=== PATIENT | male | born 1930 | race Hispanic/Latino ===

== ENCOUNTER 2018-01-28 13:35 | Inpatient (IN) | payer MEDICARE, BC ==
--- NOTE | 2018-01-28 14:06 | ED PDOC ---
Arrival/HPI - General Chief Complaint: Syncope Time Seen by Provider: 01/28/18 14:00 Historian: Patient - History of Present Illness Narrative History of Present Illness (Text): 01/28/18 14:00 87 year old male, whose past medical history includes afibrillation and cardiac catheter surgery 3 weeks ago, who presents to the Emergency Department s/p syncope. Patient states after his cardiac surgery, he experienced a GI bleed, for which he was treated for. Patient was at home when he passed out. Upon EMS arrival, patient was awake and alert, hypotensive, and bradycardiac. Patient was given 500cc normal saline and atropine 1mg. Patient has no complaints at this time. Time/Duration: Prior to Arrival Symptom Onset: Sudden Symptom Course: Unchanged Activities at Onset: Light Context: Home Past Medical History - Provider Review Nursing Documentation Reviewed: Yes - Cardiac Hx Congestive Heart Failure: Yes Hx Hypertension: Yes - Neurological Hx Paralysis: No - Hematological/Oncological Hx Blood Transfusions: No Hx Blood Transfusion Reaction: No - Musculoskeletal/Rheumatological Hx Musculoskeletal Disorders: No - Psychiatric Hx Emotional Abuse: No Hx Physical Abuse: No Hx Substance Use: No - Anesthesia Hx Anesthesia Reactions: No Hx Malignant Hyperthermia: No - Suicidal Assessment Feels Threatened In Home Enviroment: No Family/Social History - Physician Review Nursing Documentation Reviewed: Yes Family/Social History: Unknown Family HX Smoking Status: Former Smoker Hx Alcohol Use: No (QUIT 25 YRS AGO) Hx Substance Use: No Allergies/Home Meds Allergies/Adverse Reactions: Allergies Penicillins Allergy (Verified 01/28/18 13:39) RASH Home Medications: Home Meds Medication Instructions Recorded Confirmed Apixaban [Eliquis] 2.5 mg PO BID 01/28/18 01/28/18 Atorvastatin [Lipitor] 40 mg PO QPM 01/28/18 01/28/18 Clopidogrel [Plavix] 75 mg PO DAILY 01/28/18 01/28/18 Ferrous Sulfate [Feosol] 325 mg PO BID 01/28/18 01/28/18 Folic Acid 1 mg PO QPM 01/28/18 01/28/18 Furosemide [Lasix] 40 mg PO DAILY 01/28/18 01/28/18 Multivitamin [Honey Bears] 1 tab PO DAILY 01/28/18 01/28/18 Pantoprazole Sodium [Protonix] 20 mg PO DAILY 01/28/18 01/28/18 Review of Systems - Physician Review All systems were reviewed & negative as marked: Yes - Review of Systems Constitutional: Normal Eyes: Normal ENT: Normal Respiratory: Normal. absent: SOB, Cough Cardiovascular: Normal. absent: Chest Pain Gastrointestinal: Normal. absent: Abdominal Pain Genitourinary Male: Normal. absent: Dysuria, Frequency Musculoskeletal: Normal. absent: Back Pain, Neck Pain Skin: Normal. absent: Rash Neurological: Normal. absent: Headache, Dizziness Endocrine: Normal Hemo/Lymphatic: Normal Psychiatric: Normal Physical Exam Vital Signs Reviewed: Yes Vital Signs Temp Pulse Resp BP Pulse Ox 01/28/18 16:40 97.8 F 71 22 87/63 L 96 01/28/18 15:55 67 15 91/62 L 100 01/28/18 14:55 62 18 96/55 L 62 L 01/28/18 13:36 97.3 F L 72 23 92/63 L 96 Temperature: Afebrile Blood Pressure: Hypotensive Pulse: Regular Respiratory Rate: Normal Appearance: Positive for: Well-Appearing, Non-Toxic, Comfortable Pain Distress: None Mental Status: Positive for: Alert and Oriented X 3 Finger Stick Blood Glucose: 196 - Systems Exam Head: Present: Atraumatic, Normocephalic Pupils: Present: PERRL Extroacular Muscles: Present: EOMI Conjunctiva: Present: Normal Mouth: Present: Moist Mucous Membranes Neck: Present: Normal Range of Motion Respiratory/Chest: Present: Clear to Auscultation, Good Air Exchange. No: Resp iratory Distress, Accessory Muscle Use Cardiovascular: Present: Regular Rate and Rhythm, Normal S1, S2. No: Murmurs Abdomen: No: Tenderness, Distention, Peritoneal Signs Rectal: Present: Melena Back: Present: Normal Inspection Upper Extremity: Present: Normal Inspection. No: Cyanosis, Edema Lower Extremity: Present: Normal Inspection. No: Edema Neurological: Present: GCS=15, CN II-XII Intact, Speech Normal Skin: Present: Warm, Dry, Normal Color. 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 Differential Diagnosis included but are not limited to: GI bleed Plan: -- EKG -- Labs -- Chest X-ray -- Protonix -- Cardiac ISO -- CT Head -- Reassess and disposition Progress Notes: EKG reviewed, shows Sinus Rhythm with PAC'S at 74 bpm. Case discussed with Dr. Antonio, who is aware and agrees with plan. Requests Dr. Parrish for GI and Dr. Giordano for cardiology. 01/28/18 15:[address] Bey, who is aware and agrees with plan. Accepts pt to his service. 01/28/18 16:[address] Charlton, who recommends transfusing 1 unit of blood. 01/28/18 17:05 Chest X-ray reviewed, shows: IMPRESSION: Small bilateral pleural effusion. Questionable opacity at medial right lung base. Followup advised to exclude pneumonia. 01/28/18 17:33 CT Head reviewed, shows: IMPRESSION: No evidence of acute infarct. No intracranial hemorrhage. No intracranial mass. Ossification of anterior falx is mildly bulky and could inferior represent an anterior falx meningioma. Age-appropriate atrophy and chronic white matter ischemic change. 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 - Lab Interpretations Lab Results: 01/28/18 14:00 01/28/18 14:52 Lab Results 01/28/18 15:00: Blood Type Confirm O NEGATIVE 01/28/18 14:52: Phosphorus 5.1 H, Magnesium 2.2, NT-Pro-B Natriuret Pep 21834 H 01/28/18 14:52: Stool Occult Blood Negative 01/28/18 14:52: Sodium 140, Potassium 4.3, Chloride 105, Carbon Dioxide 24, Anion Gap 15, BUN 48 H, Creatinine 2.4 H, Est GFR ( Amer) 31, Est GFR (Non-Af Amer) 26, Random Glucose 152 H, Calcium 8.3 L, Total Bilirubin 0.7, AST 33, ALT 23, Alkaline Phosphatase 74, Lactate Dehydrogenase 637, Total Creatine Kinase 35, Troponin I 0.17 H*, Total Protein 6.5, Albumin 3.1, Globulin 3.4, Albumin/Globulin Ratio 0.9 L, Amylase 102, Lipase 261 01/28/18 14:00: Blood Type O NEGATIVE, Antibody Screen Negative, Crossmatch See Detail, BBK History Checked No verified bt 01/28/18 14:00: PT 17.9 H, INR 1.56, APTT 26.3 01/28/18 14:00: WBC 4.0 L, RBC 3.40 L, Hgb 8.9 L, Hct 30.5 L, MCV 89.7, MCH 26.2, MCHC 29.2 L, RDW 21.7 H, Plt Count 161, MPV 10.4, Gran % 73.6 H, Lymph % (Auto) 18.7 L, [place] % (Auto) 6.6 H, Eos % (Auto) 0.8 L, Baso % (Auto) 0.3, Gran # 2.92, Lymph # (Auto) 0.7 L, [place] # (Auto) 0.3, Eos # (Auto) 0.0, Baso # (Auto) 0.01 - RAD Interpretation Radiology Orders: 01/28/18 14:01 CHEST PORTABLE [RAD] Stat 01/28/18 16:01 HEAD W/O CONTRAST [CT] Stat - Medication Orders Current Medication Orders: Albuterol/Ipratropium (Duoneb 3 Mg/0.5 Mg (3 Ml) Ud) 3 ml IH [id number] PRN PRN Reason: Shortness of Breath Last Admin: 01/30/18 20:11 Dose: 3 ml Atorvastatin Calcium (Lipitor) 40 mg PO DIN NICO Calcium Carbonate (Caltrate) 600 mg PO DAILY [facility] Last Admin: 02/01/18 11:24 Dose: 600 mg Furosemide (Lasix) 40 mg PO DAILY [facility] Last Admin: 02/01/18 11:24 Dose: 40 mg MAR Blood Pressure Document 02/01/18 11:24 EAN (Rec: 02/01/18 11:25 EAN [id number]) Blood Pressure Blood Pressure (100/60-150/90 mm Hg) 108/71 Metolazone (Zaroxolyn) 5 mg PO DAILY [facility] Last Admin: 02/01/18 11:24 Dose: 5 mg Pantoprazole Sodium (Protonix Ec Tab) 40 mg PO 0600 NICO Potassium Chloride (Potassium Chloride Oral Soln) 20 meq PO DAILY [facility] Last Admin: 02/01/18 11:25 Dose: 20 meq Discontinued Medications Sodium Chloride (Sodium Chloride 0.9%) 500 mls @ 999 mls/hr IV .Q31M STA Stop: 01/28/18 15:13 Last Admin: 01/28/18 14:56 Dose: 999 mls/hr eMAR Start Stop Document 01/28/18 14:56 SRE (Rec: 01/28/18 14:56 SRE [id number]) Intravenous Solution Start Date 01/28/18 Start Time 14:56 End Date 01/28/18 End time 15:30 Total Infusion Time 34 Lorazepam (Ativan) 0.5 mg PO HS ONE; Protocol Stop: 01/29/18 22:01 Lorazepam (Ativan) 0.5 mg PO HS ONE; Protocol Stop: 01/29/18 22:01 Last Admin: 01/29/18 22:19 Dose: 0.5 mg Behavioural Document 01/29/18 22:19 FDE (Rec: 01/29/18 22:20 FDE [facility] [id number]) Maintenance Maintenance Dose Yes Nonmedicinal Nonmedicinal Interventions Redirect Behavior Behavior for Medication: Anxiety Insomnia Re-Assess: Reassess Psych Meds Document 01/29/18 23:19 FDE (Rec: 01/29/18 23:35 FDE [id number]) Reassess Psych Med Ineffective-LIP notifed Metolazone (Zaroxolyn) 5 mg PO ONCE ONE Stop: 01/28/18 20:20 Last Admin: 01/28/18 20:59 Dose: 5 mg Pantoprazole Sodium (Protonix Inj) 80 mg IVP STAT STA Stop: 01/28/18 14:02 Last Admin: 01/28/18 14:14 Dose: 80 mg IVP Administration Document 01/28/18 14:14 SOIL CONSERVATION TECHNICIAN (Rec: 01/28/18 14:14 SOIL CONSERVATION TECHNICIAN [facility] [id number] Charges for Administration # of IVP Administrations 1 Pantoprazole Sodium (Protonix Inj) 40 mg IVP Q12 NICO Last Admin: 01/31/18 22:14 Dose: 40 mg IVP Administration Document 01/31/18 22:14 OWUSR (Rec: 01/31/18 22:14 OWUSR [facility] [id number]) Charges for Administration # of IVP Administrations 1 Potassium Chloride (K-Dur 20 Meq Er Tab) 20 meq PO ONCE ONE Stop: 01/31/18 19:07 Last Admin: 01/31/18 20:22 Dose: 20 meq - Scribe Statement The provider has reviewed the documentation as recorded by the Scribe Manuela Sanchez All medical record entries made by the Scribe were at my direction and personally dictated by me. I have reviewed the chart and agree that the record accurately reflects my personal performance of the history, physical exam, medical decision making, and the department course for this patient. I have also personally directed, reviewed, and agree with the discharge instructions and disposition. Disposition/Present on Arrival - Present on Arrival Any Indicators Present on Arrival: No History of DVT/PE: No History of Uncontrolled Diabetes: No Urinary Catheter: No History of Decub. Ulcer: No History Surgical Site Infection Following: None - Disposition Have Diagnosis and Disposition been Completed?: Yes Diagnosis: Syncope, NSTEMI (non-ST elevated myocardial infarction) Disposition: HOSPITALIZED Disposition Time: 16:16 Patient Plan: Admission Condition: FAIR
[2018-01-28 14:29] LABS: BASO # 0.01 K/mm3 (0.0-2.0); BASO % 0.3 % (0.0-3.0); EOS % 0.8 % (1.5-5.0); GRAN # 2.92 (1.4-6.5); GRAN % 73.6 % (50.0-68.0); HEMOGLOBIN 8.9 g/dL (14.0-18.0); LYMPH # 0.7 (1.2-3.4); LYMPH % 18.7 % (22.0-35.0); MEAN CELL VOLUME 89.7 fl (80.0-105.0); MEAN CORPUSCULAR HEMOGLOBIN 26.2 pg (25.0-35.0); MEAN CORPUSCULAR HGB CONC 29.2 g/dl (31.0-37.0); MEAN PLATELET VOLUME 10.4 fl (7.0-11.0); MONO # 0.3 (0.1-0.6); MONO % 6.6 % (1.0-6.0); RBC 3.4 10^6/uL (3.5-6.1); RED CELL DISTRIBUTION WIDTH 21.7 % (11.5-14.5)
[2018-01-28 14:38] LABS: INR 1.56; PARTIAL THROMBOPLASTIN TIME 26.3 Seconds (25.1-36.5); PROTHROMBIN TIME 17.9 SECONDS (9.4-12.5)
[2018-01-28] MEDS ORDERED: Sodium Chloride 0.9% 500 ML IV STA (14:43)
[2018-01-28 15:06] LABS: ALB/GLOB RATIO 0.9 (1.1-1.8); ALBUMIN 3.1 g/dL (3.0-4.8); CALCIUM 8.3 mg/dL (8.4-10.5)
[2018-01-28 15:19] LABS: TROPONIN I 0.17 ng/mL
--- NOTE | 2018-01-28 16:29 | CP.PCM.PCO ---
Addendum Addendum: 01/28/18 16:21 GI Fellow PGY4 STAT consult for Dr. Parrish. Patient discussed with ED physician. We were consulted for anemia and reported melena. Patient was admitted for syncope and found to by hypotensive and BRADYCARDIC. There is no baseline for Hb and patient is on iron supplements ( black stool, FOBT negative). Per ED physician there are no other signs of active GI bleeding. Importantly, recent cardiac procedure, and troponin elevated now. Patient going to ICU for management for ?NSTEMI. We gave our recommendations to ED physcian: -1 unit pRBCs STAT and follow up Hb. If Hb responds appropriately, we can say with confidence low likelihood of GI bleed. Also, cardiac patient may benefit from Hb ~10. -Continue IV PPI -Defer eliquis, antiplatelet therapy to ICU/cardio -Would not recommend endoscopy until adequate resuscitation and cardiac etiology ruled out. Thank you.
--- NOTE | 2018-01-28 16:46 | RAD ---
Date of service: 01/28/2018 HISTORY: syncope COMPARISON: 11/13/2013 FINDINGS: LUNGS: Questionable opacity at medial right lung base. Followup advised. PLEURA: Small bilateral pleural effusion. CARDIOVASCULAR: Mild cardiomegaly. No congestive change. OSSEOUS STRUCTURES: No significant abnormalities. VISUALIZED UPPER ABDOMEN: Normal. OTHER FINDINGS: None. IMPRESSION: Small bilateral pleural effusion. Questionable opacity at medial right lung base. Followup advised to exclude pneumonia.
--- NOTE | 2018-01-28 16:47 | CP.PCM.CON ---
History of Present Illness - History of Present Illness History of Present Illness: MICU CONSULT NOTE HPI Patient is 87yo male with PMhx of CHF, uknown EF, CAD, Afib on Eliquis, recent cardiac cath presented to the ER with a episode of syncope and bradycardia. As per the ER staff patient was noted to be bradycardic by EMS and given Atropine 1mg x 1. Pt also notes he has had dark stools ( on iron Supplements, FOBT negative). Pt denies fever, chills, cough, chest pain, SOB, BRBPR. In the ER SBP ranging 90-110, HR 60-70s Patient is poor historian. PMhx CHF, uknown EF, CAD, Afib on Eliquis PSHx NONE FHx NC Meds as per EMR Social denies smoking, etoh, drug use Review of Systems - Review of Systems Review of Systems: as per HPI Past Patient History - Past Social History Smoking Status: Former Smoker - CARDIAC Hx Congestive Heart Failure: Yes Hx Hypertension: Yes - NEUROLOGICAL Hx Paralysis: No - HEMATOLOGICAL/ONCOLOGICAL Hx Blood Transfusions: No Hx Blood Transfusion Reaction: No - MUSCULOSKELETAL/RHEUMATOLOGICAL Hx Musculoskeletal Disorders: No - PSYCHIATRIC Hx Emotional Abuse: No Hx Physical Abuse: No Hx Substance Use: No - SURGICAL HISTORY Hx Surgeries: Yes - ANESTHESIA Hx Anesthesia Reactions: No Hx Malignant Hyperthermia: No Meds Allergies/Adverse Reactions: Allergies Allergy/AdvReac Type Severity Reaction Status Date / Time Penicillins Allergy RASH Verified 01/28/18 13:39 Physical Exam - Constitutional Appears: Non-toxic, No Acute Distress - Head Exam Head Exam: NORMAL INSPECTION - Eye Exam Eye Exam: Normal appearance - ENT Exam ENT Exam: Mucous Membranes Moist - Neck Exam Neck exam: Positive for: Full Rom - Respiratory Exam Respiratory Exam: Clear to Auscultation Bilateral, NORMAL BREATHING PATTERN - Cardiovascular Exam Cardiovascular Exam: Irregular Rhythm, +S1, +S2 - GI/Abdominal Exam GI & Abdominal Exam: Normal Bowel Sounds, Soft - Extremities Exam Additional comments: 2+ edema - Neurological Exam Neurological exam: Alert - Psychiatric Exam Psychiatric exam: Normal Affect - Skin Skin Exam: Normal Color, Warm Results - Vital Signs Recent Vital Signs: Last Vital Signs Temp 97.3 F L 01/28/18 13:36 Pulse 67 01/28/18 15:55 Resp 15 01/28/18 15:55 BP 91/62 L 01/28/18 15:55 Pulse Ox 100 01/28/18 15:55 - Labs Result Diagrams: 01/28/18 14:00 01/28/18 14:52 Labs: Laboratory Results - last 24 hr 01/28/18 01/28/18 01/28/18 14:00 14:00 14:00 WBC 4.0 L RBC 3.40 L Hgb 8.9 L Hct 30.5 L MCV 89.7 MCH 26.2 MCHC 29.2 L RDW 21.7 H Plt Count 161 MPV 10.4 Gran % 73.6 H Lymph % (Auto) 18.7 L [place] % (Auto) 6.6 H Eos % (Auto) 0.8 L Baso % (Auto) 0.3 Gran # 2.92 Lymph # (Auto) 0.7 L [place] # (Auto) 0.3 Eos # (Auto) 0.0 Baso # (Auto) 0.01 PT 17.9 H INR 1.56 APTT 26.3 Sodium Potassium Chloride Carbon Dioxide Anion Gap BUN Creatinine Est GFR ( Amer) Est GFR (Non-Af Amer) Random Glucose Calcium Total Bilirubin AST ALT Alkaline Phosphatase Lactate Dehydrogenase Total Creatine Kinase Troponin I Total Protein Albumin Globulin Albumin/Globulin Ratio Amylase Lipase Stool Occult Blood Blood Type O NEGATIVE Antibody Screen Negative BBK History Checked No verified bt 01/28/18 01/28/18 14:52 14:52 WBC RBC Hgb Hct MCV MCH MCHC RDW Plt Count MPV Gran % Lymph % (Auto) [place] % (Auto) Eos % (Auto) Baso % (Auto) Gran # Lymph # (Auto) [place] # (Auto) Eos # (Auto) Baso # (Auto) PT INR APTT Sodium 140 Potassium 4.3 Chloride 105 Carbon Dioxide 24 Anion Gap 15 BUN 48 H Creatinine 2.4 H Est GFR ( Amer) 31 Est GFR (Non-Af Amer) 26 Random Glucose 152 H Calcium 8.3 L Total Bilirubin 0.7 AST 33 ALT 23 Alkaline Phosphatase 74 Lactate Dehydrogenase 637 Total Creatine Kinase 35 Troponin I 0.17 H* Total Protein 6.5 Albumin 3.1 Globulin 3.4 Albumin/Globulin Ratio 0.9 L Amylase 102 Lipase 261 Stool Occult Blood Negative Blood Type Antibody Screen BBK History Checked Assessment & Plan - Assessment and Plan (Free Text) Assessment: 87yo male presents with anemia, and syncope Bradycardia Syncope Hypotension Anemia CAD CHF - currently afebrile, BP ranging 90-100, HR 70s, EKG NSR with APCs - benign abd exam - FOBT negative - labs imaging, chart reviewed - Troponin 0.17, HH 8.9, unknown baseline HH - CXR no consolidation, normal wbc Recommend: - supp o2 as needed, duonebs PRN, IS - panculture, UCx, BCx, check Procal, lactate - IVF hydration - serial CBCs, transfuse 1u prbc - maintain 2 large bore PIVs - PPI - NPO - GI eval - ECHO - cardiology eval - repeat cardiac enzymes - hold BP meds - GI ppx - DVT ppx - Admit to MICU
--- NOTE | 2018-01-28 17:28 | CT ---
Date of service: 01/28/2018 PROCEDURE: CT HEAD WITHOUT CONTRAST. HISTORY: syncope COMPARISON: None available. TECHNIQUE: Axial computed tomography images were obtained through the head/brain without intravenous contrast. Radiation dose: Total exam DLP = 2059.23 mGy-cm. This CT exam was performed using one or more of the following dose reduction techniques: Automated exposure control, adjustment of the mA and/or kV according to patient size, and/or use of iterative reconstruction technique. FINDINGS: HEMORRHAGE: No intracranial hemorrhage. BRAIN: No mass effect or edema. Mild diffuse age-appropriate atrophy. Old left cerebellar hemispheric infarct. Minimal chronic white matter ischemic change. Probable dilated perivascular space inferior to left lentiform nucleus. No evidence of acute infarct. Multifocal ossification of the falx cerebrum. Cannot rule out anterior falx meningioma. VENTRICLES: Unremarkable. No hydrocephalus. CALVARIUM: Unremarkable. PARANASAL SINUSES: Complete opacification of right maxillary sinus. 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 MASTOID AIR CELLS: Unremarkable as visualized. No inflammatory changes. OTHER FINDINGS: None. IMPRESSION: No evidence of acute infarct. No intracranial hemorrhage. No intracranial mass. Ossification of anterior falx is mildly bulky and could inferior represent an anterior falx meningioma. Age-appropriate atrophy and chronic white matter ischemic change. 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
[2018-01-28 18:25] VITALS: BMI 21.2
[2018-01-28 20:10] LABS: BASO # 0.01 K/mm3 (0.0-2.0); BASO % 0.3 % (0.0-3.0); GRAN # 2.64 (1.4-6.5); HEMOGLOBIN 8.7 g/dL (14.0-18.0); LYMPH # 0.7 (1.2-3.4); LYMPH % 20.2 % (22.0-35.0); MEAN CELL VOLUME 89.9 fl (80.0-105.0); MEAN CORPUSCULAR HEMOGLOBIN 26.7 pg (25.0-35.0); MEAN CORPUSCULAR HGB CONC 29.7 g/dl (31.0-37.0); MEAN PLATELET VOLUME 10.1 fl (7.0-11.0); MONO # 0.2 (0.1-0.6); MONO % 4.5 % (1.0-6.0); RBC 3.26 10^6/uL (3.5-6.1); RED CELL DISTRIBUTION WIDTH 21.6 % (11.5-14.5); WHITE BLOOD COUNT 3.5 10^3/ul (4.5-11.0)
[2018-01-28] MEDS ORDERED: metOLazone 5 MG TAB PO ONE (20:19)
[2018-01-28 20:23] LABS: ARTERIAL BLOOD GAS HCO3 23.6 mmol/L (21-28); ARTERIAL BLOOD GAS HEMOGLOBIN 8.3 g/dL (11.7-17.4); ARTERIAL BLOOD GAS O2 CAPACITY 11.6 mL/dl (16-24); ARTERIAL BLOOD GAS O2 CONTENT 11.5 ML/dl (15-23); ARTERIAL BLOOD GAS O2 SAT 99.2 % (95-98); ARTERIAL BLOOD GAS PCO2 39 mm/Hg (35-45); ARTERIAL BLOOD GAS PH 7.39 (7.35-7.45); ARTERIAL BLOOD GAS TCO2 24.8 mmol.L (22-28)
[2018-01-29 02:43] LABS: GRAN # 2.85 (1.4-6.5); GRAN % 69.2 % (50.0-68.0); HEMOGLOBIN 9.9 g/dL (14.0-18.0); LYMPH # 0.9 (1.2-3.4); LYMPH % 22.3 % (22.0-35.0); MEAN CELL VOLUME 90.3 fl (80.0-105.0); MEAN CORPUSCULAR HEMOGLOBIN 26.7 pg (25.0-35.0); MEAN CORPUSCULAR HGB CONC 29.6 g/dl (31.0-37.0); MEAN PLATELET VOLUME 10.6 fl (7.0-11.0); MONO # 0.4 (0.1-0.6); MONO % 8.5 % (1.0-6.0); RBC 3.71 10^6/uL (3.5-6.1); RED CELL DISTRIBUTION WIDTH 20.9 % (11.5-14.5); WHITE BLOOD COUNT 4.1 10^3/ul (4.5-11.0)
[2018-01-29 06:43] LABS: BASO # 0.01 K/mm3 (0.0-2.0); BASO % 0.2 % (0.0-3.0); GRAN # 2.95 (1.4-6.5); GRAN % 70.3 % (50.0-68.0); HEMOGLOBIN 9.7 g/dL (14.0-18.0); LYMPH % 23.8 % (22.0-35.0); MEAN CELL VOLUME 89.5 fl (80.0-105.0); MEAN CORPUSCULAR HEMOGLOBIN 26.7 pg (25.0-35.0); MEAN CORPUSCULAR HGB CONC 29.8 g/dl (31.0-37.0); MEAN PLATELET VOLUME 10.1 fl (7.0-11.0); MONO # 0.2 (0.1-0.6); MONO % 5.7 % (1.0-6.0); RBC 3.63 10^6/uL (3.5-6.1); RED CELL DISTRIBUTION WIDTH 20.9 % (11.5-14.5); WHITE BLOOD COUNT 4.2 10^3/ul (4.5-11.0)
[2018-01-29 06:51] LABS: INR 1.43; PARTIAL THROMBOPLASTIN TIME 26.6 Seconds (25.1-36.5); PROTHROMBIN TIME 16.6 SECONDS (9.4-12.5)
[2018-01-29 07:00] LABS: ALBUMIN 3.4 g/dL (3.0-4.8); CALCIUM 8.4 mg/dL (8.4-10.5)
--- NOTE | 2018-01-29 08:04 | CP.CCUPN ---
<Dominic Mendiola - Last Filed: 01/29/18 12:26> CCU Subjective - Physician Review Events Since Last Encounter (Free Text): 0 01/29/18 08:00 Subjective (Free Text): Dominic Mendiola, PGY-1, CCU Progress note for Dr. Plasencia Patient seen and examined at bedside. Patient received 1 U of PRBCs last night due to low hemoglobin and possibility of GI bleed. Patient today has been confused as per nurses but is AAOx3 on presentation. Patient reports shortness of breath on position change, constipation, and bilateral lower extremity edema. Patient denies fever, headache, dizzness, chest pain, heart palpitations , wheezing, cough, nausea, vomiting, diarrhea, dysuria, hematuria, weakness. Critical Care Time Spent (in minutes): 60 CCU Objective - Vital Signs / Intake & Output Vital Signs (Last 4 hours): Vital Signs Pulse 01/29/18 06:00 64 Intake and Output (Last 8hrs): Intake & Output 01/28/18 01/29/18 01/29/18 22:59 06:59 14:59 Intake Total 750 795 Output Total 0 230 Balance 750 565 Weight 140 lb 141 lb Intake: IV 750 Right Forearm 750 Oral 0 420 Blood Product 0 325 Red Blood Cells Cpd As1 0 325 Lr Unit [id number] Other 50 Red Blood Cells Cpd As1 50 Lr Unit [id number] Output: Urine 0 230 Urine, Voided 0 230 Other: # Bowel Movements 0 - Physical Exam Head: Positive for: Atraumatic, Normocephalic Pupils: Positive for: PERRL Extroacular Muscles: Positive for: EOMI Conjunctiva: Positive for: Normal Mouth: Positive for: Dry Neck: Positive for: Normal Range of Motion Respiratory/Chest: Positive for: Wheezes (bilateral upper lobes), Rales (mild at bilateral lower lobes). Negative for: Respiratory Distress, Accessory Muscle Use Cardiovascular: Positive for: Normal S1, S2, Irregular Rhythm (normal rate). Negative for: Murmurs Abdomen: Positive for: Normal Bowel Sounds. Negative for: Tenderness, Distention, Peritoneal Signs Back: Positive for: Normal Inspection. Negative for: CVA Tenderness Upper Extremity: Positive for: Normal Inspection. Negative for: Cyanosis, Edema Lower Extremity: Positive for: Normal Inspection, Edema (+3 bilateral lower extremity pitting edema), Normal ROM, Capillary Refill < 2 s. Negative for: CALF TENDERNESS, Cyanosis, Liana's Sign Neurological: Positive for: GCS=15, CN II-XII Intact, Speech Normal, Normal Sensory Function Skin: Positive for: Dry, Normal Color, Cold, Other (bilateral lower extremity brown and red discoloration ). Negative for: Rashes Psychiatric: Positive for: Alert, Oriented x 3, Normal Insight, Normal Mood - Medications Active Medications: Active Medications Generic Name Dose Route Start Last Admin Trade Name Freq PRN Reason Stop Dose Admin Calcium Carbonate 600 mg 01/29/18 10:00 Caltrate PO DAILY NICO Furosemide 40 mg 01/28/18 21:00 01/29/18 00:49 Lasix PO 40 mg DAILY NICO Administration Pantoprazole Sodium 40 mg 01/29/18 10:00 Protonix Inj IVP Q12 NICO - Patient Studies Lab Studies: Lab Studies 01/29/18 01/29/18 01/29/18 Range/Units 05:30 05:30 05:30 WBC 4.2 L (4.5-11.0) 10^3/ul RBC 3.63 (3.5-6.1) 10^6/uL Hgb 9.7 L (14.0-18.0) g/dL Hct 32.5 L (42.0-52.0) % MCV 89.5 (80.0-105.0) fl MCH 26.7 (25.0-35.0) pg MCHC 29.8 L (31.0-37.0) g/dl RDW 20.9 H (11.5-14.5) % Plt Count 140 (120.0-450.0) 10^3/uL MPV 10.1 (7.0-11.0) fl Gran % 70.3 H (50.0-68.0) % Lymph % (Auto) 23.8 (22.0-35.0) % Harper % (Auto) 5.7 (1.0-6.0) % Eos % (Auto) 0.0 L (1.5-5.0) % Baso % (Auto) 0.2 (0.0-3.0) % Gran # 2.95 (1.4-6.5) Lymph # (Auto) 1.0 L (1.2-3.4) Harper # (Auto) 0.2 (0.1-0.6) Eos # (Auto) 0.0 (0.0-0.7) Baso # (Auto) 0.01 (0.0-2.0) K/mm3 PT 16.6 H (9.4-12.5) SECONDS INR 1.43 APTT 26.6 (25.1-36.5) Seconds pCO2 (35-45) mm/Hg pO2 (80-100) mm/Hg HCO3 (21-28) mmol/L ABG pH (7.35-7.45) ABG Total CO2 (22-28) mmol.L ABG O2 Saturation (95-98) % ABG O2 Content (15-23) ML/dl ABG Base Excess (-2.0-3.0) mmol/L ABG Hemoglobin (11.7-17.4) g/dL ABG Carboxyhemoglobin (0.5-1.5) % POC ABG HHb (Measured) (0-5) % ABG Methemoglobin (0.0-3.0) % ABG O2 Capacity (16-24) mL/dl Hgb O2 Saturation (95.0-98.0) % FiO2 % Sodium 140 (132-148) mmol/L Potassium 4.2 (3.6-5.0) mmol/L Chloride 104 (98-107) mmol/L Carbon Dioxide 24 (21-33) mmol/L Anion Gap 16 (10-20) BUN 51 H (7-21) mg/dL Creatinine 2.8 H (0.8-1.5) mg/dl Est GFR ( Amer) 26 Est GFR (Non-Af Amer) 22 Random Glucose 118 H (70-110) mg/dL Lactic Acid (0.7-2.1) mmol/L Calcium 8.4 (8.4-10.5) mg/dL Phosphorus 6.5 H (2.5-4.5) mg/dL Magnesium 2.1 (1.7-2.2) mg/dL Total Bilirubin 1.4 H (0.2-1.3) mg/dL AST 31 (17-59) U/L ALT 23 (7-56) U/L Alkaline Phosphatase 87 (38-126) U/L Troponin I ng/mL Total Protein 6.9 (5.8-8.3) g/dL Albumin 3.4 (3.0-4.8) g/dL Globulin 3.5 gm/dL Albumin/Globulin Ratio 1.0 L (1.1-1.8) 01/29/18 01/29/18 01/28/18 Range/Units 02:20 02:20 20:15 WBC 4.1 L (4.5-11.0) 10^3/ul RBC 3.71 (3.5-6.1) 10^6/uL Hgb 9.9 L (14.0-18.0) g/dL Hct 33.5 L (42.0-52.0) % MCV 90.3 (80.0-105.0) fl MCH 26.7 (25.0-35.0) pg MCHC 29.6 L (31.0-37.0) g/dl RDW 20.9 H (11.5-14.5) % Plt Count 138 (120.0-450.0) 10^3/uL MPV 10.6 (7.0-11.0) fl Gran % 69.2 H (50.0-68.0) % Lymph % (Auto) 22.3 (22.0-35.0) % Harper % (Auto) 8.5 H (1.0-6.0) % Eos % (Auto) 0.0 L (1.5-5.0) % Baso % (Auto) 0.0 (0.0-3.0) % Gran # 2.85 (1.4-6.5) Lymph # (Auto) 0.9 L (1.2-3.4) Harper # (Auto) 0.4 (0.1-0.6) Eos # (Auto) 0.0 (0.0-0.7) Baso # (Auto) 0.00 (0.0-2.0) K/mm3 PT (9.4-12.5) SECONDS INR APTT (25.1-36.5) Seconds pCO2 39 (35-45) mm/Hg pO2 121.0 H (80-100) mm/Hg HCO3 23.6 (21-28) mmol/L ABG pH 7.39 (7.35-7.45) ABG Total CO2 24.8 (22-28) mmol.L ABG O2 Saturation 99.2 H (95-98) % ABG O2 Content 11.5 L (15-23) ML/dl ABG Base Excess -1.2 (-2.0-3.0) mmol/L ABG Hemoglobin 8.3 L (11.7-17.4) g/dL ABG Carboxyhemoglobin 1.9 H (0.5-1.5) % POC ABG HHb (Measured) 0.8 (0-5) % ABG Methemoglobin 0.7 (0.0-3.0) % ABG O2 Capacity 11.6 L (16-24) mL/dl Hgb O2 Saturation 96.6 (95.0-98.0) % FiO2 32.0 % Sodium (132-148) mmol/L Potassium (3.6-5.0) mmol/L Chloride (98-107) mmol/L Carbon Dioxide (21-33) mmol/L Anion Gap (10-20) BUN (7-21) mg/dL Creatinine (0.8-1.5) mg/dl Est GFR ( Amer) Est GFR (Non-Af Amer) Random Glucose (70-110) mg/dL Lactic Acid (0.7-2.1) mmol/L Calcium (8.4-10.5) mg/dL Phosphorus (2.5-4.5) mg/dL Magnesium (1.7-2.2) mg/dL Total Bilirubin (0.2-1.3) mg/dL AST (17-59) U/L ALT (7-56) U/L Alkaline Phosphatase (38-126) U/L Troponin I 0.15 H* ng/mL Total Protein (5.8-8.3) g/dL Albumin (3.0-4.8) g/dL Globulin gm/dL Albumin/Globulin Ratio (1.1-1.8) 01/28/18 01/28/18 01/28/18 Range/Units 20:00 20:00 20:00 WBC 3.5 L (4.5-11.0) 10^3/ul RBC 3.26 L (3.5-6.1) 10^6/uL Hgb 8.7 L (14.0-18.0) g/dL Hct 29.3 L (42.0-52.0) % MCV 89.9 (80.0-105.0) fl MCH 26.7 (25.0-35.0) pg MCHC 29.7 L (31.0-37.0) g/dl RDW 21.6 H (11.5-14.5) % Plt Count 144 (120.0-450.0) 10^3/uL MPV 10.1 (7.0-11.0) fl Gran % 75.0 H (50.0-68.0) % Lymph % (Auto) 20.2 L (22.0-35.0) % Harper % (Auto) 4.5 (1.0-6.0) % Eos % (Auto) 0.0 L (1.5-5.0) % Baso % (Auto) 0.3 (0.0-3.0) % Gran # 2.64 (1.4-6.5) Lymph # (Auto) 0.7 L (1.2-3.4) Harper # (Auto) 0.2 (0.1-0.6) Eos # (Auto) 0.0 (0.0-0.7) Baso # (Auto) 0.01 (0.0-2.0) K/mm3 PT (9.4-12.5) SECONDS INR APTT (25.1-36.5) Seconds pCO2 (35-45) mm/Hg pO2 (80-100) mm/Hg HCO3 (21-28) mmol/L ABG pH (7.35-7.45) ABG Total CO2 (22-28) mmol.L ABG O2 Saturation (95-98) % ABG O2 Content (15-23) ML/dl ABG Base Excess (-2.0-3.0) mmol/L ABG Hemoglobin (11.7-17.4) g/dL ABG Carboxyhemoglobin (0.5-1.5) % POC ABG HHb (Measured) (0-5) % ABG Methemoglobin (0.0-3.0) % ABG O2 Capacity (16-24) mL/dl Hgb O2 Saturation (95.0-98.0) % FiO2 % Sodium (132-148) mmol/L Potassium (3.6-5.0) mmol/L Chloride (98-107) mmol/L Carbon Dioxide (21-33) mmol/L Anion Gap (10-20) BUN (7-21) mg/dL Creatinine (0.8-1.5) mg/dl Est GFR ( Amer) Est GFR (Non-Af Amer) Random Glucose (70-110) mg/dL Lactic Acid 2.0 (0.7-2.1) mmol/L Calcium (8.4-10.5) mg/dL Phosphorus (2.5-4.5) mg/dL Magnesium (1.7-2.2) mg/dL Total Bilirubin (0.2-1.3) mg/dL AST (17-59) U/L ALT (7-56) U/L Alkaline Phosphatase (38-126) U/L Troponin I 0.17 H* ng/mL Total Protein (5.8-8.3) g/dL Albumin (3.0-4.8) g/dL Globulin gm/dL Albumin/Globulin Ratio (1.1-1.8) Laboratory Results - last 24 hr 01/28/18 01/28/18 01/28/18 20:00 20:00 20:00 WBC 3.5 L RBC 3.26 L Hgb 8.7 L Hct 29.3 L MCV 89.9 MCH 26.7 MCHC 29.7 L RDW 21.6 H Plt Count 144 MPV 10.1 Gran % 75.0 H Lymph % (Auto) 20.2 L Harper % (Auto) 4.5 Eos % (Auto) 0.0 L Baso % (Auto) 0.3 Gran # 2.64 Lymph # (Auto) 0.7 L Harper # (Auto) 0.2 Eos # (Auto) 0.0 Baso # (Auto) 0.01 PT INR APTT pCO2 pO2 HCO3 ABG pH ABG Total CO2 ABG O2 Saturation ABG O2 Content ABG Base Excess ABG Hemoglobin ABG Carboxyhemoglobin POC ABG HHb (Measured) ABG Methemoglobin ABG O2 Capacity Hgb O2 Saturation FiO2 Sodium Potassium Chloride Carbon Dioxide Anion Gap BUN Creatinine Est GFR ( Amer) Est GFR (Non-Af Amer) Random Glucose Lactic Acid 2.0 Calcium Phosphorus Magnesium Total Bilirubin AST ALT Alkaline Phosphatase Troponin I 0.17 H* Total Protein Albumin Globulin Albumin/Globulin Ratio 01/28/18 01/29/18 01/29/18 20:15 02:20 02:20 WBC 4.1 L RBC 3.71 Hgb 9.9 L Hct 33.5 L MCV 90.3 MCH 26.7 MCHC 29.6 L RDW 20.9 H Plt Count 138 MPV 10.6 Gran % 69.2 H Lymph % (Auto) 22.3 Harper % (Auto) 8.5 H Eos % (Auto) 0.0 L Baso % (Auto) 0.0 Gran # 2.85 Lymph # (Auto) 0.9 L Harper # (Auto) 0.4 Eos # (Auto) 0.0 Baso # (Auto) 0.00 PT INR APTT pCO2 39 pO2 121.0 H HCO3 23.6 ABG pH 7.39 ABG Total CO2 24.8 ABG O2 Saturation 99.2 H ABG O2 Content 11.5 L ABG Base Excess -1.2 ABG Hemoglobin 8.3 L ABG Carboxyhemoglobin 1.9 H POC ABG HHb (Measured) 0.8 ABG Methemoglobin 0.7 ABG O2 Capacity 11.6 L Hgb O2 Saturation 96.6 FiO2 32.0 Sodium Potassium Chloride Carbon Dioxide Anion Gap BUN Creatinine Est GFR ( Amer) Est GFR (Non-Af Amer) Random Glucose Lactic Acid Calcium Phosphorus Magnesium Total Bilirubin AST ALT Alkaline Phosphatase Troponin I 0.15 H* Total Protein Albumin Globulin Albumin/Globulin Ratio 01/29/18 01/29/18 01/29/18 05:30 05:30 05:30 WBC 4.2 L RBC 3.63 Hgb 9.7 L Hct 32.5 L MCV 89.5 MCH 26.7 MCHC 29.8 L RDW 20.9 H Plt Count 140 MPV 10.1 Gran % 70.3 H Lymph % (Auto) 23.8 Harper % (Auto) 5.7 Eos % (Auto) 0.0 L Baso % (Auto) 0.2 Gran # 2.95 Lymph # (Auto) 1.0 L Harper # (Auto) 0.2 Eos # (Auto) 0.0 Baso # (Auto) 0.01 PT 16.6 H INR 1.43 APTT 26.6 pCO2 pO2 HCO3 ABG pH ABG Total CO2 ABG O2 Saturation ABG O2 Content ABG Base Excess ABG Hemoglobin ABG Carboxyhemoglobin POC ABG HHb (Measured) ABG Methemoglobin ABG O2 Capacity Hgb O2 Saturation FiO2 Sodium 140 Potassium 4.2 Chloride 104 Carbon Dioxide 24 Anion Gap 16 BUN 51 H Creatinine 2.8 H Est GFR ( Amer) 26 Est GFR (Non-Af Amer) 22 Random Glucose 118 H Lactic Acid Calcium 8.4 Phosphorus 6.5 H Magnesium 2.1 Total Bilirubin 1.4 H AST 31 ALT 23 Alkaline Phosphatase 87 Troponin I Total Protein 6.9 Albumin 3.4 Globulin 3.5 Albumin/Globulin Ratio 1.0 L Fingerstick Blood Sugar Results: 196 Review of Systems - Constitutional Constitutional: absent: Fever, Chills - EENT Eyes: absent: Blurred Vision Ears: absent: Decreased Hearing Nose/Mouth/Throat: Sore Throat (mild) - Cardiovascular Cardiovascular: Orthopnea, Paroxysmal Nocturnal Dyspnea. absent: Chest Pain, Palpitations - Respiratory Respiratory: Cough (clear sputum), Wheezing - Gastrointestinal Gastrointestinal: Change in Stool Character (dark stool for past 3 months), Constipation (last bowel movement was 3 days ago). absent: Abdominal Pain, Diarrhea, Dysphagia, Nausea, Vomiting - Genitourinary Genitourinary: absent: Change in Urinary Stream, Dysuria, Hematuria - Musculoskeletal Musculoskeletal: absent: Arthralgias, Back Pain - Integumentary Integumentary: absent: Rash - Neurological Neurological: Syncope. absent: Tremor, Weakness - Psychiatric Psychiatric: absent: Anxiety, Depression Critical Care Progress Note - Ventilator Checklist Head of Bed 30 Degrees: Yes - Extremities/Vascular Does the Patient have a Central Venous Catheter?: No - Prophylaxis GI Prophylaxis GI: PPI - Prophylaxis DVT Prophylaxis DVT: SCDs - Nutrition Nutrition: Nutrition Category Date Time Status Liquid Diet [DIET] Diets 01/28/18 Dinner Ordered Assessment/Plan - Assessment and Plan (Free Text) Assessment: 87 year old with past medical history of atrial fibrillation, CAD, CHF with unknown EF, and GI bleed presents with a syncopal episode 1 day ago. Plan: Neuro: -AAOx3 this AM -Patient is reported more confused as per nursing staff. -Patient received lasix 40 mg PO daily. -Reorient as necessary. -Monitor mental status of patient. Cardiac: -Patient with CHF with unknown EF, Atrial fibrillation, CAD with recent stent placement at unknown date. -Troponin: 0.17, 0.17, 0.15. Elevated likely due to prior cardiac event and renal status. -BNP: 03746 -Patient aspirin and plavix held by GI. -Patient has fluctuated between bradycardia and tachycardia. Not considering coreg at this time. Consider pacemaker and start coreg after pacemaker insertion. -Patient has renal injury as per BUN/Cr. Baseline is unknown. Not considering HALIE inhibitor or ARB at this time. -Consider starting eliquis for therapeutic anticoagulation. Patient's INR was subtherapeutic at 1.43 today. -Continue lasix PO. -Echocardiogram ordered today to determine etiology of CHF. -Dr. Cooney, Cardiology, consulted -Patient will be transferred to the telemetry floor. Respiratory: -Patient is 100% on 2L NC. -Patient is a long time smoker. -CXR on 01/28 shows small bilateral pleural effusion. Questionable opacity seen at medial right lung base. -Patient currently on lasix for CHF exacerbation. -Duonebs PRN -Continue to monitor. GI: -Patient evaluated for GI bleed. -Patient reports black stools for 3 months. -Patient has been taking iron supplementation at home. -Hgb: 9.7 from 8.9 on admission after 1 U PRBCs. -Continue protonix 40 mg BID. -Dr. Parrish, GI, consulted. ID: -Patient is afebrile. Patient does not fulfill SIRS criteria. -Panculture, blood culture, urine culture, procalcitonin ordered to rule out infection as etiology for syncope. -Continue to monitor vital signs. Renal: -Patient's BUN/Creatinine: 51/2.8. -Baseline unknown. -Maintain euvolemia. -PO4: 6.5. Phosphate binder, calcium carbonate started. Recheck PO4 next day AM. -Avoid HALIE inhibitors/ARB, contrast, nephrotoxins. : -UO: 230ml for last 24 hours. Patient reported had 2 incontinent episodes. -Consider urinalysis, urine culture. Endocrinology: -Patient has no diabetes history. -Patient's last glucose level was 118. -Maintain euglycemia. -Continue to monitor. Hematology/Oncology -Hgb 9.7 from 8.9 on admission after 1 U PRBC given last night. -Rule out GI bleed as etiology for anemia. -Iron, TIBC, ferritin ordered. -Continue to monitor. DVT ppx: SCD GI ppx: protonix 40 mg BID Dominic Mendiola, PGY-1, CCU progress note for Dr. Plasencia. - Date & Time Date: 01/29/18 Time: 08:13 <Carlitos Plasenciaal - Last Filed: 01/29/18 14:13> CCU Objective - Vital Signs / Intake & Output Vital Signs (Last 4 hours): Vital Signs Pulse Resp 01/29/18 10:50 74 16 01/29/18 10:40 81 18 01/29/18 10:30 83 16 01/29/18 10:20 85 14 01/29/18 10:15 95 H 17 Intake and Output (Last 8hrs): Intake & Output 01/28/18 01/29/18 01/29/18 22:59 06:59 14:59 Intake Total 750 795 Output Total 0 230 Balance 750 565 Weight 140 lb 141 lb Intake: IV 750 Right Forearm 750 Oral 0 420 Blood Product 0 325 Red Blood Cells Cpd As1 0 325 Lr Unit [id number] Other 50 Red Blood Cells Cpd As1 50 Lr Unit [id number] Output: Urine 0 230 Urine, Voided 0 230 Other: # Bowel Movements 0 - Medications Active Medications: Active Medications Generic Name Dose Route Start Last Admin Trade Name Freq PRN Reason Stop Dose Admin Albuterol/Ipratropium 3 ml 01/29/18 10:56 Duoneb 3 Mg/0.5 Mg (3 Ml) Ud IH [id number] PRN Shortness of Breath Calcium Carbonate 600 mg 01/29/18 10:00 01/29/18 10:12 Caltrate PO 600 mg DAILY NICO Administration Furosemide 40 mg 01/28/18 21:00 01/29/18 10:11 Lasix PO 40 mg DAILY NICO Administration Pantoprazole Sodium 40 mg 01/29/18 10:00 01/29/18 10:11 Protonix Inj IVP 40 mg Q12 NICO Administration - Patient Studies Lab Studies: Lab Studies 01/29/18 01/29/18 01/29/18 Range/Units 08:50 05:30 05:30 WBC 4.2 L (4.5-11.0) 10^3/ul RBC 3.69 (3.5-6.1) 10^6/uL Hgb 9.8 L (14.0-18.0) g/dL Hct 33.0 L (42.0-52.0) % MCV 89.4 (80.0-105.0) fl MCH 26.6 (25.0-35.0) pg MCHC 29.7 L (31.0-37.0) g/dl RDW 21.0 H (11.5-14.5) % Plt Count 132 (120.0-450.0) 10^3/uL MPV 10.1 (7.0-11.0) fl Gran % 68.8 H (50.0-68.0) % Lymph % (Auto) 24.6 (22.0-35.0) % Harper % (Auto) 6.4 H (1.0-6.0) % Eos % (Auto) 0.0 L (1.5-5.0) % Baso % (Auto) 0.2 (0.0-3.0) % Gran # 2.88 (1.4-6.5) Lymph # (Auto) 1.0 L (1.2-3.4) Harper # (Auto) 0.3 (0.1-0.6) Eos # (Auto) 0.0 (0.0-0.7) Baso # (Auto) 0.01 (0.0-2.0) K/mm3 Retic Count 2.26 H (0.5-1.5) % PT (9.4-12.5) SECONDS INR APTT (25.1-36.5) Seconds pCO2 (35-45) mm/Hg pO2 (80-100) mm/Hg HCO3 (21-28) mmol/L ABG pH (7.35-7.45) ABG Total CO2 (22-28) mmol.L ABG O2 Saturation (95-98) % ABG O2 Content (15-23) ML/dl ABG Base Excess (-2.0-3.0) mmol/L ABG Hemoglobin (11.7-17.4) g/dL ABG Carboxyhemoglobin (0.5-1.5) % POC ABG HHb (Measured) (0-5) % ABG Methemoglobin (0.0-3.0) % ABG O2 Capacity (16-24) mL/dl Hgb O2 Saturation (95.0-98.0) % FiO2 % Sodium 140 (132-148) mmol/L Potassium 4.2 (3.6-5.0) mmol/L Chloride 104 (98-107) mmol/L Carbon Dioxide 24 (21-33) mmol/L Anion Gap 16 (10-20) BUN 51 H (7-21) mg/dL Creatinine 2.8 H (0.8-1.5) mg/dl Est GFR ( Amer) 26 Est GFR (Non-Af Amer) 22 Random Glucose 118 H (70-110) mg/dL Lactic Acid (0.7-2.1) mmol/L Calcium 8.4 (8.4-10.5) mg/dL Phosphorus 6.5 H (2.5-4.5) mg/dL Magnesium 2.1 (1.7-2.2) mg/dL Total Bilirubin 1.4 H (0.2-1.3) mg/dL AST 31 (17-59) U/L ALT 23 (7-56) U/L Alkaline Phosphatase 87 (38-126) U/L Troponin I ng/mL Total Protein 6.9 (5.8-8.3) g/dL Albumin 3.4 (3.0-4.8) g/dL Globulin 3.5 gm/dL Albumin/Globulin Ratio 1.0 L (1.1-1.8) Procalcitonin (0.19-0.49) NG/ML 01/29/18 01/29/18 01/29/18 Range/Units 05:30 05:30 02:20 WBC 4.2 L (4.5-11.0) 10^3/ul RBC 3.63 (3.5-6.1) 10^6/uL Hgb 9.7 L (14.0-18.0) g/dL Hct 32.5 L (42.0-52.0) % MCV 89.5 (80.0-105.0) fl MCH 26.7 (25.0-35.0) pg MCHC 29.8 L (31.0-37.0) g/dl RDW 20.9 H (11.5-14.5) % Plt Count 140 (120.0-450.0) 10^3/uL MPV 10.1 (7.0-11.0) fl Gran % 70.3 H (50.0-68.0) % Lymph % (Auto) 23.8 (22.0-35.0) % Harper % (Auto) 5.7 (1.0-6.0) % Eos % (Auto) 0.0 L (1.5-5.0) % Baso % (Auto) 0.2 (0.0-3.0) % Gran # 2.95 (1.4-6.5) Lymph # (Auto) 1.0 L (1.2-3.4) Harper # (Auto) 0.2 (0.1-0.6) Eos # (Auto) 0.0 (0.0-0.7) Baso # (Auto) 0.01 (0.0-2.0) K/mm3 Retic Count (0.5-1.5) % PT 16.6 H (9.4-12.5) SECONDS INR 1.43 APTT 26.6 (25.1-36.5) Seconds pCO2 (35-45) mm/Hg pO2 (80-100) mm/Hg HCO3 (21-28) mmol/L ABG pH (7.35-7.45) ABG Total CO2 (22-28) mmol.L ABG O2 Saturation (95-98) % ABG O2 Content (15-23) ML/dl ABG Base Excess (-2.0-3.0) mmol/L ABG Hemoglobin (11.7-17.4) g/dL ABG Carboxyhemoglobin (0.5-1.5) % POC ABG HHb (Measured) (0-5) % ABG Methemoglobin (0.0-3.0) % ABG O2 Capacity (16-24) mL/dl Hgb O2 Saturation (95.0-98.0) % FiO2 % Sodium (132-148) mmol/L Potassium (3.6-5.0) mmol/L Chloride (98-107) mmol/L Carbon Dioxide (21-33) mmol/L Anion Gap (10-20) BUN (7-21) mg/dL Creatinine (0.8-1.5) mg/dl Est GFR ( Amer) Est GFR (Non-Af Amer) Random Glucose (70-110) mg/dL Lactic Acid (0.7-2.1) mmol/L Calcium (8.4-10.5) mg/dL Phosphorus (2.5-4.5) mg/dL Magnesium (1.7-2.2) mg/dL Total Bilirubin (0.2-1.3) mg/dL AST (17-59) U/L ALT (7-56) U/L Alkaline Phosphatase (38-126) U/L Troponin I 0.15 H* ng/mL Total Protein (5.8-8.3) g/dL Albumin (3.0-4.8) g/dL Globulin gm/dL Albumin/Globulin Ratio (1.1-1.8) Procalcitonin (0.19-0.49) NG/ML 01/29/18 01/28/18 01/28/18 Range/Units 02:20 20:15 20:05 WBC 4.1 L (4.5-11.0) 10^3/ul RBC 3.71 (3.5-6.1) 10^6/uL Hgb 9.9 L (14.0-18.0) g/dL Hct 33.5 L (42.0-52.0) % MCV 90.3 (80.0-105.0) fl MCH 26.7 (25.0-35.0) pg MCHC 29.6 L (31.0-37.0) g/dl RDW 20.9 H (11.5-14.5) % Plt Count 138 (120.0-450.0) 10^3/uL MPV 10.6 (7.0-11.0) fl Gran % 69.2 H (50.0-68.0) % Lymph % (Auto) 22.3 (22.0-35.0) % Harper % (Auto) 8.5 H (1.0-6.0) % Eos % (Auto) 0.0 L (1.5-5.0) % Baso % (Auto) 0.0 (0.0-3.0) % Gran # 2.85 (1.4-6.5) Lymph # (Auto) 0.9 L (1.2-3.4) Harper # (Auto) 0.4 (0.1-0.6) Eos # (Auto) 0.0 (0.0-0.7) Baso # (Auto) 0.00 (0.0-2.0) K/mm3 Retic Count (0.5-1.5) % PT (9.4-12.5) SECONDS INR APTT (25.1-36.5) Seconds pCO2 39 (35-45) mm/Hg pO2 121.0 H (80-100) mm/Hg HCO3 23.6 (21-28) mmol/L ABG pH 7.39 (7.35-7.45) ABG Total CO2 24.8 (22-28) mmol.L ABG O2 Saturation 99.2 H (95-98) % ABG O2 Content 11.5 L (15-23) ML/dl ABG Base Excess -1.2 (-2.0-3.0) mmol/L ABG Hemoglobin 8.3 L (11.7-17.4) g/dL ABG Carboxyhemoglobin 1.9 H (0.5-1.5) % POC ABG HHb (Measured) 0.8 (0-5) % ABG Methemoglobin 0.7 (0.0-3.0) % ABG O2 Capacity 11.6 L (16-24) mL/dl Hgb O2 Saturation 96.6 (95.0-98.0) % FiO2 32.0 % Sodium (132-148) mmol/L Potassium (3.6-5.0) mmol/L Chloride (98-107) mmol/L Carbon Dioxide (21-33) mmol/L Anion Gap (10-20) BUN (7-21) mg/dL Creatinine (0.8-1.5) mg/dl Est GFR ( Amer) Est GFR (Non-Af Amer) Random Glucose (70-110) mg/dL Lactic Acid (0.7-2.1) mmol/L Calcium (8.4-10.5) mg/dL Phosphorus (2.5-4.5) mg/dL Magnesium (1.7-2.2) mg/dL Total Bilirubin (0.2-1.3) mg/dL AST (17-59) U/L ALT (7-56) U/L Alkaline Phosphatase (38-126) U/L Troponin I ng/mL Total Protein (5.8-8.3) g/dL Albumin (3.0-4.8) g/dL Globulin gm/dL Albumin/Globulin Ratio (1.1-1.8) Procalcitonin 0.05 L (0.19-0.49) NG/ML 01/28/18 01/28/18 01/28/18 Range/Units 20:00 20:00 20:00 WBC 3.5 L (4.5-11.0) 10^3/ul RBC 3.26 L (3.5-6.1) 10^6/uL Hgb 8.7 L (14.0-18.0) g/dL Hct 29.3 L (42.0-52.0) % MCV 89.9 (80.0-105.0) fl MCH 26.7 (25.0-35.0) pg MCHC 29.7 L (31.0-37.0) g/dl RDW 21.6 H (11.5-14.5) % Plt Count 144 (120.0-450.0) 10^3/uL MPV 10.1 (7.0-11.0) fl Gran % 75.0 H (50.0-68.0) % Lymph % (Auto) 20.2 L (22.0-35.0) % Harper % (Auto) 4.5 (1.0-6.0) % Eos % (Auto) 0.0 L (1.5-5.0) % Baso % (Auto) 0.3 (0.0-3.0) % Gran # 2.64 (1.4-6.5) Lymph # (Auto) 0.7 L (1.2-3.4) Harper # (Auto) 0.2 (0.1-0.6) Eos # (Auto) 0.0 (0.0-0.7) Baso # (Auto) 0.01 (0.0-2.0) K/mm3 Retic Count (0.5-1.5) % PT (9.4-12.5) SECONDS INR APTT (25.1-36.5) Seconds pCO2 (35-45) mm/Hg pO2 (80-100) mm/Hg HCO3 (21-28) mmol/L ABG pH (7.35-7.45) ABG Total CO2 (22-28) mmol.L ABG O2 Saturation (95-98) % ABG O2 Content (15-23) ML/dl ABG Base Excess (-2.0-3.0) mmol/L ABG Hemoglobin (11.7-17.4) g/dL ABG Carboxyhemoglobin (0.5-1.5) % POC ABG HHb (Measured) (0-5) % ABG Methemoglobin (0.0-3.0) % ABG O2 Capacity (16-24) mL/dl Hgb O2 Saturation (95.0-98.0) % FiO2 % Sodium (132-148) mmol/L Potassium (3.6-5.0) mmol/L Chloride (98-107) mmol/L Carbon Dioxide (21-33) mmol/L Anion Gap (10-20) BUN (7-21) mg/dL Creatinine (0.8-1.5) mg/dl Est GFR ( Amer) Est GFR (Non-Af Amer) Random Glucose (70-110) mg/dL Lactic Acid 2.0 (0.7-2.1) mmol/L Calcium (8.4-10.5) mg/dL Phosphorus (2.5-4.5) mg/dL Magnesium (1.7-2.2) mg/dL Total Bilirubin (0.2-1.3) mg/dL AST (17-59) U/L ALT (7-56) U/L Alkaline Phosphatase (38-126) U/L Troponin I 0.17 H* ng/mL Total Protein (5.8-8.3) g/dL Albumin (3.0-4.8) g/dL Globulin gm/dL Albumin/Globulin Ratio (1.1-1.8) Procalcitonin (0.19-0.49) NG/ML Laboratory Results - last 24 hr 01/28/18 01/28/18 01/28/18 20:00 20:00 20:00 WBC 3.5 L RBC 3.26 L Hgb 8.7 L Hct 29.3 L MCV 89.9 MCH 26.7 MCHC 29.7 L RDW 21.6 H Plt Count 144 MPV 10.1 Gran % 75.0 H Lymph % (Auto) 20.2 L Harper % (Auto) 4.5 Eos % (Auto) 0.0 L Baso % (Auto) 0.3 Gran # 2.64 Lymph # (Auto) 0.7 L Harper # (Auto) 0.2 Eos # (Auto) 0.0 Baso # (Auto) 0.01 Retic Count PT INR APTT pCO2 pO2 HCO3 ABG pH ABG Total CO2 ABG O2 Saturation ABG O2 Content ABG Base Excess ABG Hemoglobin ABG Carboxyhemoglobin POC ABG HHb (Measured) ABG Methemoglobin ABG O2 Capacity Hgb O2 Saturation FiO2 Sodium Potassium Chloride Carbon Dioxide Anion Gap BUN Creatinine Est GFR ( Amer) Est GFR (Non-Af Amer) Random Glucose Lactic Acid 2.0 Calcium Phosphorus Magnesium Total Bilirubin AST ALT Alkaline Phosphatase Troponin I 0.17 H* Total Protein Albumin Globulin Albumin/Globulin Ratio Procalcitonin 01/28/18 01/28/18 01/29/18 20:05 20:15 02:20 WBC 4.1 L RBC 3.71 Hgb 9.9 L Hct 33.5 L MCV 90.3 MCH 26.7 MCHC 29.6 L RDW 20.9 H Plt Count 138 MPV 10.6 Gran % 69.2 H Lymph % (Auto) 22.3 Harper % (Auto) 8.5 H Eos % (Auto) 0.0 L Baso % (Auto) 0.0 Gran # 2.85 Lymph # (Auto) 0.9 L Harper # (Auto) 0.4 Eos # (Auto) 0.0 Baso # (Auto) 0.00 Retic Count PT INR APTT pCO2 39 pO2 121.0 H HCO3 23.6 ABG pH 7.39 ABG Total CO2 24.8 ABG O2 Saturation 99.2 H ABG O2 Content 11.5 L ABG Base Excess -1.2 ABG Hemoglobin 8.3 L ABG Carboxyhemoglobin 1.9 H POC ABG HHb (Measured) 0.8 ABG Methemoglobin 0.7 ABG O2 Capacity 11.6 L Hgb O2 Saturation 96.6 FiO2 32.0 Sodium Potassium Chloride Carbon Dioxide Anion Gap BUN Creatinine Est GFR ( Amer) Est GFR (Non-Af Amer) Random Glucose Lactic Acid Calcium Phosphorus Magnesium Total Bilirubin AST ALT Alkaline Phosphatase Troponin I Total Protein Albumin Globulin Albumin/Globulin Ratio Procalcitonin 0.05 L 01/29/18 01/29/18 01/29/18 02:20 05:30 05:30 WBC 4.2 L RBC 3.63 Hgb 9.7 L Hct 32.5 L MCV 89.5 MCH 26.7 MCHC 29.8 L RDW 20.9 H Plt Count 140 MPV 10.1 Gran % 70.3 H Lymph % (Auto) 23.8 Harper % (Auto) 5.7 Eos % (Auto) 0.0 L Baso % (Auto) 0.2 Gran # 2.95 Lymph # (Auto) 1.0 L [place] # (Auto) 0.2 Eos # (Auto) 0.0 Baso # (Auto) 0.01 Retic Count PT 16.6 H INR 1.43 APTT 26.6 pCO2 pO2 HCO3 ABG pH ABG Total CO2 ABG O2 Saturation ABG O2 Content ABG Base Excess ABG Hemoglobin ABG Carboxyhemoglobin POC ABG HHb (Measured) ABG Methemoglobin ABG O2 Capacity Hgb O2 Saturation FiO2 Sodium Potassium Chloride Carbon Dioxide Anion Gap BUN Creatinine Est GFR ( Amer) Est GFR (Non-Af Amer) Random Glucose Lactic Acid Calcium Phosphorus Magnesium Total Bilirubin AST ALT Alkaline Phosphatase Troponin I 0.15 H* Total Protein Albumin Globulin Albumin/Globulin Ratio Procalcitonin 01/29/18 01/29/18 01/29/18 05:30 05:30 08:50 WBC 4.2 L RBC 3.69 Hgb 9.8 L Hct 33.0 L MCV 89.4 MCH 26.6 MCHC 29.7 L RDW 21.0 H Plt Count 132 MPV 10.1 Gran % 68.8 H Lymph % (Auto) 24.6 [place] % (Auto) 6.4 H Eos % (Auto) 0.0 L Baso % (Auto) 0.2 Gran # 2.88 Lymph # (Auto) 1.0 L [place] # (Auto) 0.3 Eos # (Auto) 0.0 Baso # (Auto) 0.01 Retic Count 2.26 H PT INR APTT pCO2 pO2 HCO3 ABG pH ABG Total CO2 ABG O2 Saturation ABG O2 Content ABG Base Excess ABG Hemoglobin ABG Carboxyhemoglobin POC ABG HHb (Measured) ABG Methemoglobin ABG O2 Capacity Hgb O2 Saturation FiO2 Sodium 140 Potassium 4.2 Chloride 104 Carbon Dioxide 24 Anion Gap 16 BUN 51 H Creatinine 2.8 H Est GFR ( Amer) 26 Est GFR (Non-Af Amer) 22 Random Glucose 118 H Lactic Acid Calcium 8.4 Phosphorus 6.5 H Magnesium 2.1 Total Bilirubin 1.4 H AST 31 ALT 23 Alkaline Phosphatase 87 Troponin I Total Protein 6.9 Albumin 3.4 Globulin 3.5 Albumin/Globulin Ratio 1.0 L Procalcitonin Critical Care Progress Note - Nutrition Nutrition: Nutrition Category Date Time Status Liquid Diet [DIET] Diets 01/28/18 Dinner Ordered Addendum Addendum: 01/29/18 14:12 ICU Attending Addendum: Patient seen and examined. Case reviewed on round with housestaff. Agree with resident note above with the following additions/exceptions: 87 M atrial fibrillation on eliquis, CAD s/p GERALD august 2017, CHF reduced EF, and duodenal AVM admitted with sycnope On telemetry his HR is variable from low 60s up to 110 over the course of 5 minutes without activity. He was reported found bradycardic by EMS and on BB at home. 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 Cardio consulted, he should be evaulated for PPM placement which would then allow us to beta block him safely. He may also need an AICD based on last echo. -Hold BB for now -Cardio eval for PPM and/or AICD -hold HALIE-i given renal function -resume antiplat and eliquis once ok with GI -cont lasix po daily I doubt bleeding is the cause of his syncope. His stool was neg for bleed. HB has been stable. No indication to transfuse or stop AC. Would resume anticoag once ok with GI. Cont Iron. Extensive smoking hx, likely has underlying COPD. Should have f/u outpatient with pulm. For now, cont nebs and keep sat 92%. Can titrate oxygen down. Unclear baseline kidney function. obtain prior records. Monitor urine output and check chem daily. Stable for transfer out of ICU Must be on tele for tach-romulo Bilal Luis Angel HASSAN Keyboard Operator
--- NOTE | 2018-01-29 09:01 | CP.PCM.PN ---
Subjective - Date & Time of Evaluation Date of Evaluation: 01/29/18 Time of Evaluation: 08:57 - Subjective Subjective: Dharmesh Mclaughlin Internal Medicine Resident - Progress Note for GI service Patient seen and evaluated this AM. Overnight patient transfused 1 unit pRBC. Reports some shortness of breath, elevated heart rate and having to urinate multiple times overnight. Patient denies chest pain, abdominal pain, passage of stool. Objective - Vital Signs/Intake and Output Vital Signs (last 24 hours): Temp Pulse Resp BP Pulse Ox 97.8 F 64 17 114/58 L 100 01/29/18 04:00 01/29/18 06:00 01/28/18 23:58 01/29/18 00:49 01/28/18 23:30 Intake and Output: 01/29/18 01/29/18 06:59 18:59 Intake Total 795 Output Total 230 Balance 565 - Medications Medications: Current Medications Calcium Carbonate (Caltrate) 600 mg PO DAILY NICO Furosemide (Lasix) 40 mg PO DAILY NICO Last Admin: 01/29/18 00:49 Dose: 40 mg Pantoprazole Sodium (Protonix Inj) 40 mg IVP Q12 NICO - Labs Labs: 01/29/18 05:30 01/29/18 05:30 PT 16.6 SECONDS (9.4-12.5) H 01/29/18 05:30 INR 1.43 01/29/18 05:30 APTT 26.6 Seconds (25.1-36.5) 01/29/18 05:30 - Constitutional Appears: Non-toxic - Head Exam Head Exam: ATRAUMATIC, NORMAL INSPECTION, NORMOCEPHALIC - Eye Exam Eye Exam: EOMI, PERRL - ENT Exam ENT Exam: Mucous Membranes Moist Additional comments: Patient with small abrasion measuring 0.3x0.3cm over bridge of nose - Neck Exam Neck Exam: Full ROM - Respiratory Exam Respiratory Exam: NORMAL BREATHING PATTERN. absent: Wheezes, Respiratory Distress - Cardiovascular Exam Cardiovascular Exam: Irregular Rhythm, JVD. absent: Murmur - GI/Abdominal Exam GI & Abdominal Exam: Soft, Normal Bowel Sounds. absent: Firm, Guarding, Rigid, Tenderness - Extremities Exam Extremities Exam: Pedal Edema (3+ b/l ) Additional comments: Lower extremities exhibiting chronic venous stasis changes b/l, no wheeping lesions appreciated Lower extremities cool to touch b/l - Neurological Exam Neurological Exam: Alert, Awake, Oriented x3 Neuro motor strength exam: Left Upper Extremity: 5, Right Upper Extremity: 5, Left Lower Extremity: 5, Right Lower Extremity: 5 - Psychiatric Exam Psychiatric exam: Normal Affect, Normal Mood - Skin Skin Exam: Dry, Intact Assessment and Plan - Assessment and Plan (Free Text) Assessment: 87 year old male with past medical history of CHF with unknown EF, CAD, atrial fibrillation on Eliquis who [place] [facility] with episode of syncope and bradycardia. Patient is admitted to ICU for CHF exacerbation and GI bleed. Patient is s/p transfusion of 1 unit pRBC Plan: GI bleed - suspected lower GI bleed - s/p transfusion of 1 unit pRBC, Hemoglobin increased from 8.7 to 9.9 - serial CBC - Hemoglobin goal >8 - continue protonix - Echo pending - Maintain MAP >65 mmHG Further recommendations per Dr. Parrish
[2018-01-29 09:04] LABS: BASO # 0.01 K/mm3 (0.0-2.0); BASO % 0.2 % (0.0-3.0); GRAN # 2.88 (1.4-6.5); GRAN % 68.8 % (50.0-68.0); HEMOGLOBIN 9.8 g/dL (14.0-18.0); LYMPH % 24.6 % (22.0-35.0); MEAN CELL VOLUME 89.4 fl (80.0-105.0); MEAN CORPUSCULAR HEMOGLOBIN 26.6 pg (25.0-35.0); MEAN CORPUSCULAR HGB CONC 29.7 g/dl (31.0-37.0); MEAN PLATELET VOLUME 10.1 fl (7.0-11.0); MONO # 0.3 (0.1-0.6); MONO % 6.4 % (1.0-6.0); RBC 3.69 10^6/uL (3.5-6.1); WHITE BLOOD COUNT 4.2 10^3/ul (4.5-11.0)
--- NOTE | 2018-01-29 09:32 | CP.PCM.CON ---
<Sj Mclaughlin - Last Filed: 01/29/18 12:25> History of Present Illness - History of Present Illness History of Present Illness: Dharmesh Mclaughlin Internal Medicine Resident - Consultation Note for GI service CC: GI bleed HPI: 87 year old male with past medical history of systolic CHF with last known EF of 30%, atrial fibrillation on eliquis, CAD with recent cardiac cath s/p GERALD in 08/2017, diverticulosis and duodenal AVM who presented to [facility] [place] [place] [facility] with complaints of syncopal episode and bradycardia. Patient reported he had passed out in his home and when he came to he decided to come to the ED. He indicates that for the past 2-3 weeks he has had black/blue stools. He states this is not normal for him. He reports starting an iron tablet for low iron the day prior to his admission. Patient reports that he has had previous GI workup involving both EGD and duodenoscopy(x2), and Capsule endoscopy within the past few months. He is unsure of the specifics regarding the results of these tests. His records have been requested from [facility] [place] and GI office. Patient complains of shortness of breath, chronic leg edema bilaterally and dizziness. He denies abdominal discomfort, nausea, vomiting, poor oral intake, diarrhea, constipation, bright red blood per rectum. PMH: Systolic CHF last known EF of ~30%, Atrial fibrillation on Eliquis, CAD s/ p GERALD, Diverticulosis, duodenal AVM PSH: None FMH: NC SOCHx: Denies Tobacco, ETOH, Illicit drugs ALL: PCN MEDS: Ferrous Sulfate 325mg PO BID, Plavix 75mg PO Daily, Protonix 20mg PO daily , Folic ACID 1mg PO Daily, Lipitor 40mg PO Daily, MV PO Daily, Furosemide 40mg PO Daily, Eliquis 2.5mg PO BID Auto Parts Manager: Dr. Durán Review of Systems - Review of Systems All systems: reviewed and no additional remarkable complaints except (as mentioned in HPI) Past Patient History - Past Social History Smoking Status: Former Smoker Alcohol: None Drugs: Denies - CARDIAC Hx Congestive Heart Failure: Yes Hx Hypertension: Yes - NEUROLOGICAL Hx Paralysis: No - HEMATOLOGICAL/ONCOLOGICAL Hx Blood Transfusions: No Hx Blood Transfusion Reaction: No - MUSCULOSKELETAL/RHEUMATOLOGICAL Hx Falls: Yes - PSYCHIATRIC Hx Emotional Abuse: No Hx Physical Abuse: No - SURGICAL HISTORY Hx Surgeries: Yes - ANESTHESIA Hx Anesthesia Reactions: No Hx Malignant Hyperthermia: No Meds Allergies/Adverse Reactions: Allergies Allergy/AdvReac Type Severity Reaction Status Date / Time Penicillins Allergy RASH Verified 01/28/18 13:39 - Medications Medications: Current Medications Calcium Carbonate (Caltrate) 600 mg PO DAILY NICO Furosemide (Lasix) 40 mg PO DAILY NICO Last Admin: 01/29/18 00:49 Dose: 40 mg Pantoprazole Sodium (Protonix Inj) 40 mg IVP Q12 NICO Physical Exam - Head Exam Head Exam: ATRAUMATIC, NORMAL INSPECTION, NORMOCEPHALIC - Eye Exam Eye Exam: EOMI, PERRL - ENT Exam ENT Exam: Mucous Membranes Moist Additional comments: small abrasion noted over bridge of nose 0.5x0.5cm - Respiratory Exam Respiratory Exam: NORMAL BREATHING PATTERN. absent: Rhonchi, Wheezes - Cardiovascular Exam Cardiovascular Exam: Irregular Rhythm, JVD, +S1, +S2 - GI/Abdominal Exam GI & Abdominal Exam: Normal Bowel Sounds, Soft. absent: Firm, Guarding, Tenderness - Extremities Exam Extremities exam: Positive for: pedal edema (3+ pitting edema bilaterally ). Negative for: calf tenderness, tenderness Additional comments: chronic venous stasis skin changes appreciated, no active drainage or weeping - Back Exam Back exam: absent: CVA tenderness (L), CVA tenderness (R) - Neurological Exam Neurological exam: Alert, CN II-XII Intact, Normal Gait, Oriented x3 - Psychiatric Exam Psychiatric exam: Normal Affect, Normal Mood - Skin Skin Exam: Dry, Intact Results - Vital Signs Recent Vital Signs: Last Vital Signs Temp 97.8 F 01/29/18 04:00 Pulse 64 01/29/18 06:00 Resp 17 01/28/18 23:58 BP 114/58 L 01/29/18 00:49 Pulse Ox 100 01/28/18 23:30 - Labs Result Diagrams: 01/29/18 08:50 01/29/18 05:30 Labs: Laboratory Results - last 24 hr 01/28/18 01/28/18 01/28/18 20:00 20:00 20:00 WBC 3.5 L RBC 3.26 L Hgb 8.7 L Hct 29.3 L MCV 89.9 MCH 26.7 MCHC 29.7 L RDW 21.6 H Plt Count 144 MPV 10.1 Gran % 75.0 H Lymph % (Auto) 20.2 L [place] % (Auto) 4.5 Eos % (Auto) 0.0 L Baso % (Auto) 0.3 Gran # 2.64 Lymph # (Auto) 0.7 L [place] # (Auto) 0.2 Eos # (Auto) 0.0 Baso # (Auto) 0.01 PT INR APTT pCO2 pO2 HCO3 ABG pH ABG Total CO2 ABG O2 Saturation ABG O2 Content ABG Base Excess ABG Hemoglobin ABG Carboxyhemoglobin POC ABG HHb (Measured) ABG Methemoglobin ABG O2 Capacity Hgb O2 Saturation FiO2 Sodium Potassium Chloride Carbon Dioxide Anion Gap BUN Creatinine Est GFR ( Amer) Est GFR (Non-Af Amer) Random Glucose Lactic Acid 2.0 Calcium Phosphorus Magnesium Total Bilirubin AST ALT Alkaline Phosphatase Troponin I 0.17 H* Total Protein Albumin Globulin Albumin/Globulin Ratio 01/28/18 01/29/18 01/29/18 20:15 02:20 02:20 WBC 4.1 L RBC 3.71 Hgb 9.9 L Hct 33.5 L MCV 90.3 MCH 26.7 MCHC 29.6 L RDW 20.9 H Plt Count 138 MPV 10.6 Gran % 69.2 H Lymph % (Auto) 22.3 [place] % (Auto) 8.5 H Eos % (Auto) 0.0 L Baso % (Auto) 0.0 Gran # 2.85 Lymph # (Auto) 0.9 L [place] # (Auto) 0.4 Eos # (Auto) 0.0 Baso # (Auto) 0.00 PT INR APTT pCO2 39 pO2 121.0 H HCO3 23.6 ABG pH 7.39 ABG Total CO2 24.8 ABG O2 Saturation 99.2 H ABG O2 Content 11.5 L ABG Base Excess -1.2 ABG Hemoglobin 8.3 L ABG Carboxyhemoglobin 1.9 H POC ABG HHb (Measured) 0.8 ABG Methemoglobin 0.7 ABG O2 Capacity 11.6 L Hgb O2 Saturation 96.6 FiO2 32.0 Sodium Potassium Chloride Carbon Dioxide Anion Gap BUN Creatinine Est GFR ( Amer) Est GFR (Non-Af Amer) Random Glucose Lactic Acid Calcium Phosphorus Magnesium Total Bilirubin AST ALT Alkaline Phosphatase Troponin I 0.15 H* Total Protein Albumin Globulin Albumin/Globulin Ratio 01/29/18 01/29/18 01/29/18 05:30 05:30 05:30 WBC 4.2 L RBC 3.63 Hgb 9.7 L Hct 32.5 L MCV 89.5 MCH 26.7 MCHC 29.8 L RDW 20.9 H Plt Count 140 MPV 10.1 Gran % 70.3 H Lymph % (Auto) 23.8 [place] % (Auto) 5.7 Eos % (Auto) 0.0 L Baso % (Auto) 0.2 Gran # 2.95 Lymph # (Auto) 1.0 L [place] # (Auto) 0.2 Eos # (Auto) 0.0 Baso # (Auto) 0.01 PT 16.6 H INR 1.43 APTT 26.6 pCO2 pO2 HCO3 ABG pH ABG Total CO2 ABG O2 Saturation ABG O2 Content ABG Base Excess ABG Hemoglobin ABG Carboxyhemoglobin POC ABG HHb (Measured) ABG Methemoglobin ABG O2 Capacity Hgb O2 Saturation FiO2 Sodium 140 Potassium 4.2 Chloride 104 Carbon Dioxide 24 Anion Gap 16 BUN 51 H Creatinine 2.8 H Est GFR ( Amer) 26 Est GFR (Non-Af Amer) 22 Random Glucose 118 H Lactic Acid Calcium 8.4 Phosphorus 6.5 H Magnesium 2.1 Total Bilirubin 1.4 H AST 31 ALT 23 Alkaline Phosphatase 87 Troponin I Total Protein 6.9 Albumin 3.4 Globulin 3.5 Albumin/Globulin Ratio 1.0 L 01/29/18 08:50 WBC 4.2 L RBC 3.69 Hgb 9.8 L Hct 33.0 L MCV 89.4 MCH 26.6 MCHC 29.7 L RDW 21.0 H Plt Count 132 MPV 10.1 Gran % 68.8 H Lymph % (Auto) 24.6 [place] % (Auto) 6.4 H Eos % (Auto) 0.0 L Baso % (Auto) 0.2 Gran # 2.88 Lymph # (Auto) 1.0 L [place] # (Auto) 0.3 Eos # (Auto) 0.0 Baso # (Auto) 0.01 PT INR APTT pCO2 pO2 HCO3 ABG pH ABG Total CO2 ABG O2 Saturation ABG O2 Content ABG Base Excess ABG Hemoglobin ABG Carboxyhemoglobin POC ABG HHb (Measured) ABG Methemoglobin ABG O2 Capacity Hgb O2 Saturation FiO2 Sodium Potassium Chloride Carbon Dioxide Anion Gap BUN Creatinine Est GFR ( Amer) Est GFR (Non-Af Amer) Random Glucose Lactic Acid Calcium Phosphorus Magnesium Total Bilirubin AST ALT Alkaline Phosphatase Troponin I Total Protein Albumin Globulin Albumin/Globulin Ratio Assessment & Plan - Assessment and Plan (Free Text) Assessment: 87 year old male with past medical history of systolic CHF with last known EF of 30%, atrial fibrillation on eliquis, CAD with recent cardiac cath s/p GERALD in 08/2017, diverticulosis and duodenal AVM who presented to [facility] [place] [facility] with complaints of syncopal episode and bradycardia. GI team is consulted for suspected GI bleed. Patient is s/p 1 unit pRBC with correlated elevation of hgb. Patient is currently being monitored in ICU. Plan: Suspected GI bleed Anemia Syncope Bradycardia Hx of duodenal AVM Hx of Diverticulosis Systolic CHF Afib on AC -Serial CBC for monitoring of H/H -H/H stable at this time -Request previous records and imaging from [facility] [place] -Reach out to Auto [employer] Manager Dr. Durán for further information -No plan for endoscopy procedure at this time -Maintain MAP >65mmHg -Goal Hgb >8 considering cardiac patient -TOMI Coreas as per ICU team - Date & Time Date: 01/29/18 Time: 08:30 <Sharon Parrish V - Last Filed: 01/29/18 20:21> Meds - Medications Medications: Current Medications Albuterol/Ipratropium (Duoneb 3 Mg/0.5 Mg (3 Ml) Ud) 3 ml IH A3CGVCV PRN PRN Reason: Shortness of Breath Calcium Carbonate (Caltrate) 600 mg PO DAILY [facility] Last Admin: 01/29/18 10:12 Dose: 600 mg Furosemide (Lasix) 40 mg PO DAILY [facility] Last Admin: 01/29/18 10:11 Dose: 40 mg Lorazepam (Ativan) 0.5 mg PO HS ONE PRN Reason: Protocol Stop: 01/29/18 22:01 Pantoprazole Sodium (Protonix Inj) 40 mg IVP Q12 [facility] Last Admin: 01/29/18 10:11 Dose: 40 mg Results - Vital Signs Recent Vital Signs: Last Vital Signs Temp 97.5 F L 01/29/18 20:00 Pulse 87 01/29/18 20:00 Resp 23 01/29/18 20:00 BP 105/54 L 01/29/18 16:02 Pulse Ox 74 L 01/29/18 13:10 - Labs Result Diagrams: 01/29/18 14:38 01/29/18 05:30 Labs: Laboratory Results - last 24 hr 01/28/18 01/28/18 01/28/18 20:00 20:00 20:05 WBC RBC Hgb Hct MCV MCH MCHC RDW Plt Count MPV Gran % Lymph % (Auto) [place] % (Auto) Eos % (Auto) Baso % (Auto) Gran # Lymph # (Auto) [place] # (Auto) Eos # (Auto) Baso # (Auto) Retic Count PT INR APTT pCO2 pO2 HCO3 ABG pH ABG Total CO2 ABG O2 Saturation ABG O2 Content ABG Base Excess ABG Hemoglobin ABG Carboxyhemoglobin POC ABG HHb (Measured) ABG Methemoglobin ABG O2 Capacity Hgb O2 Saturation FiO2 Sodium Potassium Chloride Carbon Dioxide Anion Gap BUN Creatinine Est GFR ( Amer) Est GFR (Non-Af Amer) Random Glucose Lactic Acid 2.0 Calcium Phosphorus Magnesium Iron TIBC % Saturation Ferritin Total Bilirubin AST ALT Alkaline Phosphatase Troponin I 0.17 H* Total Protein Albumin Globulin Albumin/Globulin Ratio Procalcitonin 0.05 L 01/28/18 01/29/18 01/29/18 20:15 02:20 02:20 WBC 4.1 L RBC 3.71 Hgb 9.9 L Hct 33.5 L MCV 90.3 MCH 26.7 MCHC 29.6 L RDW 20.9 H Plt Count 138 MPV 10.6 Gran % 69.2 H Lymph % (Auto) 22.3 [place] % (Auto) 8.5 H Eos % (Auto) 0.0 L Baso % (Auto) 0.0 Gran # 2.85 Lymph # (Auto) 0.9 L [place] # (Auto) 0.4 Eos # (Auto) 0.0 Baso # (Auto) 0.00 Retic Count PT INR APTT pCO2 39 pO2 121.0 H HCO3 23.6 ABG pH 7.39 ABG Total CO2 24.8 ABG O2 Saturation 99.2 H ABG O2 Content 11.5 L ABG Base Excess -1.2 ABG Hemoglobin 8.3 L ABG Carboxyhemoglobin 1.9 H POC ABG HHb (Measured) 0.8 ABG Methemoglobin 0.7 ABG O2 Capacity 11.6 L Hgb O2 Saturation 96.6 FiO2 32.0 Sodium Potassium Chloride Carbon Dioxide Anion Gap BUN Creatinine Est GFR ( Amer) Est GFR (Non-Af Amer) Random Glucose Lactic Acid Calcium Phosphorus Magnesium Iron TIBC % Saturation Ferritin Total Bilirubin AST ALT Alkaline Phosphatase Troponin I 0.15 H* Total Protein Albumin Globulin Albumin/Globulin Ratio Procalcitonin 01/29/18 01/29/18 01/29/18 05:30 05:30 05:30 WBC 4.2 L RBC 3.63 Hgb 9.7 L Hct 32.5 L MCV 89.5 MCH 26.7 MCHC 29.8 L RDW 20.9 H Plt Count 140 MPV 10.1 Gran % 70.3 H Lymph % (Auto) 23.8 [place] % (Auto) 5.7 Eos % (Auto) 0.0 L Baso % (Auto) 0.2 Gran # 2.95 Lymph # (Auto) 1.0 L [place] # (Auto) 0.2 Eos # (Auto) 0.0 Baso # (Auto) 0.01 Retic Count PT 16.6 H INR 1.43 APTT 26.6 pCO2 pO2 HCO3 ABG pH ABG Total CO2 ABG O2 Saturation ABG O2 Content ABG Base Excess ABG Hemoglobin ABG Carboxyhemoglobin POC ABG HHb (Measured) ABG Methemoglobin ABG O2 Capacity Hgb O2 Saturation FiO2 Sodium 140 Potassium 4.2 Chloride 104 Carbon Dioxide 24 Anion Gap 16 BUN 51 H Creatinine 2.8 H Est GFR ( Amer) 26 Est GFR (Non-Af Amer) 22 Random Glucose 118 H Lactic Acid Calcium 8.4 Phosphorus 6.5 H Magnesium 2.1 Iron TIBC % Saturation Ferritin Total Bilirubin 1.4 H AST 31 ALT 23 Alkaline Phosphatase 87 Troponin I Total Protein 6.9 Albumin 3.4 Globulin 3.5 Albumin/Globulin Ratio 1.0 L Procalcitonin 01/29/18 01/29/18 01/29/18 05:30 05:30 08:50 WBC 4.2 L RBC 3.69 Hgb 9.8 L Hct 33.0 L MCV 89.4 MCH 26.6 MCHC 29.7 L RDW 21.0 H Plt Count 132 MPV 10.1 Gran % 68.8 H Lymph % (Auto) 24.6 [place] % (Auto) 6.4 H Eos % (Auto) 0.0 L Baso % (Auto) 0.2 Gran # 2.88 Lymph # (Auto) 1.0 L [place] # (Auto) 0.3 Eos # (Auto) 0.0 Baso # (Auto) 0.01 Retic Count 2.26 H PT INR APTT pCO2 pO2 HCO3 ABG pH ABG Total CO2 ABG O2 Saturation ABG O2 Content ABG Base Excess ABG Hemoglobin ABG Carboxyhemoglobin POC ABG HHb (Measured) ABG Methemoglobin ABG O2 Capacity Hgb O2 Saturation FiO2 Sodium Potassium Chloride Carbon Dioxide Anion Gap BUN Creatinine Est GFR ( Amer) Est GFR (Non-Af Amer) Random Glucose Lactic Acid Calcium Phosphorus Magnesium Iron TIBC % Saturation Ferritin 36.6 Total Bilirubin AST ALT Alkaline Phosphatase Troponin I Total Protein Albumin Globulin Albumin/Globulin Ratio Procalcitonin 01/29/18 01/29/18 14:38 14:38 WBC 4.7 RBC 3.65 Hgb 9.8 L Hct 32.6 L MCV 89.3 MCH 26.8 MCHC 30.1 L RDW 21.1 H Plt Count 151 MPV 10.6 Gran % 58.6 Lymph % (Auto) 31.6 [place] % (Auto) 9.2 H Eos % (Auto) 0.4 L Baso % (Auto) 0.2 Gran # 2.74 Lymph # (Auto) 1.5 [place] # (Auto) 0.4 Eos # (Auto) 0.0 Baso # (Auto) 0.01 Retic Count PT INR APTT pCO2 pO2 HCO3 ABG pH ABG Total CO2 ABG O2 Saturation ABG O2 Content ABG Base Excess ABG Hemoglobin ABG Carboxyhemoglobin POC ABG HHb (Measured) ABG Methemoglobin ABG O2 Capacity Hgb O2 Saturation FiO2 Sodium Potassium Chloride Carbon Dioxide Anion Gap BUN Creatinine Est GFR ( Amer) Est GFR (Non-Af Amer) Random Glucose Lactic Acid Calcium Phosphorus Magnesium Iron 42 L TIBC 318 % Saturation 13 L Ferritin Total Bilirubin AST ALT Alkaline Phosphatase Troponin I Total Protein Albumin Globulin Albumin/Globulin Ratio Procalcitonin Attending/Attestation - Attestation I have personally seen and examined this patient.: Yes I have fully participated in the care of the patient.: Yes I have reviewed all pertinent clinical information: Yes Notes (Text): This is an addendum to GI consult report dictated by the Executive Officer.The patient was seen and evaluated earlier. Medical records, lab studies, imagings were reviewed. Last 24 hours events reviewed. Agreed with the above treatment plan as outlined in Executive Officer 's notes with the addition of the following This patient was recently in [facility] Had EGD done by DR. Durán on 01/09/18. It revealed three small AVMs in descending duodenum which were treated by Bicap. Colonoscopy was attempted on 01/10 Prep was poor. Subsequently patient had capsule endoscopy. Results pending History of A.fib ablation done 2016 Patient found to have A.flutter during his last hospitalization in [facility]. He was started on Eliqis CAD status post PCI in august 2017, GERALD on aspirin and plavix History of CHF EF 30% Patient this time admitted following syncopal episode was found to have bradycardia Patient gave history of dark stool Stool for guiac negative On examination abdomen soft no tenderness On clear liquid diet Status post 1 unit P RBC Followup hb if HCT stable consider restarting Eliqis Followup hemoglobin closely If HCT drops consider push enteroscopy and colonoscopy before continuing Eliqis 01/29/18 20:13
--- NOTE | 2018-01-29 10:18 | CON ---
DATE: 01/29/2018 REASON FOR CONSULTATION: Syncope, coronary artery disease, coronary stents. HISTORY OF PRESENT ILLNESS: This is an 87-year-old man admitted through the emergency room yesterday when he passed out at home. This was associated with bradycardia and hypotension. He is brought to the emergency room, given atropine and IV fluids. This morning, he is in the CCU, sitting on the side of his bed without complaints. No chest pain or shortness of breath. No orthopnea, PND, fever, chills, cough, sputum production, hemoptysis. There is no abdominal pain. He does note dark stool and he is anemic. He is on iron, however. PAST MEDICAL HISTORY: He is a limited historian. Apparently, he has coronary artery disease and has undergone 2 stents at [facility] since August. I do not have the details. He has been followed by [facility] occupational health coordinator. There is a history of Afib. He is on Eliquis. There was a history of congestive heart failure, but no details. There was an old stroke on his CT scan. He is anemic. There was no history of myocardial infarction, rheumatic fever, diabetes or gout. MEDICATIONS: At the time of admission included Eliquis, Lipitor, Plavix, iron, folic acid, Lasix and multivitamin, Protonix, aspirin. SOCIAL HISTORY: He lives at home with his . He is ambulatory, but limited. He does not smoke cigarettes. He does not drink alcohol. FAMILY HISTORY: Not contributory. REVIEW OF SYSTEMS: A 10-point review of systems limited by his poor history, but otherwise unremarkable except as noted above. PHYSICAL EXAMINATION: GENERAL: He is a well-developed elderly man sitting on his bed in the unit, in no acute distress. VITAL SIGNS: Notable for heart rate in the 60s to 70s, sinus rhythm with APCs, blood pressure 114/58. He is afebrile, respirations 13-17, O2 sat 98-100% on nasal cannula. HEENT: Reveals no neck vein distention, thyromegaly, carotid bruits. Mucous membranes moist. Conjunctiva pink. NECK: Supple. LUNGS: Lungs reyes clear. HEART: Revealed normal first and second heart sounds. ABDOMEN: Soft. Bowel sounds present. No mass, organomegaly, tenderness, rebound, guarding. EXTREMITIES: Reveals no cyanosis, clubbing. There is a mild lower extremity edema. NEUROLOGICALLY: He is awake, alert, oriented. PSYCHIATRIC: Normal as to mood and affect. SKIN: Warm and dry. No rash or cellulitis. LABORATORY AND IMAGING: His EKG demonstrates regular sinus rhythm with APCs. There is left axis deviation, anterior septal myocardial infarction, ST-T wave changes about the same as a prior EKG, but worsening repolarization abnormalities noted. The chest x-ray revealed small bilateral pleural effusion, questionable opacity at medial right lung base, cannot exclude pneumonia. See full report. CT scan of the head is noted. No evidence of acute infarct, no intracranial hemorrhage, no intracranial mass. Old left cerebellar infarct. See full report. White count 4200, hemoglobin 9.7, hematocrit 32.5, platelet count 140,000. PT 16.6, INR 1.43, PTT 26.6. Blood gases noted. Electrolytes normal. BUN 48, creatinine 2.4, magnesium 2.2. LFTs unremarkable. Troponin 0.17, 0.17, 0.15. BNP 36,600. Amylase, lipase normal. Stool for occult blood is negative. IMPRESSION: Sean Pillai is an 87-year-old man with known coronary artery disease, recent coronary stents in [facility], details not available, who presents with a syncopal episode at home associated with hypotension and bradycardia, responding to IV fluids and atropine. He is asymptomatic this morning. He is anemic and received a unit of blood. Stool was negative, but he reports dark stools in the setting of iron therapy. We should obtain records from [facility] regarding his coronary stents. The troponin elevations which are mild may be due to renal dysfunction rather than acute myocardial infarction. He did not experience chest pain. His EKG does however show some ST changes compared to a prior EKG. He is having GI evaluation. We will monitor H&H and stool for occult blood. He has been cultured. Eliquis, aspirin and Plavix have been held. He got a dose of Lasix and Protonix. I will order an echocardiogram. I will check his EKG today. He can be out of bed to chair. We should resume aspirin and Plavix as soon as he is cleared by GI, the same for Eliquis. He is currently in sinus rhythm. I will follow along with you. I will make additional recommendations based on his clinical course and DNR/DNI status is noted. Virgil Ellis MD [facility]
--- NOTE | 2018-01-29 13:49 | PN ---
DATE: 01/29/2018 SUBJECTIVE: The patient is an 87-year-old male who was admitted to [facility] after suffering a syncopal episode at home. The patient cannot state where in his home or what he was doing at the time that he passed out, but apparently when the EMS arrived, the patient was awake and alert. He was hypotensive and bradycardic, however, as per EMS. He was given saline and atropine in the field. PAST MEDICAL HISTORY: The patient is known to have a past medical history positive for atrial fibrillation. He underwent coronary catheterization 3 weeks earlier. He had been taking iron pills for borderline anemia in the past. SOCIAL HISTORY: He is a former smoker. He is . 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 He is a nonalcoholic drinker. ALLERGIES: HE IS KNOWN TO BE ALLERGIC TO PENICILLIN WHICH CAUSES RASH IN THE PAST. PHYSICAL EXAMINATION: GENERAL: When seen today in the Intensive Care Unit, the patient was sitting up in a chair. He is awake, alert and oriented. He does not recall the time frame around his syncopal episode at home. HEART: His heart is irregularly irregular. The patient was seen with the incident analyst and it was noted that his heart rate is very extremely variable from the 60s to the 110-120 within a matter of seconds. There are few bibasilar crackles on pulmonary auscultation. ABDOMEN: Soft. He has +2 pedal edema bilaterally. LABORATORY DATA: Morning laboratory studies show his white blood cell count to be 4.2, hemoglobin and hematocrit are 9.8 and 33 and platelet count is 132. On admission, his hemoglobin was 8.9. There was a question of heme-positive stools and therefore the patient was found to have O negative type blood and was transfused 1 unit of packed red blood cells overnight. His serum chemistries show the BUN and creatinine to be elevated at 51 and 2.8, glucose is 118. His troponins have been elevated 3 times, 0.17, 0.17 and 0.15. BNP is elevated at 36,600. ASSESSMENT AND PLAN: The patient is being followed by his cylinder honer, Dr. Ellis. We will discuss the case with Dr. Ellis and continue to follow the patient closely. He is a DNR/DNI status. However, we will be as aggressive as possible with medical treatment for this gentleman. Bryan Antonio MD [facility] # [id number]
--- NOTE | 2018-01-29 14:43 | HP ---
CHIEF COMPLAINT: Fall at home with loss of consciousness. HISTORY OF PRESENT ILLNESS: This is an 87-year-old man who I am meeting for the first time, the patient of Dr. Samir Antonio, who presented to the Emergency by squad with the above symptoms. When squad arrived, he was profoundly bradycardic and given an ampule of atropine. In the ER, he was also found to be anemic and they reported heme positive stools today. The patient was on aspirin, Plavix, and Eliquis. His EKG was abnormal, showing lateral wall ischemic changes. His troponin was elevated. BUN and creatinine were elevated and so the product test engineer was called to evaluate for ICU admission. The patient was admitted to ICU and I came to see him this Monday night. PAST MEDICAL HISTORY: Significant for appendectomy and varicose vein surgery in the distant past. He went into atrial fibrillation in 02/2017 and was found to have low ejection fraction. He had stents placed at the time of PTCA 08/2017. On 01/05/2018, only 3 weeks ago, he was admitted to [facility] with severe anemia. He was transfused two units of packed red cells. 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 [place] [facility] [place] and came home only 2 or 3 days ago. Family was not able to confirm a history of chronic renal insufficiency. 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 SOCIAL HISTORY: There is positive history of tobacco use for many years as well as alcohol, but he no longer smokes or drinks. ALLERGIES: HE IS ALLERGIC TO PENICILLIN, WHICH CAUSES HIVES. REVIEW OF SYSTEMS: Difficult to obtain because of the patient's status and critical illness in Intensive Care. PHYSICAL EXAMINATION: GENERAL: The patient was seen this Monday late evening in Intensive Care Unit, room CCU, bed 7. I spoke to his daughter by telephone to confirm history and the events leading up to his admission. The patient was actually quite talkative and rather good historian. HEAD AND NECK: Unremarkable. Conjunctivae are a bit pale. Neck is supple without masses. Thyroid is nonpalpable. There are no palpable nodes. LUNGS: Show decreased breath sounds and COPD with rales posteriorly and half way up. HEART: Regular with murmurs present. CHEST: There was increased AP diameter. ABDOMEN: Soft and nontender. EXTREMITIES: +3 pitting edema on the lower extremities and dependent skin in the low back and buttock area. IMPRESSION: 1. Syncope at home with severe bradyarrhythmia. 2. Known coronary artery disease with ischemic changes on electrocardiogram and elevated troponin. 3. Multi-point anticoagulation; on aspirin, Plavix, and Eliquis. 4. Heme positive stools reported in the emergency room, but now reportedly Heme negative in the Intensive Care Unit. 5. A 2 gram drop in hemoglobin from most recent labs reportedly at [facility] one month ago. 6. Melena, dark stools. Patient has been on iron for many months, but reports melena to have developed only in the last three days making me more suspicious for gastrointestinal bleed. 7. 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 8. Colonoscopy reportedly was attempted in the last hospitalization, but could not be completed due to inadequate preparation. 9. Renal insufficiency with elevated BUN and creatinine uncertain as to the chronic nature of this versus acute. PLAN: The patient was admitted to Intensive Care. Case was discussed at length with Dr. Parrish who recommended transfusion of 1 unit packed red cells because of his anticoagulated state and Heme positive stools. I would tend to agree, but I am also concerned about the generalized anasarca with +3 pitting edema of the lower extremities and the buttocks. Therefore, we will give dose of Zaroxolyn as the patient has been on this at home as well as IV Lasix and slowly transfuse. This will also help with oncotic pressure and generalized edema. Cardiology consultation with Dr. Ellis and Dr. Yañez also called. I spoke with patient's daughter at length reviewing multiple problems he faced, I confirmed with her, the notes that a living will is in place and DNR/DNI is in effect. Therefore, those orders were written to imcluding resuscitation and intubation. We will follow with Cardiology and GI. We will hold any anticoagulants at this time and follow serial H and H. Cheo Atnonio MD [facility]
[2018-01-29 14:52] LABS: BASO # 0.01 K/mm3 (0.0-2.0); BASO % 0.2 % (0.0-3.0); EOS % 0.4 % (1.5-5.0); GRAN # 2.74 (1.4-6.5); GRAN % 58.6 % (50.0-68.0); HEMOGLOBIN 9.8 g/dL (14.0-18.0); LYMPH # 1.5 (1.2-3.4); LYMPH % 31.6 % (22.0-35.0); MEAN CELL VOLUME 89.3 fl (80.0-105.0); MEAN CORPUSCULAR HEMOGLOBIN 26.8 pg (25.0-35.0); MEAN CORPUSCULAR HGB CONC 30.1 g/dl (31.0-37.0); MEAN PLATELET VOLUME 10.6 fl (7.0-11.0); MONO # 0.4 (0.1-0.6); MONO % 9.2 % (1.0-6.0); RBC 3.65 10^6/uL (3.5-6.1); RED CELL DISTRIBUTION WIDTH 21.1 % (11.5-14.5); WHITE BLOOD COUNT 4.7 10^3/ul (4.5-11.0)
[2018-01-29 14:55] LABS: IRON 42 ug/dL (45-180)
[2018-01-29 15:04] LABS: % IRON SATURATION 13 % (20-55); TOTAL IRON BINDING CAPACITY 318 ug/dL (261-462)
--- NOTE | 2018-01-29 19:58 | CARD ---
APPROVED REPORT Date of service: 01/28/2018 EKG Measurement Heart [id number] <Conclusion> Sinus rhythm with premature atrial complexes Left axis deviation Low voltage QRS Inferior infarct, age undetermined T wave abnormality, consider lateral ischemia Prolonged QT Abnormal ECG
[2018-01-29 20:23] LABS: BASO # 0.02 K/mm3 (0.0-2.0); BASO % 0.4 % (0.0-3.0); EOS % 0.7 % (1.5-5.0); GRAN # 3.35 (1.4-6.5); GRAN % 59.6 % (50.0-68.0); HEMOGLOBIN 9.3 g/dL (14.0-18.0); LYMPH # 1.6 (1.2-3.4); LYMPH % 29.2 % (22.0-35.0); MEAN CELL VOLUME 89.2 fl (80.0-105.0); MEAN CORPUSCULAR HGB CONC 30.3 g/dl (31.0-37.0); MEAN PLATELET VOLUME 10.3 fl (7.0-11.0); MONO # 0.6 (0.1-0.6); MONO % 10.1 % (1.0-6.0); RBC 3.44 10^6/uL (3.5-6.1); RED CELL DISTRIBUTION WIDTH 21.3 % (11.5-14.5); WHITE BLOOD COUNT 5.6 10^3/ul (4.5-11.0)
[2018-01-29] MEDS: Albuterol-Ipratrop 3 mg / 0.5 (3 ml) UD IH PRN (23:35)
[2018-01-30 07:37] LABS: BASO # 0.01 K/mm3 (0.0-2.0); BASO % 0.3 % (0.0-3.0); EOS % 0.3 % (1.5-5.0); GRAN # 2.59 (1.4-6.5); LYMPH % 25.9 % (22.0-35.0); MEAN CELL VOLUME 90.4 fl (80.0-105.0); MEAN CORPUSCULAR HEMOGLOBIN 26.6 pg (25.0-35.0); MEAN CORPUSCULAR HGB CONC 29.4 g/dl (31.0-37.0); MEAN PLATELET VOLUME 10.3 fl (7.0-11.0); MONO # 0.3 (0.1-0.6); MONO % 8.5 % (1.0-6.0); RBC 3.76 10^6/uL (3.5-6.1); RED CELL DISTRIBUTION WIDTH 21.2 % (11.5-14.5)
[2018-01-30 08:01] LABS: ALBUMIN 3.2 g/dL (3.0-4.8)
--- NOTE | 2018-01-30 08:23 | CARD ---
APPROVED REPORT Date of service: 01/29/2018 EXAM: Two-dimensional and M-mode echocardiogram with Doppler and color Doppler. Other Information Quality : AverageRhythm : INDICATION Syncope FERNANDEZ, CAD, PCIs 2D DIMENSIONS Left Atrium (2D)4.5 (1.6-4.0cm)IVSd1.1 (0.7-1.1cm) LVDd5.8 (3.9-5.9cm)PWd1.1 (0.7-1.1cm) LVDs5.2 (2.5-4.0cm)FS (%) 11.3 % LVEF (%)24.0 (>50%) M-Mode DIMENSIONS Aortic Root4.30 (2.2-3.7cm)Aortic Cusp Exc.2.00 (1.5-2.0cm) Aortic Valve AoV Peak Yoefpjyd60.7cm/Rufino Peak GR.4mmHgAI P 1/2 [id number] Mitral Valve MV E Ueqaduwy76.1cm/sMV A Dglabsbv60.6cm/sE/A ratio2.1 TDI E/Lateral E'0.0E/Medial E'0.0 Pulmonary Valve PV Peak Rasryugk24.9cm/sPV Peak Grad.1mmHg Tricuspid Valve TR Peak Soqdyiyh129kg/sRAP DIFHIJPB46pxPuDE Peak Gr.58mmHg [id number] LEFT VENTRICLE The left ventricle is normal size. There is normal left ventricular wall thickness. Left ventricle systolic function is severely impaired. The Ejection Fraction is 20-25%. There is severe global hypokinesis. The apex is akinetic. AORTIC VALVE The aortic valve is moderately calcified. There is mild aortic regurgitation. MITRAL VALVE The mitral valve is normal in structure. Mitral regurgitation is moderate. TRICUSPID VALVE The tricuspid valve is normal in structure. There is moderate to severe tricuspid regurgitation. There is severe pulmonary hypertension. PULMONIC VALVE There is mild pulmonic valvular regurgitation. GREAT VESSELS The aortic root is normal in size. PERICARDIAL EFFUSION There is no pericardial effusion. <Conclusion> The left ventricle is normal size. There is normal left ventricular wall thickness. Left ventricle systolic function is severely impaired. The Ejection Fraction is 20-25%. There is severe global hypokinesis. The apex is akinetic. The aortic valve is moderately calcified. Aortic sclerosis. There is mild aortic regurgitation. Mitral regurgitation is moderate. There is moderate to severe tricuspid regurgitation. There is severe pulmonary hypertension.
[2018-01-30 13:51] LABS: BASO # 0.02 K/mm3 (0.0-2.0); BASO % 0.5 % (0.0-3.0); EOS % 0.2 % (1.5-5.0); GRAN # 2.9 (1.4-6.5); GRAN % 66.2 % (50.0-68.0); HEMOGLOBIN 9.6 g/dL (14.0-18.0); LYMPH % 23.7 % (22.0-35.0); MEAN CELL VOLUME 90.2 fl (80.0-105.0); MEAN CORPUSCULAR HGB CONC 29.9 g/dl (31.0-37.0); MEAN PLATELET VOLUME 10.1 fl (7.0-11.0); MONO # 0.4 (0.1-0.6); MONO % 9.4 % (1.0-6.0); RBC 3.56 10^6/uL (3.5-6.1); RED CELL DISTRIBUTION WIDTH 21.1 % (11.5-14.5); WHITE BLOOD COUNT 4.4 10^3/ul (4.5-11.0)
--- NOTE | 2018-01-30 14:11 | CP.PCM.PN ---
<Carlos Rawls - Last Filed: 01/30/18 17:43> Subjective - Date & Time of Evaluation Date of Evaluation: 01/30/18 Time of Evaluation: 14:03 - Subjective Subjective: Patient is eating breakfast this AM. Tolerating well. No complaints. He denies any bleeding. Objective - Vital Signs/Intake and Output Vital Signs (last 24 hours): Temp Pulse Resp BP Pulse Ox 97.9 F 77 20 100/49 L 99 01/30/18 12:00 01/30/18 12:00 01/30/18 12:00 01/30/18 12:00 01/30/18 06:00 - Medications Medications: Current Medications Albuterol/Ipratropium (Duoneb 3 Mg/0.5 Mg (3 Ml) Ud) 3 ml IH [id number] PRN PRN Reason: Shortness of Breath Last Admin: 01/29/18 23:35 Dose: 3 ml Calcium Carbonate (Caltrate) 600 mg PO DAILY [facility] Last Admin: 01/30/18 10:00 Dose: 600 mg Furosemide (Lasix) 40 mg PO DAILY [facility] Last Admin: 01/30/18 10:00 Dose: 40 mg Pantoprazole Sodium (Protonix Inj) 40 mg IVP Q12 [facility] Last Admin: 01/30/18 10:00 Dose: 40 mg - Labs Labs: 01/30/18 13:40 01/30/18 07:28 PT 16.6 SECONDS (9.4-12.5) H 01/29/18 05:30 INR 1.43 01/29/18 05:30 APTT 26.6 Seconds (25.1-36.5) 01/29/18 05:30 - Constitutional Appears: Non-toxic, No Acute Distress - Head Exam Head Exam: NORMAL INSPECTION - Eye Exam Eye Exam: Normal appearance - ENT Exam ENT Exam: Mucous Membranes Moist - Respiratory Exam Respiratory Exam: Clear to Ausculation Bilateral, NORMAL BREATHING PATTERN - Cardiovascular Exam Cardiovascular Exam: REGULAR RHYTHM, +S1, +S2 - GI/Abdominal Exam GI & Abdominal Exam: Soft, Normal Bowel Sounds - Extremities Exam Extremities Exam: Normal Inspection - Neurological Exam Neurological Exam: Alert, Awake, Oriented x3 - Psychiatric Exam Psychiatric exam: Normal Affect, Normal Mood - Skin Skin Exam: Dry, Normal Color Assessment and Plan - Assessment and Plan (Free Text) Assessment: 87 year old male with past medical history of systolic CHF with last known EF of 30%, atrial fibrillation on eliquis, CAD with recent cardiac cath s/p GERALD in 08/2017, diverticulosis and duodenal AVM who presented to [facility] with complaints of syncopal episode and bradycardia. GI team is consulted for suspected GI bleed. Patient is s/p 1 unit pRBC with correlated elevation of hgb. Patient is currently being monitored in ICU. #Suspected GI bleed #CAD s/p stents 12/2017 #Anemia #Syncope #Bradycardia #Hx of duodenal AVM #Hx of Diverticulosis #Systolic CHF #Afib on AC PLAN -I discussed case with Dr. Durán. S/P duodenal AVM ablation by Dr. Durán ~3 weeks ago and plan for follow up with him as an outpt for colonoscopy. Patient s hould follow up with Dr. Durán when discharged. -H/H stable, No major GI bleeding -No plan for endoscopy procedure at this time -Maintain MAP >65mmHg -Goal Hgb >8 considering cardiac patient -Follow cardiac recommendations <Sharon Parrish V - Last Filed: 01/30/18 22:34> Objective - Vital Signs/Intake and Output Vital Signs (last 24 hours): Temp Pulse Resp BP Pulse Ox 98.5 F 85 20 118/77 99 01/30/18 18:00 01/30/18 18:00 01/30/18 18:00 01/30/18 18:00 01/30/18 06:00 Intake and Output: 01/30/18 01/31/18 18:59 06:59 Intake Total 1200 Balance 1200 - Medications Medications: Current Medications Albuterol/Ipratropium (Duoneb 3 Mg/0.5 Mg (3 Ml) Ud) 3 ml IH [id number] PRN PRN Reason: Shortness of Breath Last Admin: 01/30/18 20:11 Dose: 3 ml Calcium Carbonate (Caltrate) 600 mg PO DAILY [facility] Last Admin: 01/30/18 10:00 Dose: 600 mg Furosemide (Lasix) 40 mg PO DAILY [facility] Last Admin: 01/30/18 10:00 Dose: 40 mg Pantoprazole Sodium (Protonix Inj) 40 mg IVP Q12 [facility] Last Admin: 01/30/18 21:06 Dose: 40 mg - Labs Labs: 01/30/18 13:40 01/30/18 07:28 PT 16.6 SECONDS (9.4-12.5) H 01/29/18 05:30 INR 1.43 01/29/18 05:30 APTT 26.6 Seconds (25.1-36.5) 01/29/18 05:30 Attending/Attestation - Attestation I have personally seen and examined this patient.: Yes I have fully participated in the care of the patient.: Yes I have reviewed all pertinent clinical information, including history, physical exam and plan: Yes Notes (Text): This is an addendum to GI progress report dictated by the GI Fellow.The patient was seen and examined earlier. Medical records, lab studies, imagings were reviewed. Last 24 hours events reviewed. Agreed with the above treatment plan as outlined in GI Fellow 's notes with the addition of the following This patient with history of A.flutter coronary artery disease On Eliquis, history of GI bleedding Status post bicap of duodenal AVM Admitted with syncopal episode Suspected GI bleeding HCT stable No GI intervention planned now unless there is an active bleeding Patient needs GI followup with Dr. Durán as an outpatient 01/30/18 22:21
--- NOTE | 2018-01-30 16:20 | CP.PCM.CON ---
History of Present Illness - History of Present Illness History of Present Illness: Palliative consult requested by Dr Joycelyn Antonio Reason: Advance care planning 87 year old male with history A Fib, CAD s/p stent who was brought in via EMS on 01/28/18 after suffering an episode of syncope at home. EMS found him to be b radycardic. Also found to be anemic, patient reports dark stool taking Iron supplement, stool was guaiac negative. Family reported he was recently discharged from [facility] rehab. Prior to that he was treated at [facility] for severe anemia. . Chest X ray showed small bilateral pleural effusions, questionable opacity in LLL, follow up advised. 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 Troponin's 0.17,0.17, 0.15. PT 17.9, INR 1.56, APT 26.3. EKG: SR with PAC's, left axis deviation, inferior infarct age undetermined, T wave abnormality, prolonged QT. Echo 01/29: LV function severely impaired EF 20-25%, severe global hypokinesis, aortic valve moderately calcified, aortic sclerosis, moderate mitral regurgitation, mod/severe tricuspid regurgitation, severe pulmonary hypertension. 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 Social History: Tobacco and alcohol use of many years, no longer drinks, sm okes,denies drug use. Lives with his who has profound dementia. 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 Family History: Non contributory. Advance care planning: Patient has an advanced directive, he is DNR/DNI, Patient's son Solitario Pillai is POA, a copy is in the chart. Review of Systems: He complains of dyspnea and weakness, denies nausea,vomiting,fever,chills, chest/abdominal pain, headaches, dizziness, urinary symptoms, numbness/ tingling of extremities Past Patient History - Past Social History Smoking Status: Former Smoker Alcohol: None Drugs: Denies - CARDIAC Hx Congestive Heart Failure: Yes Hx Hypertension: Yes - NEUROLOGICAL Hx Paralysis: No - HEMATOLOGICAL/ONCOLOGICAL Hx Blood Transfusions: No Hx Blood Transfusion Reaction: No - MUSCULOSKELETAL/RHEUMATOLOGICAL Hx Falls: Yes - PSYCHIATRIC Hx Emotional Abuse: No Hx Physical Abuse: No - SURGICAL HISTORY Hx Surgeries: Yes - ANESTHESIA Hx Anesthesia Reactions: No Hx Malignant Hyperthermia: No Meds Allergies/Adverse Reactions: Allergies Allergy/AdvReac Type Severity Reaction Status Date / Time Penicillins Allergy RASH Verified 01/28/18 13:39 - Medications Medications: Current Medications Albuterol/Ipratropium (Duoneb 3 Mg/0.5 Mg (3 Ml) Ud) 3 ml IH [id number] PRN PRN Reason: Shortness of Breath Last Admin: 01/29/18 23:35 Dose: 3 ml Calcium Carbonate (Caltrate) 600 mg PO DAILY [facility] Last Admin: 01/30/18 10:00 Dose: 600 mg Furosemide (Lasix) 40 mg PO DAILY [facility] Last Admin: 01/30/18 10:00 Dose: 40 mg Pantoprazole Sodium (Protonix Inj) 40 mg IVP Q12 [facility] Last Admin: 01/30/18 10:00 Dose: 40 mg Physical Exam - Constitutional Appears: No Acute Distress, Chronically Ill - Head Exam Head Exam: NORMOCEPHALIC - Eye Exam Eye Exam: Normal appearance, PERRL - ENT Exam ENT Exam: Mucous Membranes Moist, Normal Exam - Neck Exam Neck exam: Positive for: Normal Inspection - Respiratory Exam Respiratory Exam: Decreased Breath Sounds Additional comments: dyspnea on exertion - Cardiovascular Exam Cardiovascular Exam: REGULAR RHYTHM, +S1, +S2 - GI/Abdominal Exam GI & Abdominal Exam: Normal Bowel Sounds, Soft Additional comments: no tenderness or guarding - Extremities Exam Extremities exam: Positive for: normal inspection, pedal pulses present - Back Exam Back exam: NORMAL INSPECTION - Neurological Exam Neurological exam: Alert, Oriented x3 - Skin Skin Exam: Dry, Pallor, Warm - Additional Findings Additional findings: Palliative performance scale rating 40% Results - Vital Signs Recent Vital Signs: Last Vital Signs Temp 97.9 F 01/30/18 12:00 Pulse 81 01/30/18 14:00 Resp 20 01/30/18 12:00 BP 100/49 L 01/30/18 12:00 Pulse Ox 99 01/30/18 06:00 - Labs Result Diagrams: 01/30/18 13:40 01/30/18 07:28 Labs: Laboratory Results - last 24 hr 01/29/18 01/29/18 01/30/18 05:30 20:13 07:28 WBC 5.6 RBC 3.44 L Hgb 9.3 L Hct 30.7 L MCV 89.2 MCH 27.0 MCHC 30.3 L RDW 21.3 H Plt Count 132 MPV 10.3 Gran % 59.6 Lymph % (Auto) 29.2 [place] % (Auto) 10.1 H Eos % (Auto) 0.7 L Baso % (Auto) 0.4 Gran # 3.35 Lymph # (Auto) 1.6 [place] # (Auto) 0.6 Eos # (Auto) 0.0 Baso # (Auto) 0.02 Sodium 139 Potassium 4.0 Chloride 101 Carbon Dioxide 27 Anion Gap 15 BUN 57 H Creatinine 3.0 H Est GFR ( Amer) 24 Est GFR (Non-Af Amer) 20 Random Glucose 143 H Calcium 8.0 L Phosphorus 6.2 H Magnesium 2.0 Ferritin 36.6 Total Bilirubin 0.8 AST 32 ALT 24 Alkaline Phosphatase 77 Total Protein 6.5 Albumin 3.2 Globulin 3.3 Albumin/Globulin Ratio 1.0 L 01/30/18 01/30/18 07:28 13:40 WBC 4.0 L D 4.4 L RBC 3.76 3.56 Hgb 10.0 L 9.6 L Hct 34.0 L 32.1 L MCV 90.4 90.2 MCH 26.6 27.0 MCHC 29.4 L 29.9 L RDW 21.2 H 21.1 H Plt Count 127 118 L MPV 10.3 10.1 Gran % 65.0 66.2 Lymph % (Auto) 25.9 23.7 [place] % (Auto) 8.5 H 9.4 H Eos % (Auto) 0.3 L 0.2 L Baso % (Auto) 0.3 0.5 Gran # 2.59 2.90 Lymph # (Auto) 1.0 L 1.0 L [place] # (Auto) 0.3 0.4 Eos # (Auto) 0.0 0.0 Baso # (Auto) 0.01 0.02 Sodium Potassium Chloride Carbon Dioxide Anion Gap BUN Creatinine Est GFR ( Amer) Est GFR (Non-Af Amer) Random Glucose Calcium Phosphorus Magnesium Ferritin Total Bilirubin AST ALT Alkaline Phosphatase Total Protein Albumin Globulin Albumin/Globulin Ratio Assessment & Plan - Assessment and Plan (Free Text) Assessment: Mr Pillai is an 87 year old male with history of A Fib on Elequis, CAD s/p stents,duodenal AVM anemia, who was admitted after episode of syncope, found to be anemic and bradycardic. Echo showed severe LV dysfunction EF 20-25%, mitral/tricuspid regurgitation, severe pulmonary hypertension The patient is of pleasant demeanor,alert and oriented. Noted to have mild dyspena on exertion. Denies any other omplaints at this time. States he doesn't understand how he "ended up like this", thought he was doing better. States he j ust got home form rehab . We specifically discussed the terms of his Advanced Directive. The patient is clear that he doesn't want to be intubated or have CPR. POLST directive explained, questions answered. I offered to completed POLST directive with him. The patient intends to speak with his son Solitario Andrew who is his health care surrogate before completing POLSt directive. Time spent with patient in goals of care and advance care planning discussion, 30 minutes Plan: GI following for possible GI bleed, colonoscopy recommended as an out patient Cardiology following Goals of care and advance care planning
[2018-01-30] MEDS: Albuterol-Ipratrop 3 mg / 0.5 (3 ml) UD IH PRN (20:11)
[2018-01-31 06:25] LABS: BASO # 0.01 K/mm3 (0.0-2.0); BASO % 0.2 % (0.0-3.0); EOS # 0.1 (0.0-0.7); GRAN # 3.49 (1.4-6.5); HEMOGLOBIN 9.7 g/dL (14.0-18.0); LYMPH # 1.1 (1.2-3.4); LYMPH % 20.3 % (22.0-35.0); MEAN CELL VOLUME 89.3 fl (80.0-105.0); MEAN CORPUSCULAR HEMOGLOBIN 26.6 pg (25.0-35.0); MEAN CORPUSCULAR HGB CONC 29.8 g/dl (31.0-37.0); MEAN PLATELET VOLUME 11.4 fl (7.0-11.0); MONO # 0.6 (0.1-0.6); MONO % 11.5 % (1.0-6.0); RBC 3.64 10^6/uL (3.5-6.1); RED CELL DISTRIBUTION WIDTH 20.8 % (11.5-14.5); WHITE BLOOD COUNT 5.2 10^3/ul (4.5-11.0)
[2018-01-31 06:45] LABS: ALB/GLOB RATIO 0.9 (1.1-1.8); ALBUMIN 3.2 g/dL (3.0-4.8); CALCIUM 8.1 mg/dL (8.4-10.5)
--- NOTE | 2018-01-31 10:52 | CP.PCM.PN ---
<Debra Curran - Last Filed: 01/31/18 10:51> Subjective - Date & Time of Evaluation Date of Evaluation: 01/31/18 Time of Evaluation: 09:55 - Subjective Subjective: Seen and examined at bedside, chart reviewed. No acute overnight events reported. No BM x2 days, usually eat prunes. No SOB, CP N/V or abdominal pain. Tolerating oral intake. Denies overt GI bleeding. Objective - Vital Signs/Intake and Output Vital Signs (last 24 hours): Temp Pulse Resp BP Pulse Ox 98.4 F 70 20 109/66 95 01/31/18 06:00 01/31/18 06:00 01/31/18 06:00 01/31/18 10:14 01/31/18 06:00 Intake and Output: 01/31/18 01/31/18 06:59 18:59 Intake Total 1100 Output Total 1600 Balance -500 - Medications Medications: Current Medications Albuterol/Ipratropium (Duoneb 3 Mg/0.5 Mg (3 Ml) Ud) 3 ml IH [id number] PRN PRN Reason: Shortness of Breath Last Admin: 01/30/18 20:11 Dose: 3 ml Calcium Carbonate (Caltrate) 600 mg PO DAILY [facility] Last Admin: 01/31/18 10:14 Dose: 600 mg Furosemide (Lasix) 40 mg PO DAILY [facility] Last Admin: 01/31/18 10:14 Dose: 40 mg Pantoprazole Sodium (Protonix Inj) 40 mg IVP Q12 [facility] Last Admin: 01/31/18 10:14 Dose: 40 mg - Labs Labs: 01/31/18 06:00 01/31/18 06:00 PT 16.6 SECONDS (9.4-12.5) H 01/29/18 05:30 INR 1.43 01/29/18 05:30 APTT 26.6 Seconds (25.1-36.5) 01/29/18 05:30 - Constitutional Appears: No Acute Distress - Head Exam Head Exam: NORMOCEPHALIC - Eye Exam Eye Exam: Normal appearance. absent: Scleral icterus - ENT Exam ENT Exam: Mucous Membranes Moist - Neck Exam Neck Exam: Normal Inspection - Respiratory Exam Respiratory Exam: NORMAL BREATHING PATTERN. absent: Respiratory Distress - Cardiovascular Exam Cardiovascular Exam: +S1, +S2 - GI/Abdominal Exam GI & Abdominal Exam: Soft, Normal Bowel Sounds. absent: Guarding, Tenderness, Organomegaly, Rebound - Extremities Exam Extremities Exam: Pedal Edema. absent: Calf Tenderness - Neurological Exam Neurological Exam: Alert, Awake, Oriented x3 Assessment and Plan - Assessment and Plan (Free Text) Assessment: ASSESSMENT: GI bleed Anemia, s/p blood transfusion Constipation CAD s/p stents 12/2017 Syncope Bradycardia Hx of duodenal AVM Hx of Diverticulosis Systolic CHF Afib on AC PLAN: -monitor H/H, it is stable, No major GI bleeding -No plan for endoscopy procedure at this time -give prunes/prune juice w/ meals, if no result start Miralax -continue PPI -as per cardiology GI Team discussed case with Dr. Durán. S/P duodenal AVM ablation by Dr. Durán ~3 weeks ago and plan for follow up with him as an outpt for colonoscopy. Patient should follow up with Dr. Durán when discharged. Seen and discussed w/ Dr. Parrish. <Sharon Parrish V - Last Filed: 01/31/18 22:11> Objective - Vital Signs/Intake and Output Vital Signs (last 24 hours): Temp Pulse Resp BP Pulse Ox 98.8 F 91 H 20 120/67 95 01/31/18 18:00 01/31/18 18:00 01/31/18 18:00 01/31/18 18:00 01/31/18 06:00 - Medications Medications: Current Medications Albuterol/Ipratropium (Duoneb 3 Mg/0.5 Mg (3 Ml) Ud) 3 ml IH [id number] PRN PRN Reason: Shortness of Breath Last Admin: 01/30/18 20:11 Dose: 3 ml Calcium Carbonate (Caltrate) 600 mg PO DAILY [facility] Last Admin: 01/31/18 10:14 Dose: 600 mg Furosemide (Lasix) 40 mg PO DAILY [facility] Last Admin: 01/31/18 10:14 Dose: 40 mg Pantoprazole Sodium (Protonix Inj) 40 mg IVP Q12 [facility] Last Admin: 01/31/18 10:14 Dose: 40 mg Potassium Chloride (Potassium Chloride Oral Soln) 20 meq PO DAILY [facility] Last Admin: 01/31/18 13:49 Dose: 20 meq - Labs Labs: 01/31/18 06:00 01/31/18 06:00 PT 16.6 SECONDS (9.4-12.5) H 01/29/18 05:30 INR 1.43 01/29/18 05:30 APTT 26.6 Seconds (25.1-36.5) 01/29/18 05:30 Attending/Attestation - Attestation I have personally seen and examined this patient.: Yes I have fully participated in the care of the patient.: Yes I have reviewed all pertinent clinical information, including history, physical exam and plan: Yes Notes (Text): This is an addendum to GI progress report dictated by Debra Curran APN.The patient was seen and examined earlier. Medical records, lab studies, imagings were reviewed. Last 24 hours events reviewed. Agreed with the above treatment plan as outlined in Debra Curran APN's notes with the addition of the following No episode of bleeding per rectum or ludwin On examination abdomen soft non-tender Patient is on plavix and eliquis History of A.flutter and CAD Followup hb 01/31/18 22:08
--- NOTE | 2018-01-31 11:46 | PN ---
DATE: 01/31/2018 SUBJECTIVE: The patient is an 87-year-old male who was admitted to the [facility] on 01/28/2018 after suffering a syncopal episode. He was also found to have elevated troponin levels in the emergency room suggestive of a non-ST segment elevation myocardial infarction. The patient cannot recall any events surrounding his syncopal episode. In the emergency room, he was found to be quite hypotensive and bradycardic, however. The patient is known to have a past medical history positive for atrial fibrillation status post coronary catheterization 3 weeks prior to admission. When seen today, the patient is sitting up in a chair. He is awake, alert and oriented. PHYSICAL EXAMINATION: VITAL SIGNS: He is afebrile. Blood pressure is 112/78, heart rate is 70. LUNGS: Clear. HEART: Regular. ABDOMEN: Soft and nontender. EXTREMITIES: Free of cyanosis, clubbing or edema. LABORATORY DATA: Today, blood cultures and urine cultures have been negative. This morning's laboratory shows a white blood cell count of 5.2, hemoglobin and hematocrit are 9.7 and 32.5, platelet count is 120. Sodium is 137, potassium 3.3, blood urea nitrogen is 56, creatinine is 3 and glucose is 129. So an 87-year-old gentleman admitted with syncope and a possible NSTEMI is doing well. He hemodynamically is stable. His EKG continues to show regular sinus rhythm with a wandering atrial pacemaker. The patient underwent echocardiography, which shows normal left ventricular size, severely depressed ejection fraction of 20-25% with global hypokinesis. The apex was akinetic. The aortic valve is moderately calcified. There is moderate mitral regurgitation, [id number] tricuspid regurgitation and severe pulmonary hypertension. The patient as per his and his family's wishes is a DNR/DNI status. We will continue to treat the patient conservatively medically. Case to be discussed with Cardiology. Bryan Antonio MD
[2018-01-31] MEDS: Potassium Chloride 20 mEq/15 ml LIQ UD PO SCH (13:49)
--- NOTE | 2018-01-31 16:16 | PN ---
DATE: 01/31/2018 SUBJECTIVE: The patient is seen sitting in a chair on telemetry. He states he is currently comfortable. He denies any chest pain. He is unaware of any blood in his stool. He remains off anticoagulant and antiplatelet therapy. CURRENT MEDICATIONS: Include calcium supplement, DuoNeb inhaler, Lasix 40 mg daily, Protonix 40 mg b.i.d. and Ativan p.r.n. PHYSICAL EXAMINATION GENERAL: He is a very elderly man who appears comfortable at rest. VITAL SIGNS: His blood pressure is 100/56 with a pulse of 72 and sinus rhythm, respirations are 16, and he is afebrile. HEENT: No JVD. CHEST: A few scattered rhonchi heard. HEART: PMI displaced laterally, systolic murmur in the left sternal border. ABDOMEN: Soft, nontender with normoactive bowel sounds. EXTREMITIES: No edema. DIAGNOSTIC DATA: Potassium is 3.3, BUN and creatinine are 56 and 3. White count 5.2, hemoglobin and hematocrit 9.7 and 32.5 with a platelet count of 120,000. His hemoglobin has remained stable between 9.3 and 10 over the past several days. IMPRESSION: 1. Recent acute anemia, possible gastrointestinal bleeding. 2. History of bradycardia. 3. Apparent paroxysmal atrial fibrillation. 4. Transient hypotension with orthostasis, improved. 5. Coronary artery disease status post prior percutaneous coronary intervention reportedly in August this year at [facility]. 6. Rest of the problems as noted. RECOMMENDATIONS: His current management should continue for now. Once cleared by GI, resumption of antiplatelet therapy should be entertained. From a cardiac standpoint, given his age and other risk factors, and history of paroxysmal atrial fibrillation, resumption of Eliquis therapy would be appropriate as well; however, the risks and benefits of bleeding will need to be weighed in this matter. We will continue to follow and make further recommendations as appropriate. Robin Yañez MD
[2018-01-31] MEDS ORDERED: Potassium Chloride 20 mEq ER Tab PO ONE (19:06)
--- NOTE | 2018-02-01 07:59 | CP.PCM.PN ---
Subjective - Date & Time of Evaluation Date of Evaluation: 01/30/18 Time of Evaluation: 07:00 - Subjective Subjective: Stable on 2R. Confused during the night. No CP or SOB. V/S noted. PE: Lungs: clear Cor.: S1S2 Abd.: soft Ext: + edema Neuro.: alert, confused I/O= 650/875 Labs: H/H 10/34, Cr.= 3.0, Objective - Vital Signs/Intake and Output Vital Signs (last 24 hours): Temp Pulse Resp BP Pulse Ox 98 F 78 20 119/82 99 01/30/18 06:00 01/30/18 06:00 01/30/18 06:00 01/30/18 06:00 01/30/18 06:00 - Medications Medications: Current Medications Albuterol/Ipratropium (Duoneb 3 Mg/0.5 Mg (3 Ml) Ud) 3 ml IH [id number] PRN PRN Reason: Shortness of Breath Last Admin: 01/29/18 23:35 Dose: 3 ml Calcium Carbonate (Caltrate) 600 mg PO DAILY [facility] Last Admin: 01/29/18 10:12 Dose: 600 mg Furosemide (Lasix) 40 mg PO DAILY [facility] Last Admin: 01/29/18 10:11 Dose: 40 mg Pantoprazole Sodium (Protonix Inj) 40 mg IVP Q12 [facility] Last Admin: 01/29/18 21:20 Dose: 40 mg - Labs Labs: 01/30/18 07:28 01/30/18 07:28 PT 16.6 SECONDS (9.4-12.5) H 01/29/18 05:30 INR 1.43 01/29/18 05:30 APTT 26.6 Seconds (25.1-36.5) 01/29/18 05:30 Assessment and Plan - Assessment and Plan (Free Text) Assessment: The computers were not working so I could not finish this note at the time.
[2018-02-01 08:06] LABS: BASO # 0.01 K/mm3 (0.0-2.0); BASO % 0.2 % (0.0-3.0); EOS # 0.1 (0.0-0.7); EOS % 1.1 % (1.5-5.0); GRAN # 3.21 (1.4-6.5); GRAN % 70.6 % (50.0-68.0); HEMOGLOBIN 10.2 g/dL (14.0-18.0); LYMPH # 0.7 (1.2-3.4); LYMPH % 15.8 % (22.0-35.0); MEAN CELL VOLUME 89.3 fl (80.0-105.0); MEAN CORPUSCULAR HEMOGLOBIN 27.3 pg (25.0-35.0); MEAN CORPUSCULAR HGB CONC 30.6 g/dl (31.0-37.0); MEAN PLATELET VOLUME 11.1 fl (7.0-11.0); MONO # 0.6 (0.1-0.6); MONO % 12.3 % (1.0-6.0); RBC 3.73 10^6/uL (3.5-6.1); RED CELL DISTRIBUTION WIDTH 20.9 % (11.5-14.5); WHITE BLOOD COUNT 4.6 10^3/ul (4.5-11.0)
--- NOTE | 2018-02-01 08:08 | CP.PCM.PN ---
Subjective - Date & Time of Evaluation Date of Evaluation: 02/01/18 Time of Evaluation: 07:00 - Subjective Subjective: Stable on 2R. He feels better today. Less nocturnal confusion reported. No CP or SOB. V/S noted. RSR, APCs PE: Lungs: clear Cor.: S1S2 Abd.: soft Ext: + edema Neuro.: alert I/O= 360/1150 Labs 01/31: H/H 9.7/32.5, Cr.= 3.0, K+= 3.3 BC X2 NG at 3 days Echo noted: Sev. LVD, Mild AI, mod. MR, mod/sev. TR and sev. PH Objective - Vital Signs/Intake and Output Vital Signs (last 24 hours): Temp Pulse Resp BP Pulse Ox 98.3 F 115 H 19 124/84 97 02/01/18 06:00 02/01/18 06:00 02/01/18 06:00 02/01/18 06:00 02/01/18 06:00 Intake and Output: 02/01/18 02/01/18 06:59 18:59 Intake Total 360 Output Total 1150 Balance -790 - Medications Medications: Current Medications Albuterol/Ipratropium (Duoneb 3 Mg/0.5 Mg (3 Ml) Ud) 3 ml IH [id number] PRN PRN Reason: Shortness of Breath Last Admin: 01/30/18 20:11 Dose: 3 ml Calcium Carbonate (Caltrate) 600 mg PO DAILY [facility] Last Admin: 01/31/18 10:14 Dose: 600 mg Furosemide (Lasix) 40 mg PO DAILY [facility] Last Admin: 01/31/18 10:14 Dose: 40 mg Pantoprazole Sodium (Protonix Ec Tab) 40 mg PO 0600 [facility] Potassium Chloride (Potassium Chloride Oral Soln) 20 meq PO DAILY [facility] Last Admin: 01/31/18 13:49 Dose: 20 meq - Labs Labs: 01/31/18 06:00 01/31/18 06:00 PT 16.6 SECONDS (9.4-12.5) H 01/29/18 05:30 INR 1.43 01/29/18 05:30 APTT 26.6 Seconds (25.1-36.5) 01/29/18 05:30 Assessment and Plan - Assessment and Plan (Free Text) Assessment: Syncope with bradycardia, hypotension, resolved CAD/PCI [facility] 08/23 Severe LVD on echo with: mild AI, mod. MR, mod/sev. TR and sev. PH CKD PAF CVA Anemia R/O GIB H/O duodenal AVM, diverticulosis Plan: Await AM labs OOB as wenceslao Resume ASA/Plavix (for stents 08/23) as per GI: too risky? Resume Eliquis for PAF as per GI: too risky? Resume atorvastatin. As per Palliative Care and Casper Antonio
[2018-02-01 08:26] LABS: ALB/GLOB RATIO 0.9 (1.1-1.8)
[2018-02-01] MEDS: metOLazone 5 MG TAB PO SCH (11:24)
[2018-02-01] MEDS: Potassium Chloride 20 mEq/15 ml LIQ UD PO SCH (11:25)
--- NOTE | 2018-02-01 22:34 | PN ---
DATE: 02/01/2018 SUBJECTIVE: The patient was seen this morning in room 270, bed 2. Sitting out of bed in a chair. Awake and alert, in rather good spirits. PHYSICAL EXAMINATION: LUNGS: Show good aeration. HEART: Irregular, not tachycardic. EXTREMITIES: Show marked edema, +3-+4 up to the upper thigh. IMPRESSION: 1. Hemoccult positive stools and gastrointestinal bleed in an anticoagulated patient on admission with no further symptoms or drop in his hemoglobin since the initial transfusion. 2. Syncope with bradycardia, receiving Atropine in the field. 3. Coronary artery disease, congestive heart failure, low ejection fraction. PLAN: We will add Zaroxolyn to his current medication regimen to assist in diuresis. Follow electrolytes closely. We will need to speak with Cardiology regarding anticoagulation as there has been no further bleeding, when would it be best to return the patient to either aspirin or Plavix or Eliquis. Aspirin because of stent placement in 08/2017, Plavix because of stent placement in 08/2017, Eliquis because of atrial fibrillation. Cheo Antonio MD
--- NOTE | 2018-02-01 23:07 | CP.PCM.PN ---
Subjective - Date & Time of Evaluation Date of Evaluation: 02/01/18 Time of Evaluation: 10:00 - Subjective Subjective: Feels better No melena or bleeding BRBPR Objective - Vital Signs/Intake and Output Vital Signs (last 24 hours): Temp Pulse Resp BP Pulse Ox 97.6 F 98 H 20 107/66 97 02/01/18 16:25 02/01/18 18:00 02/01/18 16:25 02/01/18 16:25 02/01/18 06:00 Intake and Output: 02/01/18 02/02/18 18:59 06:59 Intake Total 1020 1020 Balance 1020 1020 - Medications Medications: Current Medications Albuterol/Ipratropium (Duoneb 3 Mg/0.5 Mg (3 Ml) Ud) 3 ml IH [id number] PRN PRN Reason: Shortness of Breath Last Admin: 01/30/18 20:11 Dose: 3 ml Atorvastatin Calcium (Lipitor) 40 mg PO DIN [facility] Last Admin: 02/01/18 17:40 Dose: 40 mg Calcium Carbonate (Caltrate) 600 mg PO DAILY [facility] Last Admin: 02/01/18 11:24 Dose: 600 mg Furosemide (Lasix) 40 mg PO DAILY [facility] Last Admin: 02/01/18 11:24 Dose: 40 mg Metolazone (Zaroxolyn) 5 mg PO DAILY [facility] Last Admin: 02/01/18 11:24 Dose: 5 mg Pantoprazole Sodium (Protonix Ec Tab) 40 mg PO 0600 [facility] Potassium Chloride (Potassium Chloride Oral Soln) 20 meq PO DAILY [facility] Last Admin: 02/01/18 11:25 Dose: 20 meq - Labs Labs: 02/01/18 07:30 02/01/18 07:30 PT 16.6 SECONDS (9.4-12.5) H 01/29/18 05:30 INR 1.43 01/29/18 05:30 APTT 26.6 Seconds (25.1-36.5) 01/29/18 05:30 - Constitutional Appears: Well, No Acute Distress - Head Exam Head Exam: ATRAUMATIC, NORMOCEPHALIC - ENT Exam ENT Exam: Mucous Membranes Moist - Neck Exam Neck Exam: Full ROM. absent: Lymphadenopathy - Respiratory Exam Respiratory Exam: Rales Additional comments: Decreased breathe at base - GI/Abdominal Exam GI & Abdominal Exam: Soft. absent: Tenderness, Mass - Neurological Exam Neurological Exam: Alert, Awake, Oriented x3 Assessment and Plan - Assessment and Plan (Free Text) Assessment: History of dark stool melena HCT stable On Eliquis Continue PPI History of duodenal AVM Patient is advised to followup with Dr. Durán as an outpatient
[2018-02-02] MEDS: Pantoprazole 40 mg EC Tab PO SCH (05:41)
[2018-02-02 07:34] LABS: BASO # 0.01 K/mm3 (0.0-2.0); BASO % 0.2 % (0.0-3.0); EOS # 0.1 (0.0-0.7); EOS % 2.1 % (1.5-5.0); GRAN # 2.57 (1.4-6.5); HEMOGLOBIN 10.4 g/dL (14.0-18.0); LYMPH # 1.2 (1.2-3.4); LYMPH % 27.7 % (22.0-35.0); MEAN CELL VOLUME 89.4 fl (80.0-105.0); MEAN CORPUSCULAR HEMOGLOBIN 27.7 pg (25.0-35.0); MEAN PLATELET VOLUME 10.9 fl (7.0-11.0); MONO # 0.4 (0.1-0.6); RBC 3.76 10^6/uL (3.5-6.1); RED CELL DISTRIBUTION WIDTH 21.1 % (11.5-14.5); WHITE BLOOD COUNT 4.3 10^3/ul (4.5-11.0)
[2018-02-02 08:02] LABS: ALB/GLOB RATIO 0.9 (1.1-1.8); ALBUMIN 2.8 g/dL (3.0-4.8)
--- NOTE | 2018-02-02 08:06 | CP.PCM.PN ---
Subjective - Date & Time of Evaluation Date of Evaluation: 02/02/18 Time of Evaluation: 07:00 - Subjective Subjective: Stable on 2R. He feels better today. Less nocturnal confusion reported. No CP or SOB. Still edema but better V/S noted. RSR, APCs PE: Lungs: clear Cor.: S1S2 Abd.: soft Ext: + edema Neuro.: alert Labs 01/31: H/H 10.4/33.6. BMP pending. 02/01: Cr.= 2.5 BC X2 NG at 4 days Echo noted: Sev. LVD, Mild AI, mod. MR, mod/sev. TR and sev. PH Objective - Vital Signs/Intake and Output Vital Signs (last 24 hours): Temp Pulse Resp BP Pulse Ox 97.9 F 90 20 116/71 97 02/02/18 06:00 02/02/18 06:00 02/02/18 06:00 02/02/18 06:00 02/02/18 06:00 Intake and Output: 02/02/18 02/02/18 06:59 18:59 Intake Total 1500 Balance 1500 - Medications Medications: Current Medications Albuterol/Ipratropium (Duoneb 3 Mg/0.5 Mg (3 Ml) Ud) 3 ml IH [id number] PRN PRN Reason: Shortness of Breath Last Admin: 01/30/18 20:11 Dose: 3 ml Atorvastatin Calcium (Lipitor) 40 mg PO DIN [facility] Last Admin: 02/01/18 17:40 Dose: 40 mg Calcium Carbonate (Caltrate) 600 mg PO DAILY [facility] Last Admin: 02/01/18 11:24 Dose: 600 mg Furosemide (Lasix) 40 mg PO DAILY [facility] Last Admin: 02/01/18 11:24 Dose: 40 mg Metolazone (Zaroxolyn) 5 mg PO DAILY [facility] Last Admin: 02/01/18 11:24 Dose: 5 mg Pantoprazole Sodium (Protonix Ec Tab) 40 mg PO 0600 [facility] Last Admin: 02/02/18 05:41 Dose: 40 mg Potassium Chloride (Potassium Chloride Oral Soln) 20 meq PO DAILY [facility] Last Admin: 02/01/18 11:25 Dose: 20 meq - Labs Labs: 02/02/18 05:00 02/01/18 07:30 PT 16.6 SECONDS (9.4-12.5) H 01/29/18 05:30 INR 1.43 01/29/18 05:30 APTT 26.6 Seconds (25.1-36.5) 01/29/18 05:30 Assessment and Plan - Assessment and Plan (Free Text) Assessment: Syncope with bradycardia, hypotension, resolved CAD/PCI [facility] [place] 08/23 Severe LVD on echo with: mild AI, mod. MR, mod/sev. TR and sev. PH CKD PAF CVA Anemia R/O GIB H/O duodenal AVM, diverticulosis Plan: Await AM labs OOB as wenceslao Resume Plavix trial if OK with GI. Hold ASA, Eliquis for now. Monitor for bleeding. As per Palliative Care and Casper Antonio Monitor I/O, labs, H/H, stool for OB, etc.
[2018-02-02] MEDS: Potassium Chloride 20 mEq/15 ml LIQ UD PO SCH (09:21)
[2018-02-02] MEDS: metOLazone 5 MG TAB PO SCH (09:22)
--- NOTE | 2018-02-02 13:46 | CP.PCM.PN ---
Subjective - Date & Time of Evaluation Date of Evaluation: 02/02/18 Time of Evaluation: 10:00 - Subjective Subjective: Alert, oriented, forgetful at times. Offers no complaints Objective - Vital Signs/Intake and Output Vital Signs (last 24 hours): Temp Pulse Resp BP Pulse Ox 97.5 F L 65 18 125/77 97 02/02/18 12:00 02/02/18 12:00 02/02/18 12:00 02/02/18 12:00 02/02/18 06:00 Intake and Output: 02/02/18 02/02/18 06:59 18:59 Intake Total 1500 Balance 1500 - Medications Medications: Current Medications Albuterol/Ipratropium (Duoneb 3 Mg/0.5 Mg (3 Ml) Ud) 3 ml IH [id number] PRN PRN Reason: Shortness of Breath Last Admin: 01/30/18 20:11 Dose: 3 ml Atorvastatin Calcium (Lipitor) 40 mg PO DIN [facility] Last Admin: 02/01/18 17:40 Dose: 40 mg Calcium Carbonate (Caltrate) 600 mg PO DAILY [facility] Last Admin: 02/02/18 09:22 Dose: 600 mg Clopidogrel Bisulfate (Plavix) 75 mg PO DAILY [facility] Last Admin: 02/02/18 09:22 Dose: 75 mg Furosemide (Lasix) 40 mg PO DAILY [facility] Last Admin: 02/02/18 09:21 Dose: 40 mg Metolazone (Zaroxolyn) 5 mg PO DAILY [facility] Last Admin: 02/02/18 09:22 Dose: 5 mg Pantoprazole Sodium (Protonix Ec Tab) 40 mg PO 0600 [facility] Last Admin: 02/02/18 05:41 Dose: 40 mg Potassium Chloride (Potassium Chloride Oral Soln) 20 meq PO BID [facility] - Labs Labs: 02/02/18 05:00 02/02/18 06:30 PT 16.6 SECONDS (9.4-12.5) H 01/29/18 05:30 INR 1.43 01/29/18 05:30 APTT 26.6 Seconds (25.1-36.5) 01/29/18 05:30 - Constitutional Appears: Chronically Ill - Head Exam Head Exam: NORMOCEPHALIC - Eye Exam Eye Exam: Normal appearance, PERRL - ENT Exam ENT Exam: Mucous Membranes Moist, Normal Oropharynx - Respiratory Exam Respiratory Exam: Decreased Breath Sounds, Rhonchi Additional comments: dyspnea on exertion - Cardiovascular Exam Cardiovascular Exam: REGULAR RHYTHM, +S1, +S2 - GI/Abdominal Exam GI & Abdominal Exam: Soft, Normal Bowel Sounds - Extremities Exam Extremities Exam: Pedal Edema - Back Exam Back Exam: NORMAL INSPECTION - Neurological Exam Neurological Exam: Alert, Oriented x3 Assessment and Plan - Assessment and Plan (Free Text) Assessment: 87 year old male with history who was admitted after a syncopal episode with a fib, dyspnea and edema of lower extremities. Echo showed severe LVD, mild AI, mod. MR, mod/sev. TR and severe pulmonary hypertension The patient discussed POLST directive with his POA/son in law Robin Gaming. POA/ patient completed, POLST DNR/DNI directive. A copy is placed the patient's chart Advance Care Planning , 30 minutes Plan: Advance care planning; POLST DNR/DNI Melena: Follow up with GI as out patient Cardiomyopathy: Follow up with cardiology as an out patient
[2018-02-02] MEDS ORDERED: Potassium Chloride 20 mEq/15 ml LIQ UD PO SCH (18:00)
--- NOTE | 2018-02-02 18:44 | PN ---
DATE: 01/28/2018 DAILY PROGRESS NOTE I would like to this progress note to be read as follows, if you would be so kind. SUBJECTIVE: The patient is an 87-year-old male with a past medical history positive for atrial fibrillation, status post coronary catheterization 3 weeks prior to admission, who suffered a syncopal episode at home, was found to be hypotensive and bradycardic by the squad while being brought into the [facility]. He was admitted on 01/28/2018. To date, the patient has been hemodynamically stable. He is followed by Dr. Yañez and Dr. Ellis, his sausage inspector for his atrial fibrillation. He had elevated troponin on admission with some nonspecific ST-T wave changes on his EKG. He is also being followed by Dr. Parrish, the apprentice pattern maker because of some questionable heme-positive stools and drop in his hemoglobin counts shortly after admission. When seen today, the patient is sitting up in a chair. He is awake, alert and oriented. He claims that he is doing well, eating well. The patient is also known to have chronic renal failure with a creatinine around mid 2s. His blood urea nitrogen is in the 50s. His blood pressure is maintained at 116/71, heart rate is 90 and he is afebrile. His potassium this morning on laboratory studies was 3.1. So, we will increase his potassium supplementation to twice a day from 20 mEq once a day. PHYSICAL EXAMINATION: HEART: Irregularly irregular. LUNGS: Clear anteriorly and posteriorly. IMPRESSION AND PLAN: Syncope. The patient had no further syncopal episodes during his hospital stay. He suffered a non ST elevation myocardial infarction, on enzymes. I do not think further workup as far as catheterization would be a good idea considering his renal functions, therefore at this point, we are recommending evaluation and transfer to the Transitional Care Unit for ambulatory strength and endurance. Bryan Antonio MD
[2018-02-03] MEDS: Pantoprazole 40 mg EC Tab PO SCH (06:32)
--- NOTE | 2018-02-03 07:07 | CP.PCM.PN ---
Subjective - Date & Time of Evaluation Date of Evaluation: 02/03/18 Time of Evaluation: 07:00 - Subjective Subjective: Stable on 2R. He feels better today. No CP or SOB. Still edema but better V/S noted. RSR, APCs PE: Lungs: clear Cor.: S1S2 Abd.: soft Ext: + edema Neuro.: alert Labs 02/02: Cr.= 2.3, K+ = 3.1 BC X2 NG at 5 days Echo noted: Sev. LVD, Mild AI, mod. MR, mod/sev. TR and sev. PH Objective - Vital Signs/Intake and Output Vital Signs (last 24 hours): Temp Pulse Resp BP Pulse Ox 97.9 F 70 20 132/88 97 02/03/18 06:00 02/03/18 06:00 02/03/18 06:00 02/03/18 06:00 02/03/18 06:00 Intake and Output: 02/03/18 02/03/18 06:59 18:59 Intake Total 1620 Balance 1620 - Medications Medications: Current Medications Albuterol/Ipratropium (Duoneb 3 Mg/0.5 Mg (3 Ml) Ud) 3 ml IH [id number] PRN PRN Reason: Shortness of Breath Last Admin: 01/30/18 20:11 Dose: 3 ml Atorvastatin Calcium (Lipitor) 40 mg PO DIN [facility] Last Admin: 02/02/18 17:44 Dose: 40 mg Calcium Carbonate (Caltrate) 600 mg PO DAILY [facility] Last Admin: 02/02/18 09:22 Dose: 600 mg Clopidogrel Bisulfate (Plavix) 75 mg PO DAILY [facility] Last Admin: 02/02/18 09:22 Dose: 75 mg Furosemide (Lasix) 40 mg PO DAILY [facility] Last Admin: 02/02/18 09:21 Dose: 40 mg Metolazone (Zaroxolyn) 5 mg PO DAILY [facility] Last Admin: 02/02/18 09:22 Dose: 5 mg Pantoprazole Sodium (Protonix Ec Tab) 40 mg PO 0600 [facility] Last Admin: 02/03/18 06:32 Dose: 40 mg Potassium Chloride (Potassium Chloride Oral Soln) 20 meq PO BID [facility] Last Admin: 02/02/18 17:45 Dose: 20 meq - Labs Labs: 02/02/18 05:00 02/02/18 06:30 PT 16.6 SECONDS (9.4-12.5) H 01/29/18 05:30 INR 1.43 01/29/18 05:30 APTT 26.6 Seconds (25.1-36.5) 01/29/18 05:30 Assessment and Plan - Assessment and Plan (Free Text) Assessment: Syncope with bradycardia, hypotension, resolved CAD/PCI [facility] [place] 08/23 Severe LVD on echo with: mild AI, mod. MR, mod/sev. TR and sev. PH CKD PAF CVA Anemia R/O GIB H/O duodenal AVM, diverticulosis Plan: Await AM labs OOB as wenceslao/PT Continue Plavix if OK with GI. Hold ASA, Eliquis for now. Monitor for bleeding. As per Palliative Care and Casper Antonio Monitor I/O, labs, H/H, stool for OB, etc. TCU eval.
[2018-02-03 07:09] LABS: BASO # 0.01 K/mm3 (0.0-2.0); BASO % 0.2 % (0.0-3.0); EOS # 0.1 (0.0-0.7); EOS % 2.1 % (1.5-5.0); GRAN # 3.34 (1.4-6.5); GRAN % 64.5 % (50.0-68.0); HEMOGLOBIN 10.6 g/dL (14.0-18.0); LYMPH # 1.2 (1.2-3.4); LYMPH % 23.7 % (22.0-35.0); MEAN CELL VOLUME 89.8 fl (80.0-105.0); MEAN CORPUSCULAR HEMOGLOBIN 27.1 pg (25.0-35.0); MEAN CORPUSCULAR HGB CONC 30.2 g/dl (31.0-37.0); MEAN PLATELET VOLUME 10.8 fl (7.0-11.0); MONO # 0.5 (0.1-0.6); MONO % 9.5 % (1.0-6.0); RBC 3.91 10^6/uL (3.5-6.1); RED CELL DISTRIBUTION WIDTH 21.1 % (11.5-14.5); WHITE BLOOD COUNT 5.2 10^3/ul (4.5-11.0)
[2018-02-03 07:25] LABS: CALCIUM 8.1 mg/dL (8.4-10.5)
[2018-02-03] MEDS: metOLazone 5 MG TAB PO SCH (09:46)
[2018-02-03] MEDS: Potassium Chloride 20 mEq/15 ml LIQ UD PO SCH ×2 (09:46→14:02)
[2018-02-03 11:13] VITALS: RESP 18; O2SAT 100
[2018-02-03 12:27] VITALS: BP 136/80; TEMP 97.8
--- NOTE | 2018-02-03 13:06 | DS ---
HISTORY OF PRESENT ILLNESS: The patient is an 87-year-old male who was admitted to the [facility] [place] after suffering a syncopal episode at home. He was found to be hypertensive and bradycardic. He was treated with atropine and IV fluids by the squad upon entering the emergency department. He is noted to have a past medical history positive for atrial fibrillation status post coronary catheterization 3 weeks prior to admission. During his hospital stay, the patient had been hemodynamically stable. He was followed by his consulting software engineer, Dr. Yañez and Dr. Ellis. He did make positive troponin's during his hospital stay with some nonspecific ST-T wave changes on his cardiogram. There is a questionable heme-positive stool in the emergency room, but it was negative in the Intensive Care Unit. His hemoglobin was borderline low; however, the patient was hemodynamically stable through his hospital stay. He was reevaluated by Dr. Parrish, the chief controller station during his stay. When seen today, the patient is resting comfortably. I spoke with the patient's son. They would be willing to pick the patient up for discharge to home today. The patient was a DNR/DNI status. It was decided because of chronic kidney disease with a BUN of 54 and creatinine of 2.3, the patient would not tolerate the dyes and needed for coronary catheterization and therefore he was to be treated conservatively. So, the patient had no further syncopal episode during his hospital stay. PHYSICAL EXAMINATION GENERAL: He was awake, alert and oriented. LUNGS: When seen today, his lungs are clear. HEART: Regular. ABDOMEN: Soft and nontender. HOSPITAL COURSE: Monitor shows atrial fibrillation at a controlled rate. The patient is to continue taking the same medications he was taking prior to hospitalization except he is to hold his Eliquis as per Cardiology. We will continue with his Plavix post discharge. We can also hold aspirin post discharge. The patient will be reevaluated in office visit 1 week post discharge. FINAL DIAGNOSES: 1. Syncope. 2. Non-ST segment elevation myocardial infarction. 3. Atrial fibrillation. 4. Bradycardia. 5. Hypotension. Bryan Antonio MD [facility] # [id number]
[2018-02-03] MEDS ORDERED: Influenza Vaccine 60 mcg/0.5 mL SYR (4YR UP) IM ONE (14:04)
[2018-02-03 14:43] VITALS: PULSE 100
== END 2018-02-03 15:39 | disposition home or self-care (01) | DRG 281 ==
LOC: ED 13:35 → ERH 16:16 → CCU 17:21 → 2RSO 01-29 21:56
PROVIDERS: ADMIT Internal Medicine; ATTEND Internal Medicine
PROC: 3E0234Z Introduction of Serum, Toxoid and Vaccine into Muscle, Percutaneous Approach (ICD-10-PCS; principal; 2018-02-03)
DX: I21.4 Non-ST elevation (NSTEMI) myocardial infarction (principal); I13.0 Hypertensive heart and chronic kidney disease with heart failure and stage 1 through stage 4 chronic kidney disease, or unspecified chronic kidney disease; I50.22 Chronic systolic (congestive) heart failure; K92.2 Gastrointestinal hemorrhage, unspecified; N18.9 Chronic kidney disease, unspecified; D32.9 Benign neoplasm of meninges, unspecified; D64.9 Anemia, unspecified; I08.1 Rheumatic disorders of both mitral and tricuspid valves; I27.20 Pulmonary hypertension, unspecified; I25.10 Atherosclerotic heart disease of native coronary artery without angina pectoris; I48.0 Paroxysmal atrial fibrillation; I49.5 Sick sinus syndrome; J44.9 Chronic obstructive pulmonary disease, unspecified; K31.819 Angiodysplasia of stomach and duodenum without bleeding; K57.90 Diverticulosis of intestine, part unspecified, without perforation or abscess without bleeding; I95.9 Hypotension, unspecified; K59.00 Constipation, unspecified; W19.XXXA Unspecified fall, initial encounter; Y92.009 Unspecified place in unspecified non-institutional (private) residence as the place of occurrence of the external cause; Z66 Do not resuscitate; Z79.01 Long term (current) use of anticoagulants; Z79.02 Long term (current) use of antithrombotics/antiplatelets; Z79.82 Long term (current) use of aspirin; Z87.891 Personal history of nicotine dependence; Z86.73 Personal history of transient ischemic attack (TIA), and cerebral infarction without residual deficits; Z95.5 Presence of coronary angioplasty implant and graft; Z88.0 Allergy status to penicillin; R40.2412 Glasgow coma scale score 13-15, at arrival to emergency department; Z23 Encounter for immunization

== ENCOUNTER 2018-02-28 12:36 | Inpatient (IN) | payer BC, MEDICARE ==
[2018-02-28 12:37] VITALS: BMI 30.1
--- NOTE | 2018-02-28 12:49 | ED PDOC ---
Arrival/HPI - General Chief Complaint: Trauma Time Seen by Provider: 02/28/18 12:37 Historian: Patient, Family - History of Present Illness Narrative History of Present Illness (Text): 02/28/18 12:49 88 y/o M w/ h/o atrial fibrillation, CHF, and emphysema presenting to the Emergency Department with his daughter complaining of back pain s/p falling yesterday. Per patient's daughter, the patient fell and complained of back pain while being moved. Of note, he lives at home with his caregiver and son. The patient states prior to his fall, he denies dizziness or loss consciousness, but is unsure if he suffered any head trauma. He currently denies any back or neck pain. The patient's daughter reports an increase in lower extremity edema from his baseline. Of note, patient has a history of emphysema and uses 2L O2 at home. He also complains of 2 days of constipation and denies having a bowel movement today. He denies fevers, chills, cough, chest pain, abdominal pain, nausea, vomiting, neck pain, headache, dizziness, or any other complaint. PMD: Dr. Antonio Surveyor Helper: Dr. Wesley Time/Duration: Other (ealier today) Symptom Onset: Gradual Symptom Course: Resolved Context: Home Past Medical History - Provider Review Nursing Documentation Reviewed: Yes - Infectious Disease Hx of Infectious Diseases: None - Cardiac Hx Atrial Fibrillation: Yes Hx Congestive Heart Failure: Yes Hx Hypertension: Yes Hx Hypotension: Yes Other/Comment: PTCA. h/o bradycardia & afib. h/o syncope. NSTEMI - Neurological Hx Paralysis: No Hx Syncope: Yes - Renal Hx Renal Disorder: Yes - Hematological/Oncological Hx Anemia: Yes Hx Blood Transfusions: No Hx Blood Transfusion Reaction: No - Musculoskeletal/Rheumatological Hx Musculoskeletal Disorders: No - Psychiatric Hx Emotional Abuse: No Hx Physical Abuse: No Hx Substance Use: No - Anesthesia Hx Anesthesia Reactions: No Hx Malignant Hyperthermia: No - Suicidal Assessment Feels Threatened In Home Enviroment: No Family/Social History - Physician Review Nursing Documentation Reviewed: Yes Family/Social History: No Known Family HX Smoking Status: Former Smoker Hx Alcohol Use: No (QUIT 25 YRS AGO) Hx Substance Use: No Allergies/Home Meds Allergies/Adverse Reactions: Allergies Penicillins Allergy (Verified 01/28/18 13:39) RASH Home Medications: Home Meds Medication Instructions Recorded Confirmed Atorvastatin [Lipitor] 40 mg PO QPM 01/28/18 02/28/18 Clopidogrel [Plavix] 75 mg PO DAILY 01/28/18 02/28/18 Ferrous Sulfate [Feosol] 325 mg PO BID 01/28/18 02/28/18 Folic Acid 1 mg PO QPM 01/28/18 02/28/18 Furosemide [Lasix] 40 mg PO DAILY 01/28/18 02/28/18 Multivitamin [Honey Bears] 1 tab PO DAILY 01/28/18 02/28/18 Pantoprazole Sodium [Protonix] 20 mg PO DAILY 01/28/18 02/28/18 Metoprolol Succinate XL [Toprol XL] 1 tab PO DAILY 02/28/18 02/28/18 Review of Systems - Patients Enrolled in [employer] [X]: A conversation was conducted with the primary medical doctor. - Physician Review All systems were reviewed & negative as marked: Yes - Review of Systems Constitutional: absent: Fevers Respiratory: absent: Cough Cardiovascular: absent: Chest Pain Gastrointestinal: Constipation. absent: Abdominal Pain, Nausea, Vomiting Musculoskeletal: Back Pain. absent: Neck Pain Skin: absent: Rash Neurological: absent: Headache, Dizziness Physical Exam Vital Signs Reviewed: Yes Temperature: Afebrile Blood Pressure: Hypotensive Pulse: Bradycardic Respiratory Rate: Normal Appearance: Positive for: Well-Appearing Pain Distress: None Mental Status: Positive for: Alert and Oriented X 3 - Systems Exam Head: Present: Atraumatic, Normocephalic Pupils: Present: PERRL Extroacular Muscles: Present: EOMI Conjunctiva: Present: Normal Mouth: Present: Moist Mucous Membranes Neck: Present: Normal Range of Motion Respiratory/Chest: Present: Clear to Auscultation, Good Air Exchange. No: Respiratory Distress, Accessory Muscle Use Cardiovascular: Present: Regular Rate and Rhythm, Normal S1, S2. No: Murmurs Abdomen: No: Tenderness, Distention, Peritoneal Signs Rectal: Present: Occult Blood, Rectal Tenderness (tenderness with finger insertion to rectum), Normal Rectal Tone (anal wink intact), Other (Social Work Associate: nurse) Back: Present: Normal Inspection, Midline Tenderness, Other (sacral ulcer stage 1; large abrasion noted towards Lumbosacral region) Upper Extremity: Present: Normal Inspection, Other (clubbing of fingertips bilaterally). No: Cyanosis, Edema, Capillary Refill < 2s (delayed refill bilaterally) Lower Extremity: Present: Normal Inspection, Edema (+3 bilateral pitting edema), Temperature Abnormalties (feet feel cold Bilaterally), Other (Chronic venous stasis bilaterally) Neurological: Present: GCS=15, CN II-XII Intact, Speech Normal Skin: Present: Warm, Dry, Normal Color, Other (ecchymosis of bilateral upper extemeties; contusions noted on trunk ). No: Rashes Psychiatric: Present: Alert, Oriented x 3, Normal Insight, Normal Concentration Medical Decision Making ED Course and Treatment: 02/28/18 12:49 Impression: 88 year old male who presents to the Emergency department with back pain s/p falling yesterday. Differential Diagnosis included but are not limited to: PNA UTI GI bleed sepsis intracranial bleed Plan: -- Venous Blood Gas -- Cervical spine CT without contrast -- Head Ct without contrast -- Lumbar spine CT without contrast -- EKG -- Labs -- Cardiac Enzymes -- Blood culture -- Urine culture -- UA --ICU consult -- Reassess and disposition Prior Visits: Notes and results from previous visits were reviewed. Progress Notes: 02/28/18 14:17 Reviewed patient noted to be hyponatremic at 128, Troponin 0.57, BNP at 3500. 02/28/18 14:20 Discussed case with (flow specialist), who is aware of and accept patient for admission. 02/28/18 14:41 Discussed case with , who is aware of patient and requests / for nephrology consult and for cardiology consult. - Critical Care Critical Care Minutes: Other (35 minutes) - Lab Interpretations I have reviewed the lab results: Yes - RAD Interpretation Narrative RAD Interpretations (Text): 02/28/2018 14:15 Chest X-ray: Dictator: Javed King MD IMPRESSION: No infiltrate. Possible small bilateral pleural effusions. 02/28/2018 14:[address] without contrast: Dictator: Javed King MD FINDINGS: VERTEBRAE: The vertebral bodies are maintained in height. There is grade 1 retrolisthesis at C5-6, likely degenerative in origin. There is grade 1 anterolisthesis at C7-T1, likely degenerative in origin. Normal alignment is otherwise maintained. The atlantoaxial articulation and odontoid process are intact. DISCS/SPINAL CANAL/NEURAL FORAMINA: Degenerative disc disease noted with disc space narrowing from see 3-4 through C7-T1. Mild central spinal stenosis noted at the C3-4 intervertebral disc space level. PARASPINAL SOFT TISSUES: Unremarkable. OTHER FINDINGS: None. IMPRESSION: No fracture. Minimal listhesis at C5-6 and C7-T1, likely degenerative in origin. Multilevel degenerative disc disease. Mild central spinal stenosis noted at C3-4. No other significant abnormality. 02/28/2018 14:[address] without contrast: Dictator: Vega Alaniz MD FINDINGS: HEMORRHAGE: No intracranial hemorrhage. BRAIN: No mass effect or edema. Mild atrophy. VENTRICLES: Unremarkable. No hydrocephalus. CALVARIUM: Unremarkable. PARANASAL SINUSES: Right maxillary sinus opacification. MASTOID AIR CELLS: Unremarkable as visualized. No inflammatory changes. OTHER FINDINGS: None. IMPRESSION: No acute hemorrhage. 02/28/2018 14:[address] without contrast: Dictator: Vega Alaniz MD FINDINGS: VERTEBRAE: Unremarkable. No fracture. Normal alignment. DISCS/SPINAL CANAL/NEURAL FORAMINA: Multilevel degenerative disc disease and vacuum disc phenomenon as well as multilevel degenerative spondylosis. L2-3 disc bulge with posterior ridging and facet arthropathy contributing to mild central canal stenosis and bilateral foraminal stenosis. L3-4 disc bulge with thecal sac indentation. L4-5 grade 1 anterolisthesis with disc bulge and severe left foraminal stenosis. PARASPINAL SOFT TISSUES: Extensive vascular calcifications with incompletely imaged abdominal aortic aneurysm. OTHER FINDINGS: None. IMPRESSION: No acute fracture. Multilevel degenerative changes. Abdominal aortic aneurysm. Radiology Orders: 02/28/18 12:38 CHEST PORTABLE [RAD] Stat 02/28/18 12:48 CERVICAL SPINE W/O CONTRAST [CT] Stat HEAD W/O CONTRAST [CT] Stat [place]: Radiologist - EKG Interpretation EKG Interpretation (Text): 02/28/18 12: 49 EKG shows NSR at 61 BPM with PAC's noted in inferior leads. No ST elevations or T wave inversions. Interpreted by me. Interpreted by ED Physician: Yes Type: 12 lead EKG - Scribe Statement The provider has reviewed the documentation as recorded by the Scribe Tammy Brunner training with Gentry Valera Provider Scribe Attestation: All medical record entries made by the Scribe were at my direction and personally dictated by me. I have reviewed the chart and agree that the record accurately reflects my personal performance of the history, physical exam, medical decision making, and the department course for this patient. I have also personally directed, reviewed, and agree with the discharge instructions and disposition. Disposition/Present on Arrival - Present on Arrival Any Indicators Present on Arrival: Yes History of DVT/PE: No History of Uncontrolled Diabetes: No Urinary Catheter: Yes History of Decub. Ulcer: No History Surgical Site Infection Following: None - Disposition Have Diagnosis and Disposition been Completed?: Yes Diagnosis: NSTEMI (non-ST elevated myocardial infarction) Disposition: HOSPITALIZED Disposition Time: 14:41 Patient Plan: Admission, ICU Condition: FAIR
--- NOTE | 2018-02-28 13:12 | RAD ---
Date of service: 02/28/2018 HISTORY: sob COMPARISON: 01/28/2018 FINDINGS: LUNGS: No active pulmonary disease. PLEURA: Minimal blunting of both costophrenic angles may reflect small pleural effusions or chronic pleural thickening. CARDIOVASCULAR: No aortic atherosclerotic calcification present OSSEOUS STRUCTURES: No significant abnormalities. VISUALIZED UPPER ABDOMEN: Normal. OTHER FINDINGS: None. IMPRESSION: No infiltrate. Possible small bilateral pleural effusions.
[2018-02-28 13:53] LABS: GRAN # 7.38 (1.4-6.5); GRAN % 90.7 % (50.0-68.0); HEMOGLOBIN 11.7 g/dL (14.0-18.0); LYMPH # 0.4 (1.2-3.4); LYMPH % 5.4 % (22.0-35.0); MEAN CELL VOLUME 90.3 fl (80.0-105.0); MEAN CORPUSCULAR HEMOGLOBIN 28.4 pg (25.0-35.0); MEAN CORPUSCULAR HGB CONC 31.5 g/dl (31.0-37.0); MONO # 0.3 (0.1-0.6); MONO % 3.9 % (1.0-6.0); PLATELET COUNT 54 10^3/uL (120.0-450.0); RBC 4.12 10^6/uL (3.5-6.1); RED CELL DISTRIBUTION WIDTH 23.1 % (11.5-14.5); WHITE BLOOD COUNT 8.1 10^3/ul (4.5-11.0)
[2018-02-28 13:57] LABS: PH,URINE 5.5 (4.7-8.0); URINE BILIRUBIN MODERATE (NEGATIVE); URINE BLOOD TRACE-INTACT (NEGATIVE); URINE GLUCOSE (UA) NEGATIVE (NEGATIVE); URINE LEUKOCYTE ESTERASE TRACE Leu/uL (NEGATIVE); URINE PROTEIN >=300 mg/dL (<30 mg/dL); URINE UROBILINOGEN 0.2 E.U./dL (<1 E.U./dL); VENOUS BLOOD GAS BASE EXCESS -4.8 mmol/L (0.0-2.0); VENOUS BLOOD GAS PO2 49 mm/Hg (30-55); VENOUS BLOOD PH 7.32 (7.32-7.43)
[2018-02-28 14:01] LABS: URINE APPEARANCE SL CLOUDY (CLEAR); URINE COLOR YELLOW (YELLOW)
[2018-02-28 14:04] LABS: INR 2.55; PARTIAL THROMBOPLASTIN TIME 34.6 Seconds (25.1-36.5); PROTHROMBIN TIME 29.9 SECONDS (9.4-12.5)
[2018-02-28 14:08] LABS: LYMPHOCYTE 6 % (22.0-35.0); MONOCYTE 3 % (1.0-6.0); NEUTROPHIL 91 % (50.0-70.0)
[2018-02-28 14:09] LABS: PLATELET ESTIMATE LOW (NORMAL); POIKILOCYTOSIS 2+
[2018-02-28 14:10] LABS: OVALOCYTES SLIGHT
[2018-02-28 14:11] LABS: SCHISTOCYTES MODERATE
--- NOTE | 2018-02-28 14:11 | CT ---
Date of service: 02/28/2018 PROCEDURE: CT Cervical Spine without contrast HISTORY: fall COMPARISON: None available. TECHNIQUE: Axial computed tomography images were obtained of the cervical spine without the use of intravenous contrast. Coronal and sagittal reformatted images were created and reviewed. Radiation dose: Total exam DLP = 705.73 mGy-cm. This CT exam was performed using one or more of the following dose reduction techniques: Automated exposure control, adjustment of the mA and/or kV according to patient size, and/or use of iterative reconstruction technique. FINDINGS: VERTEBRAE: The vertebral bodies are maintained in height. There is grade 1 retrolisthesis at C5-6, likely degenerative in origin. There is grade 1 anterolisthesis at C7-T1, likely degenerative in origin. Normal alignment is otherwise maintained. The atlantoaxial articulation and odontoid process are intact. DISCS/SPINAL CANAL/NEURAL FORAMINA: Degenerative disc disease noted with disc space narrowing from see 3-4 through C7-T1. Mild central spinal stenosis noted at the C3-4 intervertebral disc space level. PARASPINAL SOFT TISSUES: Unremarkable. OTHER FINDINGS: None. IMPRESSION: No fracture. Minimal listhesis at C5-6 and C7-T1, likely degenerative in origin. Multilevel degenerative disc disease. Mild central spinal stenosis noted at C3-4. No other significant abnormality.
--- NOTE | 2018-02-28 14:12 | CT ---
Date of service: 02/28/2018 PROCEDURE: CT HEAD WITHOUT CONTRAST. HISTORY: headache COMPARISON: None available. TECHNIQUE: Axial computed tomography images were obtained through the head/brain without intravenous contrast. Radiation dose: Total exam DLP = 1025.83 mGy-cm. This CT exam was performed using one or more of the following dose reduction techniques: Automated exposure control, adjustment of the mA and/or kV according to patient size, and/or use of iterative reconstruction technique. FINDINGS: HEMORRHAGE: No intracranial hemorrhage. BRAIN: No mass effect or edema. Mild atrophy. VENTRICLES: Unremarkable. No hydrocephalus. CALVARIUM: Unremarkable. PARANASAL SINUSES: Right maxillary sinus opacification. MASTOID AIR CELLS: Unremarkable as visualized. No inflammatory changes. OTHER FINDINGS: None. IMPRESSION: No acute hemorrhage.
[2018-02-28 14:15] LABS: ALB/GLOB RATIO 0.9 (1.1-1.8); ALBUMIN 3.1 g/dL (3.0-4.8); ALT/SGPT 300 U/L (7-56); AST/SGOT 423 U/L (17-59); B-TYPE NATRIURETIC PEPTIDE > 35000 pg/mL (0-450); BLOOD UREA NITROGEN 132 mg/dL (7-21); CALCIUM 7.4 mg/dL (8.4-10.5); GFR NON-AFRICAN AMERICAN 7; TROPONIN I 0.57 ng/mL; URINE BACTERIA MOD (NEG); URINE RBC 0 - 2 /hpf (0-2)
[2018-02-28 14:16] LABS: URINE AMORPHOUS SEDIMENT SMALL; URINE COARSE GRANULAR CAST TRACE /hpf (0-2)
[2018-02-28] MEDS ORDERED: Sodium Bicarbonate (8.4%) 50 Meq Syringe IVP ONE ×2 (14:19→14:33)
[2018-02-28] MEDS ORDERED: Albuterol 0.083% Inhal Sol (2.5 mg/3 mL) UD INH STA (14:19)
[2018-02-28] MEDS ORDERED: Sodium Chloride 0.9% 1,000 ML IV STA ×2 (14:37→14:44)
--- NOTE | 2018-02-28 14:39 | CT ---
Date of service: 02/28/2018 PROCEDURE: CT Lumbar Spine without contrast HISTORY: s/p fallw/ area of erythema to sacrum COMPARISON: None available. TECHNIQUE: Axial computed tomography images were obtained of the lumbar spine without the use of intravenous contrast. Coronal and sagittal reformatted images were created and reviewed. Radiation dose: Total exam DLP = 1468.37 mGy-cm. This CT exam was performed using one or more of the following dose reduction techniques: Automated exposure control, adjustment of the mA and/or kV according to patient size, and/or use of iterative reconstruction technique. FINDINGS: VERTEBRAE: Unremarkable. No fracture. Normal alignment. DISCS/SPINAL CANAL/NEURAL FORAMINA: Multilevel degenerative disc disease and vacuum disc phenomenon as well as multilevel degenerative spondylosis. L2-3 disc bulge with posterior ridging and facet arthropathy contributing to mild central canal stenosis and bilateral foraminal stenosis. L3-4 disc bulge with thecal sac indentation. L4-5 grade 1 anterolisthesis with disc bulge and severe left foraminal stenosis. PARASPINAL SOFT TISSUES: Extensive vascular calcifications with incompletely imaged abdominal aortic aneurysm. OTHER FINDINGS: None. IMPRESSION: No acute fracture. Multilevel degenerative changes. Abdominal aortic aneurysm.
[2018-02-28] MEDS ORDERED: Ciprofloxacin 400mg/200ml D5W 400 MG/200 ML BAG IVPB STA (14:41)
--- NOTE | 2018-02-28 14:52 | CARD ---
APPROVED REPORT Date of service: 02/28/2018 EKG Measurement Heart [id number] <Conclusion> Sinus rhythm with premature atrial complexes Inferior infarct, age undetermined Cannot rule out Anteroseptal infarct, age undetermined NSSTW changes Prolonged QTc
[2018-02-28] MEDS ORDERED: cefTRIAXone 1 gm 1 GM/100 ML BAG IVPB SCH (15:15)
[2018-02-28] MEDS ORDERED: Sodium Chloride 0.9% 1,000 ML IV SCH ×3 (15:15→18:29)
[2018-02-28] MEDS ORDERED: Aztreonam 1 Gm in NS 100mL 100 ML IVPB STA ×2 (15:16→15:23)
[2018-02-28] MEDS ORDERED: Vancomycin 1gm in NS 250ml 1 GM/250 ML BAG IVPB STA ×2 (15:16→15:23)
--- NOTE | 2018-02-28 15:16 | CP.PCM.CON ---
History of Present Illness - History of Present Illness History of Present Illness: HPI Patient is 88yo male with PMhx of Afib on A.C, CHF EF 35%, Pulm HTN, presents from home with back pain, fatigue, malaise, and poor PO intake. Pt denies fever, chills, cough, chest pain, sob, palpitations, FOSS, dizziness. Pt reports for last week or so, he has had poor PO intake, not taking much fluids. No other constitutional symptoms. PMHx Afib on A.C, CHF EF 35%, Pulm HTN PSHx as above Meds as per EMR Allergies NKDA ROS as above In the ER given 1L NS bolus. Review of Systems - Review of Systems Review of Systems: as per HPI Past Patient History - Infectious Disease Hx of Infectious Diseases: None - Past Social History Smoking Status: Former Smoker - CARDIAC Hx Atrial Fibrillation: Yes Hx Congestive Heart Failure: Yes Hx Hypertension: Yes Hx Hypotension: Yes Other/Comment: PTCA. h/o bradycardia & afib. h/o syncope. NSTEMI - NEUROLOGICAL Hx Paralysis: No Hx Syncope: Yes - RENAL Hx Chronic Kidney Disease: Yes - HEMATOLOGICAL/ONCOLOGICAL Hx Anemia: Yes Hx Blood Transfusions: No Hx Blood Transfusion Reaction: No - MUSCULOSKELETAL/RHEUMATOLOGICAL Hx Musculoskeletal Disorders: No - PSYCHIATRIC Hx Emotional Abuse: No Hx Physical Abuse: No Hx Substance Use: No - SURGICAL HISTORY Hx Surgeries: Yes - ANESTHESIA Hx Anesthesia Reactions: No Hx Malignant Hyperthermia: No Meds Allergies/Adverse Reactions: Allergies Allergy/AdvReac Type Severity Reaction Status Date / Time Penicillins Allergy RASH Verified 01/28/18 13:39 - Medications Medications: Current Medications Sodium Chloride (Sodium Chloride 0.9%) 1,000 mls @ 999 mls/hr IV .Q1H1M STA Stop: 02/28/18 15:37 Last Admin: 02/28/18 14:43 Dose: 999 mls/hr Ciprofloxacin (Cipro 400mg/200ml Dsw) 400 mg in 200 mls @ 133.3 mls/hr IVPB STAT STA; Protocol Stop: 02/28/18 16:11 Sodium Chloride (Sodium Chloride 0.9%) 1,000 mls @ 999 mls/hr IV .Q1H1M STA Stop: 02/28/18 15:44 Physical Exam - Constitutional Appears: Non-toxic, No Acute Distress - Head Exam Head Exam: NORMAL INSPECTION - Eye Exam Eye Exam: EOMI, Normal appearance - ENT Exam ENT Exam: Mucous Membranes Dry - Neck Exam Neck exam: Positive for: Full Rom - Respiratory Exam Respiratory Exam: Clear to Auscultation Bilateral, NORMAL BREATHING PATTERN - Cardiovascular Exam Cardiovascular Exam: REGULAR RHYTHM, +S1, +S2 - GI/Abdominal Exam GI & Abdominal Exam: Normal Bowel Sounds, Soft - Extremities Exam Extremities exam: Positive for: full ROM - Neurological Exam Neurological exam: Alert, Oriented x3 Results - Vital Signs Recent Vital Signs: Last Vital Signs Temp 97.9 F 02/28/18 13:29 Pulse 64 02/28/18 13:42 Resp 18 02/28/18 13:42 BP 78/52 L 02/28/18 14:42 Pulse Ox 97 02/28/18 13:42 - Labs Result Diagrams: 02/28/18 13:30 02/28/18 13:30 Labs: Laboratory Results - last 24 hr 02/28/18 02/28/18 02/28/18 13:30 13:30 13:30 WBC 8.1 D RBC 4.12 Hgb 11.7 L Hct 37.2 L MCV 90.3 MCH 28.4 MCHC 31.5 RDW 23.1 H Plt Count 54 L Gran % 90.7 H Lymph % (Auto) 5.4 L Lake % (Auto) 3.9 Eos % (Auto) 0.0 L Baso % (Auto) 0.0 Gran # 7.38 H Lymph # (Auto) 0.4 L Lake # (Auto) 0.3 Eos # (Auto) 0.0 Baso # (Auto) 0.00 Neutrophils % (Manual) 91 H Lymphocytes % (Manual) 6 L Monocytes % (Manual) 3 Platelet Evaluation Low Poikilocytosis (manual 2+ Ovalocytes Slight Schistocytes Moderate PT INR APTT pO2 49 VBG pH 7.32 VBG pCO2 41.0 VBG HCO3 21.1 VBG Total CO2 22.4 VBG O2 Sat (Calc) 82.6 H VBG Base Excess -4.8 L VBG Potassium 6.1 H Sodium 124.0 L 128 L Chloride 84.0 L 85 L Glucose 146 H Lactate 3.7 H FiO2 21.0 Potassium 4.7 Carbon Dioxide 20 L Anion Gap 28 H BUN 132 H* Creatinine 7.2 H Est GFR ( Amer) 9 Est GFR (Non-Af Amer) 7 Random Glucose 141 H Calcium 7.4 L Magnesium 2.4 H Total Bilirubin 4.5 H AST 423 H D ALT 300 H Alkaline Phosphatase 201 H D Troponin I 0.57 H* D NT-Pro-B Natriuret Pep > 58225 H Total Protein 6.8 Albumin 3.1 Globulin 3.6 Albumin/Globulin Ratio 0.9 L Venous Blood Potassium 6.1 H Urine Color Urine Appearance Urine pH Ur Specific [place] Urine Protein Urine Glucose (UA) Urine Ketones Urine Blood Urine Nitrate Urine Bilirubin Urine Urobilinogen Ur Leukocyte Esterase Urine RBC Urine WBC Ur Epithelial Cells Amorphous Sediment Urine Bacteria Coarse Granular Casts 02/28/18 02/28/18 13:30 13:30 WBC RBC Hgb Hct MCV MCH MCHC RDW Plt Count Gran % Lymph % (Auto) Lake % (Auto) Eos % (Auto) Baso % (Auto) Gran # Lymph # (Auto) Lake # (Auto) Eos # (Auto) Baso # (Auto) Neutrophils % (Manual) Lymphocytes % (Manual) Monocytes % (Manual) Platelet Evaluation Poikilocytosis (manual Ovalocytes Schistocytes PT 29.9 H INR 2.55 APTT 34.6 pO2 VBG pH VBG pCO2 VBG HCO3 VBG Total CO2 VBG O2 Sat (Calc) VBG Base Excess VBG Potassium Sodium Chloride Glucose Lactate FiO2 Potassium Carbon Dioxide Anion Gap BUN Creatinine Est GFR ( Amer) Est GFR (Non-Af Amer) Random Glucose Calcium Magnesium Total Bilirubin AST ALT Alkaline Phosphatase Troponin I NT-Pro-B Natriuret Pep Total Protein Albumin Globulin Albumin/Globulin Ratio Venous Blood Potassium Urine Color Yellow Urine Appearance Sl cloudy Urine pH 5.5 Ur Specific [place] >= 1.030 Urine Protein >=300 H Urine Glucose (UA) Negative Urine Ketones Negative Urine Blood Trace-intact H Urine Nitrate Negative Urine Bilirubin Moderate H Urine Urobilinogen 0.2 Ur Leukocyte Esterase Trace H Urine RBC 0 - 2 Urine WBC 2 - 5 Ur Epithelial Cells 1 - 3 Amorphous Sediment Small Urine Bacteria Mod Coarse Granular Casts Trace H Assessment & Plan - Assessment and Plan (Free Text) Assessment: 88yo male a/w severe sepsis, lactic acidosis, UTI, dehydration UTI Dehydration Lactic Acidosis Acute on CKD Severe Sepsis - currently afebrile, SBP 75-85, HR 60s, took BP meds today, has had poor PO intake for last week - labs, imaging, chart reviewed Recommend: - supp o2 as needed, duonebs, PRN - Aztreonam, Vanco IV - panculture, UCx, BCx, Check Procal - ID eval - FS control - IVF bolus 1L - IVF hydration - check Ulytes, renal sono, renal eval - GI ppx - DVT ppx - Monitor in MICU Critical care time 40 minutes
[2018-02-28] MEDS ORDERED: Albuterol-Ipratrop 3 mg / 0.5 (3 ml) UD IH PRN (15:43)
[2018-02-28] MEDS ORDERED: Influenza Vaccine 60 mcg/0.5 mL SYR (4YR UP) IM ONE (17:39)
[2018-02-28] MEDS ORDERED: Pneumococcal 23-Valent Vaccine IM ONE (17:39)
[2018-02-28 20:00] LABS: VENOUS BLOOD GAS BASE EXCESS -10.2 mmol/L (0.0-2.0); VENOUS BLOOD GAS PO2 36 mm/Hg (30-55); VENOUS BLOOD PH 7.23 (7.32-7.43)
[2018-02-28] MEDS: NOREPINEPHRINE BIT/0.9 % NACL 4 MG/250 ML BAG IV PRN (23:04)
[2018-03-01 00:15] LABS: VENOUS BLOOD GAS BASE EXCESS -7.7 mmol/L (0.0-2.0); VENOUS BLOOD GAS PO2 23 mm/Hg (30-55); VENOUS BLOOD PH 7.27 (7.32-7.43)
[2018-03-01 04:19] LABS: VENOUS BLOOD GAS BASE EXCESS -5.9 mmol/L (0.0-2.0); VENOUS BLOOD GAS PO2 32 mm/Hg (30-55)
--- NOTE | 2018-03-01 04:52 | CON ---
DATE: 02/28/2018 REASON FOR CONSULTATION: Acute kidney injury, hyponatremia, lethargy. HISTORY OF PRESENTING ILLNESS: An 88-year-old male previously unknown to me, brought to the emergency room by family members because of progressive weakness, decreased p.o. intake for the last 1 week, fall at home yesterday, shortness of breath, slurred speech noted by daughter only now. The patient lives at home with the daughter. Daughter reports he fell yesterday. He was lifted off the floor by her and her son. She also reports that he has been eating less for the last 1 week. He complains of progressive weakness. She reports that he has been unable to walk for the last 1 week. Prior to that he used to walk with a walker. Also complains of increasing edema of his legs. No history of any fever or chills. No history of any cough. No history of any shortness of breath. No abdominal pain, nausea, vomiting. In the emergency room, the patient was found to be hypotensive, initial blood pressure was 87/43. Heart rate was 58 at the time of presentation. He was found to be afebrile. He received 1 L of IV fluids in the emergency room. His initial blood work showed BUN of 132 and his creatinine of 7.2. His sodium was found to be 128. The patient was recently discharged from [facility] when he was admitted on 01/28 and thought to have acute coronary syndrome. Elevated troponin. During that admission, his BUN, creatinine were 52/2.3. The patient is currently in the ICU. He is in mild respiratory distress. He is having difficulty speaking. His speech is slurred. Daughter is at bedside. PAST MEDICAL AND SURGICAL HISTORY: Chronic atrial fibrillation, on anticoagulation; CAD; PTCA and stent; cardiac catheterization in 08/2017; GI bleed; severe anemia; chronic kidney disease stage IV; cardiomyopathy; decreased ejection fraction of 35%; global hypokinesis. FAMILY HISTORY: Noncontributory. SOCIAL HISTORY: Smoker, quit few years ago, history of alcohol use, no current alcohol intake, no drug abuse. ALLERGIES: PENICILLIN. MEDICATIONS AT HOME: Protonix 20, Toprol XL, Lasix 40, folic acid 1 mg, Feosol 325 b.i.d., Plavix 75, Lipitor 40. REVIEW OF SYSTEMS: Systems review is limited as the patient is unable to fully cooperate, his speech is also slurred. PHYSICAL EXAMINATION GENERAL: Elderly male lying in bed in the ICU. VITAL SIGNS: Blood pressure 105/54, heart rate 63, respiratory rate 18-20, temperature 97.4. HEENT: Normocephalic, atraumatic, positive pallor. NECK: Supple, no JVD. LUNGS: Bilateral equal air entry, bilateral equal expansion, no rales appreciated. CARDIAC: S1, S2, regular rate rhythm, positive murmur, no rub. ABDOMEN: Soft, nondistended, nontender, bowel sounds present. EXTREMITIES: Chronic stasis changes, 3+ pitting edema of the lower extremities, dry skin, hyperpigmentation of the skin, skin breakdown. LABORATORY DATA: WBC 8.1, hemoglobin 11.7, hematocrit 37, platelets 54. Sodium 128, potassium 4.7, chloride 85, CO2 of 20, BUN 132, creatinine 7.2, glucose 141, uric acid 19.7, calcium 7.4, magnesium 2.4, total bili 4.5, AST 423, ALT 300, albumin 3.1, corrected calcium is 8.1. Urinalysis yellow, slightly cloudy, pH 5.5, specific gravity 1.030, protein more than 300, glucose negative, blood trace, bilirubin moderate, leukocyte esterase trace. Venous pH 7.32. Echocardiogram from 01/29/2018 normal left ventricular size, severely impaired left ventricular systolic function, EF 20-25%, global hypokinesis, moderate mitral regurg, moderate severe tricuspid regurg, severe pulmonary hypertension. Cervical spine CT: No fracture, minimal listhesis at C5 and C7, multilevel disc degeneration. CURRENT MEDICATIONS: DuoNeb, Eliquis 2.5 b.i.d., Plavix 75, Protonix 40 IV daily, normal saline at 80, Azactam 1 g given, ciprofloxacin 400 mg given, and vancomycin 1 g. ASSESSMENT: 1. Acute kidney injury superimposed on chronic kidney disease stage IV, etiology prerenal azotemia ?, intravascular volume depletion. 2. Severe pulmonary hypertension. 3. Severe cardiomyopathy, decreased ejection fraction of 25%, global hypokinesis. 4. Coronary artery disease, history of percutaneous transluminal coronary angioplasty and stent. 5. Hyponatremia, ? depletional. 6. Acute liver injury, elevated liver function tests, ? gallbladder disease. 6. 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 7. Elevated troponins ? secondary to renal insufficiency. PLAN: 1. Abdominal ultrasound. 2. Place [place]. 3. Check urine sodium, urine osmolality, serum uric acid. 4. Trial of hydration. 5. Empiric antibiotics to cover for intra-abdominal sepsis ? 6. Consider inotropic agents to increase blood pressure. 7. Case discussed at length with daughter at bedside, discussed with daughter that the patient is not really a candidate for renal replacement therapy. Daughter understands the patient declines dialysis, as per the patient's wishes. Case discussed with ICU nursing staff. More than 35 minutes spent in the care of this critically ill patient. Kimberly Bolanos MD
[2018-03-01 06:44] LABS: GRAN # 8.69 (1.4-6.5); GRAN % 92.4 % (50.0-68.0); HEMOGLOBIN 10.6 g/dL (14.0-18.0); LYMPH # 0.5 (1.2-3.4); LYMPH % 4.9 % (22.0-35.0); MEAN CELL VOLUME 89.1 fl (80.0-105.0); MEAN CORPUSCULAR HEMOGLOBIN 28.1 pg (25.0-35.0); MEAN CORPUSCULAR HGB CONC 31.5 g/dl (31.0-37.0); MONO # 0.3 (0.1-0.6); MONO % 2.7 % (1.0-6.0); RBC 3.77 10^6/uL (3.5-6.1); RED CELL DISTRIBUTION WIDTH 22.9 % (11.5-14.5); WHITE BLOOD COUNT 9.4 10^3/ul (4.5-11.0)
[2018-03-01 06:47] LABS: ALB/GLOB RATIO 0.8 (1.1-1.8); ALBUMIN 2.7 g/dL (3.0-4.8); CALCIUM 6.5 mg/dL (8.4-10.5)
[2018-03-01 06:48] LABS: PLATELET COUNT 48 10^3/uL (120.0-450.0)
--- NOTE | 2018-03-01 11:07 | CP.CCUPN ---
Addendum entered and electronically signed by Nasima Plasencia MD 03/01/18 16:36: MICU ATTENDING: CC Time: 41 mins Original Note: <Aleksander Mayer - Last Filed: 03/01/18 13:26> CCU Subjective - Physician Review Subjective (Free Text): CRITICAL CARE PROGRESS NOTE FOR DR. FERMIN Mayer PGY-1 Pt seen and examined at bedside this am. Pt is less lethargic this am and AxO x 2 this am. He has received 3L NS bolus in ED and currently on 80mls/hr NS. He was placed on levophed overnight for BP control. He reports no acute complaints this am. 12 point ROS was otherwise negative CCU Objective - Vital Signs / Intake & Output Intake and Output (Last 8hrs): Intake & Output 02/28/18 03/01/18 03/01/18 22:59 06:59 14:59 Intake Total 2300 720 Output Total 10 5 Balance 2290 715 Weight 210 lb 218 lb 14.4 oz Intake: IV 2300 720 Right Antecubital 2300 720 Oral 0 Output: Urine 10 5 2-way Urethral 10 5 Other: Voiding Method Urinal - Physical Exam Head: Positive for: Atraumatic, Normocephalic Pupils: Positive for: PERRL Extroacular Muscles: Positive for: EOMI Conjunctiva: Positive for: Normal Mouth: Positive for: Moist Mucous Membranes Neck: Positive for: Normal Range of Motion Respiratory/Chest: Positive for: Clear to Auscultation, Good Air Exchange. Negative for: Respiratory Distress, Accessory Muscle Use Cardiovascular: Positive for: Regular Rate and Rhythm, Normal S1, S2. Negative for: Murmurs Abdomen: Negative for: Tenderness, Distention, Peritoneal Signs Back: Positive for: Normal Inspection, Midline Tenderness, Other (sacral ulcer stage 1; large abrasion noted towards Lumbosacral region) Upper Extremity: Positive for: Normal Inspection, Other (clubbing of fingertips bilaterally). Negative for: Cyanosis, Edema, Capillary Refill < 2s (delayed refill bilaterally) Lower Extremity: Positive for: Edema (+3 bilateral pitting edema), Temperature Abnormalties (feet feel cold Bilaterally), Other (Chronic venous stasis bilaterally) Neurological: Positive for: GCS=15, CN II-XII Intact, Speech Normal Skin: Positive for: Warm, Dry, Normal Color, Other (ecchymosis of bilateral upper extemeties; contusions noted on trunk ). Negative for: Rashes Psychiatric: Positive for: Alert, Oriented x 3, Normal Insight, Normal Concentration - Medications Active Medications: Active Medications Generic Name Dose Route Start Last Admin Trade Name Freq PRN Reason Stop Dose Admin Albuterol/Ipratropium 3 ml 02/28/18 15:43 Duoneb 3 Mg/0.5 Mg (3 Ml) Ud IH [id number] PRN Shortness of Breath Apixaban 2.5 mg 02/28/18 18:00 02/28/18 20:13 Eliquis PO 2.5 mg BID NICO Administration Protocol Clopidogrel Bisulfate 75 mg 03/01/18 10:00 Plavix PO DAILY NICO Sodium Chloride 1,000 mls @ 80 mls/hr 02/28/18 18:29 02/28/18 20:13 Sodium Chloride 0.9% IV 80 mls/hr .[id number] NCIO Administration NOREPINEPHRINE BIT/0.9 % NACL 4 mg in 250 mls @ 7.5 mls/hr 02/28/18 22:58 02/28/18 23:04 Levophed 4 Mg/ 250 Ml Ns Premixed IV 4 mcg/min .Q24H PRN 15 mls/hr TITRATE PER MD ORDER Administration Protocol 2 MCG/MIN Pantoprazole Sodium 40 mg 02/28/18 15:30 03/01/18 10:33 Protonix Inj IVP 40 mg DAILY NICO Administration - Patient Studies Lab Studies: Lab Studies 03/01/18 03/01/18 03/01/18 Range/Units 05:30 05:30 05:30 WBC 9.4 (4.5-11.0) 10^3/ul RBC 3.77 (3.5-6.1) 10^6/uL Hgb 10.6 L (14.0-18.0) g/dL Hct 33.6 L (42.0-52.0) % MCV 89.1 (80.0-105.0) fl MCH 28.1 (25.0-35.0) pg MCHC 31.5 (31.0-37.0) g/dl RDW 22.9 H (11.5-14.5) % Plt Count 48 L* (120.0-450.0) 10^3/uL MPV (7.0-11.0) fl Gran % 92.4 H (50.0-68.0) % Lymph % (Auto) 4.9 L (22.0-35.0) % [place] % (Auto) 2.7 (1.0-6.0) % Eos % (Auto) 0.0 L (1.5-5.0) % Baso % (Auto) 0.0 (0.0-3.0) % Gran # 8.69 H (1.4-6.5) Lymph # (Auto) 0.5 L (1.2-3.4) [place] # (Auto) 0.3 (0.1-0.6) Eos # (Auto) 0.0 (0.0-0.7) Baso # (Auto) 0.00 (0.0-2.0) K/mm3 Neutrophils % (Manual) (50.0-70.0) % Lymphocytes % (Manual) (22.0-35.0) % Monocytes % (Manual) (1.0-6.0) % Platelet Evaluation (NORMAL) Poikilocytosis (manual Ovalocytes Schistocytes PT (9.4-12.5) SECONDS INR APTT (25.1-36.5) Seconds pO2 (30-55) mm/Hg VBG pH (7.32-7.43) VBG pCO2 (40-60) VBG HCO3 (21-28) mmol/l VBG Total CO2 (22-28) mmol.L VBG O2 Sat (Calc) (40-65) % VBG Base Excess (0.0-2.0) mmol/L VBG Potassium (3.6-5.2) mmol/L Sodium 129 L (132-148) mmol/L Chloride 90 L (98-107) mmol/L Glucose (75-110) mg/dl Lactate (0.7-2.1) mmol/L FiO2 % Potassium 5.0 (3.6-5.0) mmol/L Carbon Dioxide 18 L (21-33) mmol/L Anion Gap 26 H (10-20) BUN 132 H* (7-21) mg/dL Creatinine 7.1 H (0.8-1.5) mg/dl Est GFR ( Amer) 9 Est GFR (Non-Af Amer) 7 POC Glucose (mg/dL) (65-110) mg/dL Random Glucose 109 (70-110) mg/dL Uric Acid (3.5-8.5) mg/dL Calcium 6.5 L* (8.4-10.5) mg/dL Phosphorus 8.7 H (2.5-4.5) mg/dL Magnesium 2.2 (1.7-2.2) mg/dL Total Bilirubin 4.4 H (0.2-1.3) mg/dL AST 562 H D (17-59) U/L ALT 328 H (7-56) U/L Alkaline Phosphatase 168 H (38-126) U/L Troponin I 0.48 H* ng/mL NT-Pro-B Natriuret Pep (0-450) pg/mL Total Protein 5.8 (5.8-8.3) g/dL Albumin 2.7 L (3.0-4.8) g/dL Globulin 3.1 gm/dL Albumin/Globulin Ratio 0.8 L (1.1-1.8) Venous Blood Potassium (3.6-5.2) mmol/L Urine Color (YELLOW) Urine Appearance (CLEAR) Urine pH (4.7-8.0) Ur Specific [place] (1.005-1.035) Urine Protein (<30 mg/dL) mg/dL Urine Glucose (UA) (NEGATIVE) mg/dL Urine Ketones (NEGATIVE) mg/dL Urine Blood (NEGATIVE) Urine Nitrate (NEGATIVE) Urine Bilirubin (NEGATIVE) Urine Urobilinogen (<1 E.U./dL) E.U./dL Ur Leukocyte Esterase (NEGATIVE) Ace/uL Urine RBC (0-2) /hpf Urine WBC (0-6) /hpf Ur Epithelial Cells (0-5) /hpf Amorphous Sediment Urine Bacteria (NEG) Coarse Granular Casts (0-2) /hpf Urine Osmolality (300-1000) mosm/kg Ur Random Sodium meq/L 03/01/18 03/01/18 02/28/18 Range/Units 03:33 00:02 21:52 WBC (4.5-11.0) 10^3/ul RBC (3.5-6.1) 10^6/uL Hgb (14.0-18.0) g/dL Hct (42.0-52.0) % MCV (80.0-105.0) fl MCH (25.0-35.0) pg MCHC (31.0-37.0) g/dl RDW (11.5-14.5) % Plt Count (120.0-450.0) 10^3/uL MPV (7.0-11.0) fl Gran % (50.0-68.0) % Lymph % (Auto) (22.0-35.0) % [place] % (Auto) (1.0-6.0) % Eos % (Auto) (1.5-5.0) % Baso % (Auto) (0.0-3.0) % Gran # (1.4-6.5) Lymph # (Auto) (1.2-3.4) [place] # (Auto) (0.1-0.6) Eos # (Auto) (0.0-0.7) Baso # (Auto) (0.0-2.0) K/mm3 Neutrophils % (Manual) (50.0-70.0) % Lymphocytes % (Manual) (22.0-35.0) % Monocytes % (Manual) (1.0-6.0) % Platelet Evaluation (NORMAL) Poikilocytosis (manual Ovalocytes Schistocytes PT (9.4-12.5) SECONDS INR APTT (25.1-36.5) Seconds pO2 32 23 L (30-55) mm/Hg VBG pH 7.30 L 7.27 L (7.32-7.43) VBG pCO2 41.0 41.0 (40-60) VBG HCO3 20.2 L 18.8 L (21-28) mmol/l VBG Total CO2 21.5 L 20.1 L (22-28) mmol.L VBG O2 Sat (Calc) 56.9 34.0 L (40-65) % VBG Base Excess -5.9 L -7.7 L (0.0-2.0) mmol/L VBG Potassium 5.3 H 5.2 (3.6-5.2) mmol/L Sodium 126.0 L 127.0 L (132-148) mmol/L Chloride 88.0 L 89.0 L (98-107) mmol/L Glucose 110 104 (75-110) mg/dl Lactate 3.3 H 5.2 H* (0.7-2.1) mmol/L FiO2 21.0 21.0 % Potassium (3.6-5.0) mmol/L Carbon Dioxide (21-33) mmol/L Anion Gap (10-20) BUN (7-21) mg/dL Creatinine (0.8-1.5) mg/dl Est GFR ( Amer) Est GFR (Non-Af Amer) POC Glucose (mg/dL) 106 (65-110) mg/dL Random Glucose (70-110) mg/dL Uric Acid (3.5-8.5) mg/dL Calcium (8.4-10.5) mg/dL Phosphorus (2.5-4.5) mg/dL Magnesium (1.7-2.2) mg/dL Total Bilirubin (0.2-1.3) mg/dL AST (17-59) U/L ALT (7-56) U/L Alkaline Phosphatase (38-126) U/L Troponin I ng/mL NT-Pro-B Natriuret Pep (0-450) pg/mL Total Protein (5.8-8.3) g/dL Albumin (3.0-4.8) g/dL Globulin gm/dL Albumin/Globulin Ratio (1.1-1.8) Venous Blood Potassium 5.3 H 5.2 (3.6-5.2) mmol/L Urine Color (YELLOW) Urine Appearance (CLEAR) Urine pH (4.7-8.0) Ur Specific [place] (1.005-1.035) Urine Protein (<30 mg/dL) mg/dL Urine Glucose (UA) (NEGATIVE) mg/dL Urine Ketones (NEGATIVE) mg/dL Urine Blood (NEGATIVE) Urine Nitrate (NEGATIVE) Urine Bilirubin (NEGATIVE) Urine Urobilinogen (<1 E.U./dL) E.U./dL Ur Leukocyte Esterase (NEGATIVE) Ace/uL Urine RBC (0-2) /hpf Urine WBC (0-6) /hpf Ur Epithelial Cells (0-5) /hpf Amorphous Sediment Urine Bacteria (NEG) Coarse Granular Casts (0-2) /hpf Urine Osmolality (300-1000) mosm/kg Ur Random Sodium meq/L 02/28/18 02/28/1818 Range/Units 20:30 20:30 19:45 WBC (4.5-11.0) 10^3/ul RBC (3.5-6.1) 10^6/uL Hgb (14.0-18.0) g/dL Hct (42.0-52.0) % MCV (80.0-105.0) fl MCH (25.0-35.0) pg MCHC (31.0-37.0) g/dl RDW (11.5-14.5) % Plt Count (120.0-450.0) 10^3/uL MPV (7.0-11.0) fl Gran % (50.0-68.0) % Lymph % (Auto) (22.0-35.0) % [place] % (Auto) (1.0-6.0) % Eos % (Auto) (1.5-5.0) % Baso % (Auto) (0.0-3.0) % Gran # (1.4-6.5) Lymph # (Auto) (1.2-3.4) [place] # (Auto) (0.1-0.6) Eos # (Auto) (0.0-0.7) Baso # (Auto) (0.0-2.0) K/mm3 Neutrophils % (Manual) (50.0-70.0) % Lymphocytes % (Manual) (22.0-35.0) % Monocytes % (Manual) (1.0-6.0) % Platelet Evaluation (NORMAL) Poikilocytosis (manual Ovalocytes Schistocytes PT (9.4-12.5) SECONDS INR APTT (25.1-36.5) Seconds pO2 (30-55) mm/Hg VBG pH (7.32-7.43) VBG pCO2 (40-60) VBG HCO3 (21-28) mmol/l VBG Total CO2 (22-28) mmol.L VBG O2 Sat (Calc) (40-65) % VBG Base Excess (0.0-2.0) mmol/L VBG Potassium (3.6-5.2) mmol/L Sodium (132-148) mmol/L Chloride (98-107) mmol/L Glucose (75-110) mg/dl Lactate (0.7-2.1) mmol/L FiO2 % Potassium (3.6-5.0) mmol/L Carbon Dioxide (21-33) mmol/L Anion Gap (10-20) BUN (7-21) mg/dL Creatinine (0.8-1.5) mg/dl Est GFR ( Amer) Est GFR (Non-Af Amer) POC Glucose (mg/dL) (65-110) mg/dL Random Glucose (70-110) mg/dL Uric Acid 19.7 H (3.5-8.5) mg/dL Calcium (8.4-10.5) mg/dL Phosphorus (2.5-4.5) mg/dL Magnesium (1.7-2.2) mg/dL Total Bilirubin (0.2-1.3) mg/dL AST (17-59) U/L ALT (7-56) U/L Alkaline Phosphatase (38-126) U/L Troponin I ng/mL NT-Pro-B Natriuret Pep (0-450) pg/mL Total Protein (5.8-8.3) g/dL Albumin (3.0-4.8) g/dL Globulin gm/dL Albumin/Globulin Ratio (1.1-1.8) Venous Blood Potassium (3.6-5.2) mmol/L Urine Color (YELLOW) Urine Appearance (CLEAR) Urine pH (4.7-8.0) Ur Specific [place] (1.005-1.035) Urine Protein (<30 mg/dL) mg/dL Urine Glucose (UA) (NEGATIVE) mg/dL Urine Ketones (NEGATIVE) mg/dL Urine Blood (NEGATIVE) Urine Nitrate (NEGATIVE) Urine Bilirubin (NEGATIVE) Urine Urobilinogen (<1 E.U./dL) E.U./dL Ur Leukocyte Esterase (NEGATIVE) Ace/uL Urine RBC (0-2) /hpf Urine WBC (0-6) /hpf Ur Epithelial Cells (0-5) /hpf Amorphous Sediment Urine Bacteria (NEG) Coarse Granular Casts (0-2) /hpf Urine Osmolality 343 (300-1000) mosm/kg Ur Random Sodium 37 meq/L 02/28/18 02/28/18 02/28/18 Range/Units 19:45 13:30 13:30 WBC (4.5-11.0) 10^3/ul RBC (3.5-6.1) 10^6/uL Hgb (14.0-18.0) g/dL Hct (42.0-52.0) % MCV (80.0-105.0) fl MCH (25.0-35.0) pg MCHC (31.0-37.0) g/dl RDW (11.5-14.5) % Plt Count (120.0-450.0) 10^3/uL MPV (7.0-11.0) fl Gran % (50.0-68.0) % Lymph % (Auto) (22.0-35.0) % [place] % (Auto) (1.0-6.0) % Eos % (Auto) (1.5-5.0) % Baso % (Auto) (0.0-3.0) % Gran # (1.4-6.5) Lymph # (Auto) (1.2-3.4) [place] # (Auto) (0.1-0.6) Eos # (Auto) (0.0-0.7) Baso # (Auto) (0.0-2.0) K/mm3 Neutrophils % (Manual) (50.0-70.0) % Lymphocytes % (Manual) (22.0-35.0) % Monocytes % (Manual) (1.0-6.0) % Platelet Evaluation (NORMAL) Poikilocytosis (manual Ovalocytes Schistocytes PT 29.9 H (9.4-12.5) SECONDS INR 2.55 APTT 34.6 (25.1-36.5) Seconds pO2 36 (30-55) mm/Hg VBG pH 7.23 L (7.32-7.43) VBG pCO2 40.0 (40-60) VBG HCO3 16.8 L (21-28) mmol/l VBG Total CO2 18.0 L (22-28) mmol.L VBG O2 Sat (Calc) 62.3 (40-65) % VBG Base Excess -10.2 L (0.0-2.0) mmol/L VBG Potassium 5.1 (3.6-5.2) mmol/L Sodium 125.0 L (132-148) mmol/L Chloride 86.0 L (98-107) mmol/L Glucose 114 H (75-110) mg/dl Lactate 6.8 H* (0.7-2.1) mmol/L FiO2 21.0 % Potassium (3.6-5.0) mmol/L Carbon Dioxide (21-33) mmol/L Anion Gap (10-20) BUN (7-21) mg/dL Creatinine (0.8-1.5) mg/dl Est GFR ( Amer) Est GFR (Non-Af Amer) POC Glucose (mg/dL) (65-110) mg/dL Random Glucose (70-110) mg/dL Uric Acid (3.5-8.5) mg/dL Calcium (8.4-10.5) mg/dL Phosphorus (2.5-4.5) mg/dL Magnesium (1.7-2.2) mg/dL Total Bilirubin (0.2-1.3) mg/dL AST (17-59) U/L ALT (7-56) U/L Alkaline Phosphatase (38-126) U/L Troponin I ng/mL NT-Pro-B Natriuret Pep (0-450) pg/mL Total Protein (5.8-8.3) g/dL Albumin (3.0-4.8) g/dL Globulin gm/dL Albumin/Globulin Ratio (1.1-1.8) Venous Blood Potassium 5.1 (3.6-5.2) mmol/L Urine Color Yellow (YELLOW) Urine Appearance Sl cloudy (CLEAR) Urine pH 5.5 (4.7-8.0) Ur Specific [place] >= 1.030 (1.005-1.035) Urine Protein >=300 H (<30 mg/dL) mg/dL Urine Glucose (UA) Negative (NEGATIVE) mg/dL Urine Ketones Negative (NEGATIVE) mg/dL Urine Blood Trace-intact H (NEGATIVE) Urine Nitrate Negative (NEGATIVE) Urine Bilirubin Moderate H (NEGATIVE) Urine Urobilinogen 0.2 (<1 E.U./dL) E.U./dL Ur Leukocyte Esterase Trace H (NEGATIVE) Ace/uL Urine RBC 0 - 2 (0-2) /hpf Urine WBC 2 - 5 (0-6) /hpf Ur Epithelial Cells 1 - 3 (0-5) /hpf Amorphous Sediment Small Urine Bacteria Mod (NEG) Coarse Granular Casts Trace H (0-2) /hpf Urine Osmolality (300-1000) mosm/kg Ur Random Sodium meq/L 02/28/18 02/28/18 02/28/18 Range/Units 13:30 13:30 13:30 WBC 8.1 D (4.5-11.0) 10^3/ul RBC 4.12 (3.5-6.1) 10^6/uL Hgb 11.7 L (14.0-18.0) g/dL Hct 37.2 L (42.0-52.0) % MCV 90.3 (80.0-105.0) fl MCH 28.4 (25.0-35.0) pg MCHC 31.5 (31.0-37.0) g/dl RDW 23.1 H (11.5-14.5) % Plt Count 54 L (120.0-450.0) 10^3/uL MPV (7.0-11.0) fl Gran % 90.7 H (50.0-68.0) % Lymph % (Auto) 5.4 L (22.0-35.0) % [place] % (Auto) 3.9 (1.0-6.0) % Eos % (Auto) 0.0 L (1.5-5.0) % Baso % (Auto) 0.0 (0.0-3.0) % Gran # 7.38 H (1.4-6.5) Lymph # (Auto) 0.4 L (1.2-3.4) [place] # (Auto) 0.3 (0.1-0.6) Eos # (Auto) 0.0 (0.0-0.7) Baso # (Auto) 0.00 (0.0-2.0) K/mm3 Neutrophils % (Manual) 91 H (50.0-70.0) % Lymphocytes % (Manual) 6 L (22.0-35.0) % Monocytes % (Manual) 3 (1.0-6.0) % Platelet Evaluation Low (NORMAL) Poikilocytosis (manual 2+ Ovalocytes Slight Schistocytes Moderate PT (9.4-12.5) SECONDS INR APTT (25.1-36.5) Seconds pO2 49 (30-55) mm/Hg VBG pH 7.32 (7.32-7.43) VBG pCO2 41.0 (40-60) VBG HCO3 21.1 (21-28) mmol/l VBG Total CO2 22.4 (22-28) mmol.L VBG O2 Sat (Calc) 82.6 H (40-65) % VBG Base Excess -4.8 L (0.0-2.0) mmol/L VBG Potassium 6.1 H (3.6-5.2) mmol/L Sodium 128 L 124.0 L (132-148) mmol/L Chloride 85 L 84.0 L (98-107) mmol/L Glucose 146 H (75-110) mg/dl Lactate 3.7 H (0.7-2.1) mmol/L FiO2 21.0 % Potassium 4.7 (3.6-5.0) mmol/L Carbon Dioxide 20 L (21-33) mmol/L Anion Gap 28 H (10-20) BUN 132 H* (7-21) mg/dL Creatinine 7.2 H (0.8-1.5) mg/dl Est GFR ( Amer) 9 Est GFR (Non-Af Amer) 7 POC Glucose (mg/dL) (65-110) mg/dL Random Glucose 141 H (70-110) mg/dL Uric Acid (3.5-8.5) mg/dL Calcium 7.4 L (8.4-10.5) mg/dL Phosphorus (2.5-4.5) mg/dL Magnesium 2.4 H (1.7-2.2) mg/dL Total Bilirubin 4.5 H (0.2-1.3) mg/dL AST 423 H D (17-59) U/L ALT 300 H (7-56) U/L Alkaline Phosphatase 201 H D (38-126) U/L Troponin I 0.57 H* D ng/mL NT-Pro-B Natriuret Pep > 19779 H (0-450) pg/mL Total Protein 6.8 (5.8-8.3) g/dL Albumin 3.1 (3.0-4.8) g/dL Globulin 3.6 gm/dL Albumin/Globulin Ratio 0.9 L (1.1-1.8) Venous Blood Potassium 6.1 H (3.6-5.2) mmol/L Urine Color (YELLOW) Urine Appearance (CLEAR) Urine pH (4.7-8.0) Ur Specific [place] (1.005-1.035) Urine Protein (<30 mg/dL) mg/dL Urine Glucose (UA) (NEGATIVE) mg/dL Urine Ketones (NEGATIVE) mg/dL Urine Blood (NEGATIVE) Urine Nitrate (NEGATIVE) Urine Bilirubin (NEGATIVE) Urine Urobilinogen (<1 E.U./dL) E.U./dL Ur Leukocyte Esterase (NEGATIVE) Ace/uL Urine RBC (0-2) /hpf Urine WBC (0-6) /hpf Ur Epithelial Cells (0-5) /hpf Amorphous Sediment Urine Bacteria (NEG) Coarse Granular Casts (0-2) /hpf Urine Osmolality (300-1000) mosm/kg Ur Random Sodium meq/L Laboratory Results - last 24 hr 02/28/18 02/28/18 02/28/18 13:30 13:30 13:30 WBC 8.1 D RBC 4.12 Hgb 11.7 L Hct 37.2 L MCV 90.3 MCH 28.4 MCHC 31.5 RDW 23.1 H Plt Count 54 L MPV Gran % 90.7 H Lymph % (Auto) 5.4 L [place] % (Auto) 3.9 Eos % (Auto) 0.0 L Baso % (Auto) 0.0 Gran # 7.38 H Lymph # (Auto) 0.4 L [place] # (Auto) 0.3 Eos # (Auto) 0.0 Baso # (Auto) 0.00 Neutrophils % (Manual) 91 H Lymphocytes % (Manual) 6 L Monocytes % (Manual) 3 Platelet Evaluation Low Poikilocytosis (manual 2+ Ovalocytes Slight Schistocytes Moderate PT INR APTT pO2 49 VBG pH 7.32 VBG pCO2 41.0 VBG HCO3 21.1 VBG Total CO2 22.4 VBG O2 Sat (Calc) 82.6 H VBG Base Excess -4.8 L VBG Potassium 6.1 H Sodium 124.0 L 128 L Chloride 84.0 L 85 L Glucose 146 H Lactate 3.7 H FiO2 21.0 Potassium 4.7 Carbon Dioxide 20 L Anion Gap 28 H BUN 132 H* Creatinine 7.2 H Est GFR ( Amer) 9 Est GFR (Non-Af Amer) 7 POC Glucose (mg/dL) Random Glucose 141 H Uric Acid Calcium 7.4 L Phosphorus Magnesium 2.4 H Total Bilirubin 4.5 H AST 423 H D ALT 300 H Alkaline Phosphatase 201 H D Troponin I 0.57 H* D NT-Pro-B Natriuret Pep > 77750 H Total Protein 6.8 Albumin 3.1 Globulin 3.6 Albumin/Globulin Ratio 0.9 L Venous Blood Potassium 6.1 H Urine Color Urine Appearance Urine pH Ur Specific [place] Urine Protein Urine Glucose (UA) Urine Ketones Urine Blood Urine Nitrate Urine Bilirubin Urine Urobilinogen Ur Leukocyte Esterase Urine RBC Urine WBC Ur Epithelial Cells Amorphous Sediment Urine Bacteria Coarse Granular Casts Urine Osmolality Ur Random Sodium 02/28/18 02/28/18 02/28/18 13:30 13:30 19:45 WBC RBC Hgb Hct MCV MCH MCHC RDW Plt Count MPV Gran % Lymph % (Auto) [place] % (Auto) Eos % (Auto) Baso % (Auto) Gran # Lymph # (Auto) [place] # (Auto) Eos # (Auto) Baso # (Auto) Neutrophils % (Manual) Lymphocytes % (Manual) Monocytes % (Manual) Platelet Evaluation Poikilocytosis (manual Ovalocytes Schistocytes PT 29.9 H INR 2.55 APTT 34.6 pO2 36 VBG pH 7.23 L VBG pCO2 40.0 VBG HCO3 16.8 L VBG Total CO2 18.0 L VBG O2 Sat (Calc) 62.3 VBG Base Excess -10.2 L VBG Potassium 5.1 Sodium 125.0 L Chloride 86.0 L Glucose 114 H Lactate 6.8 H* FiO2 21.0 Potassium Carbon Dioxide Anion Gap BUN Creatinine Est GFR ( Amer) Est GFR (Non-Af Amer) POC Glucose (mg/dL) Random Glucose Uric Acid Calcium Phosphorus Magnesium Total Bilirubin AST ALT Alkaline Phosphatase Troponin I NT-Pro-B Natriuret Pep Total Protein Albumin Globulin Albumin/Globulin Ratio Venous Blood Potassium 5.1 Urine Color Yellow Urine Appearance Sl cloudy Urine pH 5.5 Ur Specific [place] >= 1.030 Urine Protein >=300 H Urine Glucose (UA) Negative Urine Ketones Negative Urine Blood Trace-intact H Urine Nitrate Negative Urine Bilirubin Moderate H Urine Urobilinogen 0.2 Ur Leukocyte Esterase Trace H Urine RBC 0 - 2 Urine WBC 2 - 5 Ur Epithelial Cells 1 - 3 Amorphous Sediment Small Urine Bacteria Mod Coarse Granular Casts Trace H Urine Osmolality Ur Random Sodium 02/28/18 02/28/18 02/28/18 19:45 20:30 20:30 WBC RBC Hgb Hct MCV MCH MCHC RDW Plt Count MPV Gran % Lymph % (Auto) [place] % (Auto) Eos % (Auto) Baso % (Auto) Gran # Lymph # (Auto) [place] # (Auto) Eos # (Auto) Baso # (Auto) Neutrophils % (Manual) Lymphocytes % (Manual) Monocytes % (Manual) Platelet Evaluation Poikilocytosis (manual Ovalocytes Schistocytes PT INR APTT pO2 VBG pH VBG pCO2 VBG HCO3 VBG Total CO2 VBG O2 Sat (Calc) VBG Base Excess VBG Potassium Sodium Chloride Glucose Lactate FiO2 Potassium Carbon Dioxide Anion Gap BUN Creatinine Est GFR ( Amer) Est GFR (Non-Af Amer) POC Glucose (mg/dL) Random Glucose Uric Acid 19.7 H Calcium Phosphorus Magnesium Total Bilirubin AST ALT Alkaline Phosphatase Troponin I NT-Pro-B Natriuret Pep Total Protein Albumin Globulin Albumin/Globulin Ratio Venous Blood Potassium Urine Color Urine Appearance Urine pH Ur Specific [place] Urine Protein Urine Glucose (UA) Urine Ketones Urine Blood Urine Nitrate Urine Bilirubin Urine Urobilinogen Ur Leukocyte Esterase Urine RBC Urine WBC Ur Epithelial Cells Amorphous Sediment Urine Bacteria Coarse Granular Casts Urine Osmolality 343 Ur Random Sodium 37 02/28/18 03/01/18 03/01/18 21:52 00:02 03:33 WBC RBC Hgb Hct MCV MCH MCHC RDW Plt Count MPV Gran % Lymph % (Auto) [place] % (Auto) Eos % (Auto) Baso % (Auto) Gran # Lymph # (Auto) [place] # (Auto) Eos # (Auto) Baso # (Auto) Neutrophils % (Manual) Lymphocytes % (Manual) Monocytes % (Manual) Platelet Evaluation Poikilocytosis (manual Ovalocytes Schistocytes PT INR APTT pO2 23 L 32 VBG pH 7.27 L 7.30 L VBG pCO2 41.0 41.0 VBG HCO3 18.8 L 20.2 L VBG Total CO2 20.1 L 21.5 L VBG O2 Sat (Calc) 34.0 L 56.9 VBG Base Excess -7.7 L -5.9 L VBG Potassium 5.2 5.3 H Sodium 127.0 L 126.0 L Chloride 89.0 L 88.0 L Glucose 104 110 Lactate 5.2 H* 3.3 H FiO2 21.0 21.0 Potassium Carbon Dioxide Anion Gap BUN Creatinine Est GFR ( Amer) Est GFR (Non-Af Amer) POC Glucose (mg/dL) 106 Random Glucose Uric Acid Calcium Phosphorus Magnesium Total Bilirubin AST ALT Alkaline Phosphatase Troponin I NT-Pro-B Natriuret Pep Total Protein Albumin Globulin Albumin/Globulin Ratio Venous Blood Potassium 5.2 5.3 H Urine Color Urine Appearance Urine pH Ur Specific [place] Urine Protein Urine Glucose (UA) Urine Ketones Urine Blood Urine Nitrate Urine Bilirubin Urine Urobilinogen Ur Leukocyte Esterase Urine RBC Urine WBC Ur Epithelial Cells Amorphous Sediment Urine Bacteria Coarse Granular Casts Urine Osmolality Ur Random Sodium 03/01/18 03/01/18 03/01/18 05:30 05:30 05:30 WBC 9.4 RBC 3.77 Hgb 10.6 L Hct 33.6 L MCV 89.1 MCH 28.1 MCHC 31.5 RDW 22.9 H Plt Count 48 L* MPV Gran % 92.4 H Lymph % (Auto) 4.9 L [place] % (Auto) 2.7 Eos % (Auto) 0.0 L Baso % (Auto) 0.0 Gran # 8.69 H Lymph # (Auto) 0.5 L [place] # (Auto) 0.3 Eos # (Auto) 0.0 Baso # (Auto) 0.00 Neutrophils % (Manual) Lymphocytes % (Manual) Monocytes % (Manual) Platelet Evaluation Poikilocytosis (manual Ovalocytes Schistocytes PT INR APTT pO2 VBG pH VBG pCO2 VBG HCO3 VBG Total CO2 VBG O2 Sat (Calc) VBG Base Excess VBG Potassium Sodium 129 L Chloride 90 L Glucose Lactate FiO2 Potassium 5.0 Carbon Dioxide 18 L Anion Gap 26 H BUN 132 H* Creatinine 7.1 H Est GFR ( Amer) 9 Est GFR (Non-Af Amer) 7 POC Glucose (mg/dL) Random Glucose 109 Uric Acid Calcium 6.5 L* Phosphorus 8.7 H Magnesium 2.2 Total Bilirubin 4.4 H AST 562 H D ALT 328 H Alkaline Phosphatase 168 H Troponin I 0.48 H* NT-Pro-B Natriuret Pep Total Protein 5.8 Albumin 2.7 L Globulin 3.1 Albumin/Globulin Ratio 0.8 L Venous Blood Potassium Urine Color Urine Appearance Urine pH Ur Specific [place] Urine Protein Urine Glucose (UA) Urine Ketones Urine Blood Urine Nitrate Urine Bilirubin Urine Urobilinogen Ur Leukocyte Esterase Urine RBC Urine WBC Ur Epithelial Cells Amorphous Sediment Urine Bacteria Coarse Granular Casts Urine Osmolality Ur Random Sodium EKG/Cardiology Studies: Cardiology / EKG Studies 02/28/18 12:49 EKG [ELECTROCARDIOGRAM] Stat Comment: Reason For Exam: FALL Review of Systems - Review of Systems Review of Systems: per HPI Assessment/Plan - Assessment and Plan (Free Text) Assessment: 88 y/o M with PMHx of CHF with last known EF 24%, pulmonary HTN, R heart failure, CKD4, CAD s/p cath 01/2018 [place] [facility] of [place] pain after a [place]. He was subsequently found in ED to have 3+ b/l LE pitting edema as well as several lab abnormalities including hyponatremia, ABISAI on CKD, elevated LFTs, elevated t. Buzz, elevated troponin, elevated BNP and lactic acidosis. He was admitted to ICU for hypotension non-responsive to fluid resuscitation. Plan: Neuro: AxO x 2 GCS 15 No FND Reorient as necessary Cardiovascular: Multiorgan dysfunction likely secondary to R sided heart failure CHF: Echo (01/2018): LVEF 24% with severe pulm HTN and mod-severe TR Elevated BNP Hypotensive Currently on norepinephrine 4mcg/min Lactic acidosis Troponins downtrending HR stable Received 3L fluid bolus in ED, 80mls/hour overnight Discontinue fluids Consider starting milrinone/dobutamine? f/u cardiology recs Maintain MAP >65 Strict I&Os Daily Weights Pulm: Chest xray shows b/l pleural effusions CTA on exam ABG showing lactic acidosis, likely secondary to R heart failure Saturating well on NC GI: Elevated LFTs likely secondary to R heart failure Monitor I&Os /Renal: White catheter in place, minimal urine output Acute on CKD4 Discontinue fluids U/a showing >300 protein. Trace leuk esterase f/u urine electrolytes/osmolality. Serum uric acid. f/u renal ultrasound Strict I&Os f/u Nephrology recs Endo: Glucose well controlled maintain euglycemia Heme: H/H stable No signs of active bleeding No leukocytosis Thrombocytopenia ID: Received dose of cipro, vancomycin and aztreonam Afebrile, no leukocytosis f/u [place] Currently not on antbiotics DVT/GI PPx: Eliquis/protonix Dispo: Meet with palliative care regarding further care. Monitor in ICU closely Case seen, examined and discussed with attending physician <Nasima Plasencia - Last Filed: 03/01/18 16:35> CCU Objective - Vital Signs / Intake & Output Intake and Output (Last 8hrs): Intake & Output 03/01/18 03/01/18 03/01/18 06:59 14:59 22:59 Intake Total 720 Output Total 5 Balance 715 Weight 99.291 kg Intake: IV 720 Right Antecubital 720 Oral 0 Output: Urine 5 2-way Urethral 5 - Medications Active Medications: Active Medications Generic Name Dose Route Start Last Admin Trade Name Freq PRN Reason Stop Dose Admin Albuterol/Ipratropium 3 ml 02/28/18 15:43 Duoneb 3 Mg/0.5 Mg (3 Ml) Ud IH [id number] PRN Shortness of Breath Apixaban 2.5 mg 02/28/18 18:00 03/01/18 13:14 Eliquis PO Not Given BID [facility] Protocol Clopidogrel Bisulfate 75 mg 03/01/18 10:00 03/01/18 13:15 Plavix PO Not Given DAILY [facility] NOREPINEPHRINE BIT/0.9 % NACL 4 mg in 250 mls @ 7.5 mls/hr 02/28/18 22:58 02/28/18 23:04 Levophed 4 Mg/ 250 Ml Ns Premixed IV 4 mcg/min .Q24H PRN 15 mls/hr TITRATE PER MD ORDER Administration Protocol 2 MCG/MIN Pantoprazole Sodium 40 mg 02/28/18 15:30 03/01/18 10:33 Protonix Inj IVP 40 mg DAILY [facility] Administration - Patient Studies Lab Studies: Microbiology Studies 02/28/18 13:30 Blood Culture - Preliminary Blood NO GROWTH AFTER 24 HOURS 02/28/18 13:00 Blood Culture - Preliminary Blood NO GROWTH AFTER 24 HOURS Lab Studies 03/01/18 03/01/18 03/01/18 Range/Units 15:22 05:30 05:30 WBC (4.5-11.0) 10^3/ul RBC (3.5-6.1) 10^6/uL Hgb (14.0-18.0) g/dL Hct (42.0-52.0) % MCV (80.0-105.0) fl MCH (25.0-35.0) pg MCHC (31.0-37.0) g/dl RDW (11.5-14.5) % Plt Count (120.0-450.0) 10^3/uL MPV (7.0-11.0) fl Gran % (50.0-68.0) % Lymph % (Auto) (22.0-35.0) % [place] % (Auto) (1.0-6.0) % Eos % (Auto) (1.5-5.0) % Baso % (Auto) (0.0-3.0) % Gran # (1.4-6.5) Lymph # (Auto) (1.2-3.4) [place] # (Auto) (0.1-0.6) Eos # (Auto) (0.0-0.7) Baso # (Auto) (0.0-2.0) K/mm3 PT 31.4 H (9.4-12.5) SECONDS INR 2.70 APTT 34.3 (25.1-36.5) Seconds pO2 (30-55) mm/Hg VBG pH (7.32-7.43) VBG pCO2 (40-60) VBG HCO3 (21-28) mmol/l VBG Total CO2 (22-28) mmol.L VBG O2 Sat (Calc) (40-65) % VBG Base Excess (0.0-2.0) mmol/L VBG Potassium (3.6-5.2) mmol/L Sodium 129 L (132-148) mmol/L Chloride 90 L (98-107) mmol/L Glucose (75-110) mg/dl Lactate (0.7-2.1) mmol/L FiO2 % Potassium 5.0 (3.6-5.0) mmol/L Carbon Dioxide 18 L (21-33) mmol/L Anion Gap 26 H (10-20) BUN 132 H* (7-21) mg/dL Creatinine 7.1 H (0.8-1.5) mg/dl Est GFR ( Amer) 9 Est GFR (Non-Af Amer) 7 POC Glucose (mg/dL) (65-110) mg/dL Random Glucose 109 (70-110) mg/dL Uric Acid (3.5-8.5) mg/dL Calcium 6.5 L* (8.4-10.5) mg/dL Phosphorus 8.7 H (2.5-4.5) mg/dL Magnesium 2.2 (1.7-2.2) mg/dL Total Bilirubin 4.4 H (0.2-1.3) mg/dL AST 562 H D (17-59) U/L ALT 328 H (7-56) U/L Alkaline Phosphatase 168 H (38-126) U/L Troponin I 0.48 H* ng/mL Total Protein 5.8 (5.8-8.3) g/dL Albumin 2.7 L (3.0-4.8) g/dL Globulin 3.1 gm/dL Albumin/Globulin Ratio 0.8 L (1.1-1.8) Procalcitonin (0.19-0.49) NG/ML Venous Blood Potassium (3.6-5.2) mmol/L Urine Osmolality (300-1000) mosm/kg Ur Random Sodium meq/L 03/01/18 03/01/18 03/01/18 Range/Units 05:30 03:33 00:02 WBC 9.4 (4.5-11.0) 10^3/ul RBC 3.77 (3.5-6.1) 10^6/uL Hgb 10.6 L (14.0-18.0) g/dL Hct 33.6 L (42.0-52.0) % MCV 89.1 (80.0-105.0) fl MCH 28.1 (25.0-35.0) pg MCHC 31.5 (31.0-37.0) g/dl RDW 22.9 H (11.5-14.5) % Plt Count 48 L* (120.0-450.0) 10^3/uL MPV (7.0-11.0) fl Gran % 92.4 H (50.0-68.0) % Lymph % (Auto) 4.9 L (22.0-35.0) % [place] % (Auto) 2.7 (1.0-6.0) % Eos % (Auto) 0.0 L (1.5-5.0) % Baso % (Auto) 0.0 (0.0-3.0) % Gran # 8.69 H (1.4-6.5) Lymph # (Auto) 0.5 L (1.2-3.4) [place] # (Auto) 0.3 (0.1-0.6) Eos # (Auto) 0.0 (0.0-0.7) Baso # (Auto) 0.00 (0.0-2.0) K/mm3 PT (9.4-12.5) SECONDS INR APTT (25.1-36.5) Seconds pO2 32 23 L (30-55) mm/Hg VBG pH 7.30 L 7.27 L (7.32-7.43) VBG pCO2 41.0 41.0 (40-60) VBG HCO3 20.2 L 18.8 L (21-28) mmol/l VBG Total CO2 21.5 L 20.1 L (22-28) mmol.L VBG O2 Sat (Calc) 56.9 34.0 L (40-65) % VBG Base Excess -5.9 L -7.7 L (0.0-2.0) mmol/L VBG Potassium 5.3 H 5.2 (3.6-5.2) mmol/L Sodium 126.0 L 127.0 L (132-148) mmol/L Chloride 88.0 L 89.0 L (98-107) mmol/L Glucose 110 104 (75-110) mg/dl Lactate 3.3 H 5.2 H* (0.7-2.1) mmol/L FiO2 21.0 21.0 % Potassium (3.6-5.0) mmol/L Carbon Dioxide (21-33) mmol/L Anion Gap (10-20) BUN (7-21) mg/dL Creatinine (0.8-1.5) mg/dl Est GFR ( Amer) Est GFR (Non-Af Amer) POC Glucose (mg/dL) (65-110) mg/dL Random Glucose (70-110) mg/dL Uric Acid (3.5-8.5) mg/dL Calcium (8.4-10.5) mg/dL Phosphorus (2.5-4.5) mg/dL Magnesium (1.7-2.2) mg/dL Total Bilirubin (0.2-1.3) mg/dL AST (17-59) U/L ALT (7-56) U/L Alkaline Phosphatase (38-126) U/L Troponin I ng/mL Total Protein (5.8-8.3) g/dL Albumin (3.0-4.8) g/dL Globulin gm/dL Albumin/Globulin Ratio (1.1-1.8) Procalcitonin (0.19-0.49) NG/ML Venous Blood Potassium 5.3 H 5.2 (3.6-5.2) mmol/L Urine Osmolality (300-1000) mosm/kg Ur Random Sodium meq/L 02/28/18 02/28/18 02/28/18 Range/Units 21:52 20:30 20:30 WBC (4.5-11.0) 10^3/ul RBC (3.5-6.1) 10^6/uL Hgb (14.0-18.0) g/dL Hct (42.0-52.0) % MCV (80.0-105.0) fl MCH (25.0-35.0) pg MCHC (31.0-37.0) g/dl RDW (11.5-14.5) % Plt Count (120.0-450.0) 10^3/uL MPV (7.0-11.0) fl Gran % (50.0-68.0) % Lymph % (Auto) (22.0-35.0) % [place] % (Auto) (1.0-6.0) % Eos % (Auto) (1.5-5.0) % Baso % (Auto) (0.0-3.0) % Gran # (1.4-6.5) Lymph # (Auto) (1.2-3.4) [place] # (Auto) (0.1-0.6) Eos # (Auto) (0.0-0.7) Baso # (Auto) (0.0-2.0) K/mm3 PT (9.4-12.5) SECONDS INR APTT (25.1-36.5) Seconds pO2 (30-55) mm/Hg VBG pH (7.32-7.43) VBG pCO2 (40-60) VBG HCO3 (21-28) mmol/l VBG Total CO2 (22-28) mmol.L VBG O2 Sat (Calc) (40-65) % VBG Base Excess (0.0-2.0) mmol/L VBG Potassium (3.6-5.2) mmol/L Sodium (132-148) mmol/L Chloride (98-107) mmol/L Glucose (75-110) mg/dl Lactate (0.7-2.1) mmol/L FiO2 % Potassium (3.6-5.0) mmol/L Carbon Dioxide (21-33) mmol/L Anion Gap (10-20) BUN (7-21) mg/dL Creatinine (0.8-1.5) mg/dl Est GFR ( Amer) Est GFR (Non-Af Amer) POC Glucose (mg/dL) 106 (65-110) mg/dL Random Glucose (70-110) mg/dL Uric Acid (3.5-8.5) mg/dL Calcium (8.4-10.5) mg/dL Phosphorus (2.5-4.5) mg/dL Magnesium (1.7-2.2) mg/dL Total Bilirubin (0.2-1.3) mg/dL AST (17-59) U/L ALT (7-56) U/L Alkaline Phosphatase (38-126) U/L Troponin I ng/mL Total Protein (5.8-8.3) g/dL Albumin (3.0-4.8) g/dL Globulin gm/dL Albumin/Globulin Ratio (1.1-1.8) Procalcitonin (0.19-0.49) NG/ML Venous Blood Potassium (3.6-5.2) mmol/L Urine Osmolality 343 (300-1000) mosm/kg Ur Random Sodium 37 meq/L 02/28/18 02/28/18 02/28/18 Range/Units 19:45 19:45 19:45 WBC (4.5-11.0) 10^3/ul RBC (3.5-6.1) 10^6/uL Hgb (14.0-18.0) g/dL Hct (42.0-52.0) % MCV (80.0-105.0) fl MCH (25.0-35.0) pg MCHC (31.0-37.0) g/dl RDW (11.5-14.5) % Plt Count (120.0-450.0) 10^3/uL MPV (7.0-11.0) fl Gran % (50.0-68.0) % Lymph % (Auto) (22.0-35.0) % [place] % (Auto) (1.0-6.0) % Eos % (Auto) (1.5-5.0) % Baso % (Auto) (0.0-3.0) % Gran # (1.4-6.5) Lymph # (Auto) (1.2-3.4) [place] # (Auto) (0.1-0.6) Eos # (Auto) (0.0-0.7) Baso # (Auto) (0.0-2.0) K/mm3 PT (9.4-12.5) SECONDS INR APTT (25.1-36.5) Seconds pO2 36 (30-55) mm/Hg VBG pH 7.23 L (7.32-7.43) VBG pCO2 40.0 (40-60) VBG HCO3 16.8 L (21-28) mmol/l VBG Total CO2 18.0 L (22-28) mmol.L VBG O2 Sat (Calc) 62.3 (40-65) % VBG Base Excess -10.2 L (0.0-2.0) mmol/L VBG Potassium 5.1 (3.6-5.2) mmol/L Sodium 125.0 L (132-148) mmol/L Chloride 86.0 L (98-107) mmol/L Glucose 114 H (75-110) mg/dl Lactate 6.8 H* (0.7-2.1) mmol/L FiO2 21.0 % Potassium (3.6-5.0) mmol/L Carbon Dioxide (21-33) mmol/L Anion Gap (10-20) BUN (7-21) mg/dL Creatinine (0.8-1.5) mg/dl Est GFR ( Amer) Est GFR (Non-Af Amer) POC Glucose (mg/dL) (65-110) mg/dL Random Glucose (70-110) mg/dL Uric Acid 19.7 H (3.5-8.5) mg/dL Calcium (8.4-10.5) mg/dL Phosphorus (2.5-4.5) mg/dL Magnesium (1.7-2.2) mg/dL Total Bilirubin (0.2-1.3) mg/dL AST (17-59) U/L ALT (7-56) U/L Alkaline Phosphatase (38-126) U/L Troponin I ng/mL Total Protein (5.8-8.3) g/dL Albumin (3.0-4.8) g/dL Globulin gm/dL Albumin/Globulin Ratio (1.1-1.8) Procalcitonin 1.17 H (0.19-0.49) NG/ML Venous Blood Potassium 5.1 (3.6-5.2) mmol/L Urine Osmolality (300-1000) mosm/kg Ur Random Sodium meq/L Laboratory Results - last 24 hr 02/28/18 02/28/18 02/28/18 19:45 19:45 19:45 WBC RBC Hgb Hct MCV MCH MCHC RDW Plt Count MPV Gran % Lymph % (Auto) [place] % (Auto) Eos % (Auto) Baso % (Auto) Gran # Lymph # (Auto) [place] # (Auto) Eos # (Auto) Baso # (Auto) PT INR APTT pO2 36 VBG pH 7.23 L VBG pCO2 40.0 VBG HCO3 16.8 L VBG Total CO2 18.0 L VBG O2 Sat (Calc) 62.3 VBG Base Excess -10.2 L VBG Potassium 5.1 Sodium 125.0 L Chloride 86.0 L Glucose 114 H Lactate 6.8 H* FiO2 21.0 Potassium Carbon Dioxide Anion Gap BUN Creatinine Est GFR ( Amer) Est GFR (Non-Af Amer) POC Glucose (mg/dL) Random Glucose Uric Acid 19.7 H Calcium Phosphorus Magnesium Total Bilirubin AST ALT Alkaline Phosphatase Troponin I Total Protein Albumin Globulin Albumin/Globulin Ratio Procalcitonin 1.17 H Venous Blood Potassium 5.1 Urine Osmolality Ur Random Sodium 02/28/18 02/28/18 02/28/18 20:30 20:30 21:52 WBC RBC Hgb Hct MCV MCH MCHC RDW Plt Count MPV Gran % Lymph % (Auto) [place] % (Auto) Eos % (Auto) Baso % (Auto) Gran # Lymph # (Auto) [place] # (Auto) Eos # (Auto) Baso # (Auto) PT INR APTT pO2 VBG pH VBG pCO2 VBG HCO3 VBG Total CO2 VBG O2 Sat (Calc) VBG Base Excess VBG Potassium Sodium Chloride Glucose Lactate FiO2 Potassium Carbon Dioxide Anion Gap BUN Creatinine Est GFR ( Amer) Est GFR (Non-Af Amer) POC Glucose (mg/dL) 106 Random Glucose Uric Acid Calcium Phosphorus Magnesium Total Bilirubin AST ALT Alkaline Phosphatase Troponin I Total Protein Albumin Globulin Albumin/Globulin Ratio Procalcitonin Venous Blood Potassium Urine Osmolality 343 Ur Random Sodium 37 03/01/18 03/01/18 03/01/18 00:02 03:33 05:30 WBC 9.4 RBC 3.77 Hgb 10.6 L Hct 33.6 L MCV 89.1 MCH 28.1 MCHC 31.5 RDW 22.9 H Plt Count 48 L* MPV Gran % 92.4 H Lymph % (Auto) 4.9 L [place] % (Auto) 2.7 Eos % (Auto) 0.0 L Baso % (Auto) 0.0 Gran # 8.69 H Lymph # (Auto) 0.5 L [place] # (Auto) 0.3 Eos # (Auto) 0.0 Baso # (Auto) 0.00 PT INR APTT pO2 23 L 32 VBG pH 7.27 L 7.30 L VBG pCO2 41.0 41.0 VBG HCO3 18.8 L 20.2 L VBG Total CO2 20.1 L 21.5 L VBG O2 Sat (Calc) 34.0 L 56.9 VBG Base Excess -7.7 L -5.9 L VBG Potassium 5.2 5.3 H Sodium 127.0 L 126.0 L Chloride 89.0 L 88.0 L Glucose 104 110 Lactate 5.2 H* 3.3 H FiO2 21.0 21.0 Potassium Carbon Dioxide Anion Gap BUN Creatinine Est GFR ( Amer) Est GFR (Non-Af Amer) POC Glucose (mg/dL) Random Glucose Uric Acid Calcium Phosphorus Magnesium Total Bilirubin AST ALT Alkaline Phosphatase Troponin I Total Protein Albumin Globulin Albumin/Globulin Ratio Procalcitonin Venous Blood Potassium 5.2 5.3 H Urine Osmolality Ur Random Sodium 03/01/18 03/01/1803/01/18 05:30 05:30 15:22 WBC RBC Hgb Hct MCV MCH MCHC RDW Plt Count MPV Gran % Lymph % (Auto) [place] % (Auto) Eos % (Auto) Baso % (Auto) Gran # Lymph # (Auto) [place] # (Auto) Eos # (Auto) Baso # (Auto) PT 31.4 H INR 2.70 APTT 34.3 pO2 VBG pH VBG pCO2 VBG HCO3 VBG Total CO2 VBG O2 Sat (Calc) VBG Base Excess VBG Potassium Sodium 129 L Chloride 90 L Glucose Lactate FiO2 Potassium 5.0 Carbon Dioxide 18 L Anion Gap 26 H BUN 132 H* Creatinine 7.1 H Est GFR ( Amer) 9 Est GFR (Non-Af Amer) 7 POC Glucose (mg/dL) Random Glucose 109 Uric Acid Calcium 6.5 L* Phosphorus 8.7 H Magnesium 2.2 Total Bilirubin 4.4 H AST 562 H D ALT 328 H Alkaline Phosphatase 168 H Troponin I 0.48 H* Total Protein 5.8 Albumin 2.7 L Globulin 3.1 Albumin/Globulin Ratio 0.8 L Procalcitonin Venous Blood Potassium Urine Osmolality Ur Random Sodium Addendum Addendum: 03/01/18 16:35 ICU Attending Addendum Patient seen and examined. Case reviewed on round with housestaff. Agree with resident note above with the following additions/exceptions: 88M with CHF (EF 24%), pHTN, CKD, CAD admitted in shock. Unlikely septic shock given lack of fever, no leukocytosis, no obv source. Not on empiric abx. Unlikely CHF exasc given benign pulm exam and lack of pulm edema. 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 He rec'd 3L IVF and still is requiring pressors. He did not going to florid heart failure which I would expect with his low EF. This implies that the blood on the right side backflowing causing edema and hepatic congestion. No urine output, renal on board. Refusing HD. Will check US renal to ensure no obstruction. To aid his forward flow will add dobutamine with levophed. Cont white. no more fluids. may trial lasix. Pal care eval as well rest of care above Nasima Plasencia MD [facility]
--- NOTE | 2018-03-01 11:35 | US ---
Date of service: 02/28/2018 PROCEDURE: HISTORY: allie COMPARISON: TECHNIQUE: FINDINGS: The right left kidney measure 8.9 and 7.8 centimeters respectively. Bilateral renal cysts are noted measuring 1.6 centimeters in the right lower pole and 2.6 centimeters in the left lower pole. No gross renal mass. No hydronephrosis. IMPRESSION: Bilateral renal cysts.
--- NOTE | 2018-03-01 13:44 | CP.PCM.CON ---
History of Present Illness - History of Present Illness History of Present Illness: Palliative consult requested by Hernan Plasencia Copied to Dr Joycelyn Antonio Goals of care 88 year old male with history of A Fib, triple vessel disease, LVD, pulmonary HTN, CKD who presented with weakness, slurred speech,decreased appetite,swelling of lower extremities and shortness of breath. Family reports he had a fall with put injury at home the day prior. Family denied nausea, vomiting fever, chills, chest/abdominal pain or headache> He was found to be hypotenuse on arrival to ED. Labs 02/28: Wbc 8.1, Hgb 11.7, Plt 54, NA 128, K 4.7, Chl 85, BUN 132, [employer] 7.2, glucose 141, Mag 2.4, T Bili 4.5, AST 423, ALT 201, Alk Phos 201, BNP >75654, Albumin 3.1, Troponin 0.57. blood cultures negative. U/A trace blood, leukocytes and casts. Chest X ray: possible small bilateral pleural effusions X rays of Lumbar and Cervical spine: No fractures, degenerative disease mild stenosis in C3-C4, abdominal aortic aneurysm CT of head: No acute findings EKG: SR with PAC's, Inferior infract age undetermined, can not r/o anteroseptal infarct, age undetermined. Renal US: bilateral renal cysts PMHX: chronic A fib, triple vessel disease, pulmonary hypertension, LVD, EF 25%, CKD, HTN,anemia. PHSx: Cardiac stents. Social History:Former heavy smoker, past alcohol use, no drug use. , live with spouse Family History: Non contributory Advance Care Planning: The patient has a POLST and is DNR/DNI. Review of Systems: As per HPI, denies all other complaints Past Patient History - Infectious Disease Hx of Infectious Diseases: None - Past Social History Smoking Status: Former Smoker - CARDIAC Hx Cardiac Disorders: Yes (hypotension, clubbing to fingertips b/l) Hx Congestive Heart Failure: Yes Hx Hypercholesterolemia: Yes Hx Hypertension: Yes Hx Peripheral Edema: Yes (ble +2 pitting) Hx Peripheral Vascular Disease: (hands are cold) Other/Comment: PTCA. h/o bradycardia & afib. h/o syncope. NSTEMI - PULMONARY Hx Respiratory Disorders: Yes (home o2) Hx Emphysema: Yes - NEUROLOGICAL Hx Neurological Disorder: Yes (syncope) - HEENT Hx HEENT Problems: No - RENAL Hx Chronic Kidney Disease: Yes - ENDOCRINE/METABOLIC Hx Endocrine Disorders: No - HEMATOLOGICAL/ONCOLOGICAL Hx Blood Disorders: Yes Hx Anemia: Yes - INTEGUMENTARY Hx Dermatological Problems: Yes Other/Comment: b/l arms purple skin discolorations, abd spots dry skin to chest and back, pt c/o itchy skin, multiple scratches to face, macerated/bleeding skin to sacrum covered with dry dressing,+2 pitting edema. discolored, multiple dry brown and red wounds to ble, brown dry scaley skin ble, thick dry toenails both feet, dry skin to feet, left great toe overlaps 2nd toe left foot bunyon, abrasion l/s spine - MUSCULOSKELETAL/RHEUMATOLOGICAL Hx Falls: Yes (fell yesterday) - GASTROINTESTINAL Hx Gastrointestinal Disorders: Yes (obese, polyps) - GENITOURINARY/GYNECOLOGICAL Hx Genitourinary Disorders: Yes Hx Incontinence: Yes - PSYCHIATRIC Hx Substance Use: No - SURGICAL HISTORY Hx Surgeries: Yes Hx Appendectomy: Yes Other/Comment: varicose vein sx, colonoscopies, skin lesion removed from nose negative as per pt - ANESTHESIA Hx Anesthesia Reactions: No Hx Malignant Hyperthermia: No Meds Allergies/Adverse Reactions: Allergies Allergy/AdvReac Type Severity Reaction Status Date / Time Penicillins Allergy RASH Verified 01/28/18 13:39 - Medications Medications: Current Medications Albuterol/Ipratropium (Duoneb 3 Mg/0.5 Mg (3 Ml) Ud) 3 ml IH [id number] PRN PRN Reason: Shortness of Breath Apixaban (Eliquis) 2.5 mg PO BID [facility]; Protocol Last Admin: 03/01/18 13:14 Dose: Not Given Clopidogrel Bisulfate (Plavix) 75 mg PO DAILY [facility] Last Admin: 03/01/18 13:15 Dose: Not Given NOREPINEPHRINE BIT/0.9 % NACL (Levophed 4 Mg/ 250 Ml Ns Premixed) 4 mg in 250 mls @ 7.5 mls/hr IV .Q24H PRN; Protocol PRN Reason: TITRATE PER MD ORDER Last Admin: 02/28/18 23:04 Dose: 4 mcg/min, 15 mls/hr Pantoprazole Sodium (Protonix Inj) 40 mg IVP DAILY [facility] Last Admin: 03/01/18 10:33 Dose: 40 mg Physical Exam - Constitutional Appears: Cachectic, Chronically Ill - Head Exam Head Exam: NORMOCEPHALIC - Eye Exam Eye Exam: PERRL, Scleral icterus - ENT Exam ENT Exam: Mucous Membranes Moist, Normal Oropharynx - Neck Exam Neck exam: Positive for: Normal Inspection - Respiratory Exam Respiratory Exam: Decreased Breath Sounds, Rales, NORMAL BREATHING PATTERN - Cardiovascular Exam Cardiovascular Exam: Irregular Rhythm, +S1, +S2 - GI/Abdominal Exam GI & Abdominal Exam: Distended, Normal Bowel Sounds, Soft - Extremities Exam Additional comments: 2+ bilateral lower extremity edema - Neurological Exam Neurological exam: Alert Additional comments: oriented to self and place - Skin Skin Exam: Dry, Pallor Additional comments: jaundice - Additional Findings Additional findings: Palliative performance scale rating 30% Results - Vital Signs Recent Vital Signs: Last Vital Signs Temp 98.4 F 03/01/18 04:00 Pulse 77 03/01/18 05:24 Resp 17 02/28/18 23:30 BP 98/44 L 02/28/18 23:30 Pulse Ox 91 L 02/28/18 23:30 - Labs Result Diagrams: 03/01/18 05:30 03/01/18 05:30 Labs: Laboratory Results - last 24 hr 02/28/18 02/28/18 02/28/18 13:30 13:30 13:30 WBC 8.1 D RBC 4.12 Hgb 11.7 L Hct 37.2 L MCV 90.3 MCH 28.4 MCHC 31.5 RDW 23.1 H Plt Count 54 L MPV Gran % 90.7 H Lymph % (Auto) 5.4 L [place] % (Auto) 3.9 Eos % (Auto) 0.0 L Baso % (Auto) 0.0 Gran # 7.38 H Lymph # (Auto) 0.4 L [place] # (Auto) 0.3 Eos # (Auto) 0.0 Baso # (Auto) 0.00 Neutrophils % (Manual) 91 H Lymphocytes % (Manual) 6 L Monocytes % (Manual) 3 Platelet Evaluation Low Poikilocytosis (manual 2+ Ovalocytes Slight Schistocytes Moderate PT INR APTT pO2 49 VBG pH 7.32 VBG pCO2 41.0 VBG HCO3 21.1 VBG Total CO2 22.4 VBG O2 Sat (Calc) 82.6 H VBG Base Excess -4.8 L VBG Potassium 6.1 H Sodium 124.0 L 128 L Chloride 84.0 L 85 L Glucose 146 H Lactate 3.7 H FiO2 21.0 Potassium 4.7 Carbon Dioxide 20 L Anion Gap 28 H BUN 132 H* Creatinine 7.2 H Est GFR ( Amer) 9 Est GFR (Non-Af Amer) 7 POC Glucose (mg/dL) Random Glucose 141 H Uric Acid Calcium 7.4 L Phosphorus Magnesium 2.4 H Total Bilirubin 4.5 H AST 423 H D ALT 300 H Alkaline Phosphatase 201 H D Troponin I 0.57 H* D NT-Pro-B Natriuret Pep > 77439 H Total Protein 6.8 Albumin 3.1 Globulin 3.6 Albumin/Globulin Ratio 0.9 L Venous Blood Potassium 6.1 H Urine Color Urine Appearance Urine pH Ur Specific [place] Urine Protein Urine Glucose (UA) Urine Ketones Urine Blood Urine Nitrate Urine Bilirubin Urine Urobilinogen Ur Leukocyte Esterase Urine RBC Urine WBC Ur Epithelial Cells Amorphous Sediment Urine Bacteria Coarse Granular Casts Urine Osmolality Ur Random Sodium 02/28/18 02/28/18 02/28/18 13:30 13:30 19:45 WBC RBC Hgb Hct MCV MCH MCHC RDW Plt Count MPV Gran % Lymph % (Auto) [place] % (Auto) Eos % (Auto) Baso % (Auto) Gran # Lymph # (Auto) [place] # (Auto) Eos # (Auto) Baso # (Auto) Neutrophils % (Manual) Lymphocytes % (Manual) Monocytes % (Manual) Platelet Evaluation Poikilocytosis (manual Ovalocytes Schistocytes PT 29.9 H INR 2.55 APTT 34.6 pO2 36 VBG pH 7.23 L VBG pCO2 40.0 VBG HCO3 16.8 L VBG Total CO2 18.0 L VBG O2 Sat (Calc) 62.3 VBG Base Excess -10.2 L VBG Potassium 5.1 Sodium 125.0 L Chloride 86.0 L Glucose 114 H Lactate 6.8 H* FiO2 21.0 Potassium Carbon Dioxide Anion Gap BUN Creatinine Est GFR ( Amer) Est GFR (Non-Af Amer) POC Glucose (mg/dL) Random Glucose Uric Acid Calcium Phosphorus Magnesium Total Bilirubin AST ALT Alkaline Phosphatase Troponin I NT-Pro-B Natriuret Pep Total Protein Albumin Globulin Albumin/Globulin Ratio Venous Blood Potassium 5.1 Urine Color Yellow Urine Appearance Sl cloudy Urine pH 5.5 Ur Specific [place] >= 1.030 Urine Protein >=300 H Urine Glucose (UA) Negative Urine Ketones Negative Urine Blood Trace-intact H Urine Nitrate Negative Urine Bilirubin Moderate H Urine Urobilinogen 0.2 Ur Leukocyte Esterase Trace H Urine RBC 0 - 2 Urine WBC 2 - 5 Ur Epithelial Cells 1 - 3 Amorphous Sediment Small Urine Bacteria Mod Coarse Granular Casts Trace H Urine Osmolality Ur Random Sodium 02/28/18 02/28/18 02/28/18 19:45 20:30 20:30 WBC RBC Hgb Hct MCV MCH MCHC RDW Plt Count MPV Gran % Lymph % (Auto) [place] % (Auto) Eos % (Auto) Baso % (Auto) Gran # Lymph # (Auto) [place] # (Auto) Eos # (Auto) Baso # (Auto) Neutrophils % (Manual) Lymphocytes % (Manual) Monocytes % (Manual) Platelet Evaluation Poikilocytosis (manual Ovalocytes Schistocytes PT INR APTT pO2 VBG pH VBG pCO2 VBG HCO3 VBG Total CO2 VBG O2 Sat (Calc) VBG Base Excess VBG Potassium Sodium Chloride Glucose Lactate FiO2 Potassium Carbon Dioxide Anion Gap BUN Creatinine Est GFR ( Amer) Est GFR (Non-Af Amer) POC Glucose (mg/dL) Random Glucose Uric Acid 19.7 H Calcium Phosphorus Magnesium Total Bilirubin AST ALT Alkaline Phosphatase Troponin I NT-Pro-B Natriuret Pep Total Protein Albumin Globulin Albumin/Globulin Ratio Venous Blood Potassium Urine Color Urine Appearance Urine pH Ur Specific [place] Urine Protein Urine Glucose (UA) Urine Ketones Urine Blood Urine Nitrate Urine Bilirubin Urine Urobilinogen Ur Leukocyte Esterase Urine RBC Urine WBC Ur Epithelial Cells Amorphous Sediment Urine Bacteria Coarse Granular Casts Urine Osmolality 343 Ur Random Sodium 37 02/28/18 03/01/18 03/01/18 21:52 00:02 03:33 WBC RBC Hgb Hct MCV MCH MCHC RDW Plt Count MPV Gran % Lymph % (Auto) [place] % (Auto) Eos % (Auto) Baso % (Auto) Gran # Lymph # (Auto) [place] # (Auto) Eos # (Auto) Baso # (Auto) Neutrophils % (Manual) Lymphocytes % (Manual) Monocytes % (Manual) Platelet Evaluation Poikilocytosis (manual Ovalocytes Schistocytes PT INR APTT pO2 23 L 32 VBG pH 7.27 L 7.30 L VBG pCO2 41.0 41.0 VBG HCO3 18.8 L 20.2 L VBG Total CO2 20.1 L 21.5 L VBG O2 Sat (Calc) 34.0 L 56.9 VBG Base Excess -7.7 L -5.9 L VBG Potassium 5.2 5.3 H Sodium 127.0 L 126.0 L Chloride 89.0 L 88.0 L Glucose 104 110 Lactate 5.2 H* 3.3 H FiO2 21.0 21.0 Potassium Carbon Dioxide Anion Gap BUN Creatinine Est GFR ( Amer) Est GFR (Non-Af Amer) POC Glucose (mg/dL) 106 Random Glucose Uric Acid Calcium Phosphorus Magnesium Total Bilirubin AST ALT Alkaline Phosphatase Troponin I NT-Pro-B Natriuret Pep Total Protein Albumin Globulin Albumin/Globulin Ratio Venous Blood Potassium 5.2 5.3 H Urine Color Urine Appearance Urine pH Ur Specific [place] Urine Protein Urine Glucose (UA) Urine Ketones Urine Blood Urine Nitrate Urine Bilirubin Urine Urobilinogen Ur Leukocyte Esterase Urine RBC Urine WBC Ur Epithelial Cells Amorphous Sediment Urine Bacteria Coarse Granular Casts Urine Osmolality Ur Random Sodium 03/01/18 03/01/18 03/01/18 05:30 05:30 05:30 WBC 9.4 RBC 3.77 Hgb 10.6 L Hct 33.6 L MCV 89.1 MCH 28.1 MCHC 31.5 RDW 22.9 H Plt Count 48 L* MPV Gran % 92.4 H Lymph % (Auto) 4.9 L [place] % (Auto) 2.7 Eos % (Auto) 0.0 L Baso % (Auto) 0.0 Gran # 8.69 H Lymph # (Auto) 0.5 L [place] # (Auto) 0.3 Eos # (Auto) 0.0 Baso # (Auto) 0.00 Neutrophils % (Manual) Lymphocytes % (Manual) Monocytes % (Manual) Platelet Evaluation Poikilocytosis (manual Ovalocytes Schistocytes PT INR APTT pO2 VBG pH VBG pCO2 VBG HCO3 VBG Total CO2 VBG O2 Sat (Calc) VBG Base Excess VBG Potassium Sodium 129 L Chloride 90 L Glucose Lactate FiO2 Potassium 5.0 Carbon Dioxide 18 L Anion Gap 26 H BUN 132 H* Creatinine 7.1 H Est GFR ( Amer) 9 Est GFR (Non-Af Amer) 7 POC Glucose (mg/dL) Random Glucose 109 Uric Acid Calcium 6.5 L* Phosphorus 8.7 H Magnesium 2.2 Total Bilirubin 4.4 H AST 562 H D ALT 328 H Alkaline Phosphatase 168 H Troponin I 0.48 H* NT-Pro-B Natriuret Pep Total Protein 5.8 Albumin 2.7 L Globulin 3.1 Albumin/Globulin Ratio 0.8 L Venous Blood Potassium Urine Color Urine Appearance Urine pH Ur Specific [place] Urine Protein Urine Glucose (UA) Urine Ketones Urine Blood Urine Nitrate Urine Bilirubin Urine Urobilinogen Ur Leukocyte Esterase Urine RBC Urine WBC Ur Epithelial Cells Amorphous Sediment Urine Bacteria Coarse Granular Casts Urine Osmolality Ur Random Sodium Assessment & Plan - Assessment and Plan (Free Text) Assessment: 88 year old male with multiple medical comorbidities(see PMH) who is admitted with ABISAI on CKD,acute liver injury,hyponatremia, jaundice thrombocytopenia, shortness of breath, lower extremity edema and weakness. The patient is alert, oriented to place and self. He remembered meeting me on his last admission. The patient affirms that he is DNR/DNI. I explained that in addition to progressive heart disease he now has acute kidney /liver failure. The patient understands this and states that he does not want dialysis. I explained that complete kidney failure is incompatible with life and that he would not survive He verbalized understanding of this. I offered option for comfort /hospice care. I explained some of the hospice services. ready to make decision at this time. I told him that it would be a good idea for involve his family in this decision making process and offered to contact his son, Timothy. The patient was agreeable to this I spoke with patients son, Timothy via phone. Explained patients medical condition and offered to discuss care options. Hospice offered. Hospice services explained in detail, questions answered. Time spent with patient/son in goals of care and advance care planning discussion, 45 minutes Plan: Goals of care and advance care planning ABISAI on CKD: Continue hydration, monitor labs, Nephro notes appreciated Empiric antibiotics discontinued, ID consult pending Eliquis>Cardiology consult pending for further recs
--- NOTE | 2018-03-01 14:24 | PN ---
DATE: 03/01/2018 SUBJECTIVE: The patient is seen lying in bed. He is awake, he is alert. He is sitting up. He is asking for water. He appears comfortable. He does not appear to be in any kind of respiratory distress. He is currently receiving Levophed at 2 mcg/min. PHYSICAL EXAMINATION: GENERAL: Elderly male lying in bed in the ICU. VITAL SIGNS: Blood pressure 98/48, heart rate 68, respiratory rate 17, and temperature 98.4. HEENT: Normocephalic, atraumatic, positive pallor. NECK: Supple, no JVD. LUNGS: Bilateral equal air entry, bilateral equal expansion, no rales appreciated. CARDIAC: S1 and S2, regular rate and rhythm, positive murmur, no rub. ABDOMEN: Obese, distended, soft, nontender, bowel sounds present. EXTREMITIES: Chronic stasis changes, 3+ pitting edema of the lower extremities, skin breakdown, dry skin. SKIN: Multiple petechiae over the trunk and upper extremities, multiple ecchymoses. INTAKE AND OUTPUT: 3000/not charted. LABORATORY DATA: WBC 9.4, hemoglobin 10, hematocrit 33.6, and platelets 48. Sodium 129, potassium 5, chloride 90, CO2 of 18. BUN 132, creatinine 7.1. Glucose 109. Calcium 6.5, phosphorus 8.7, magnesium 2.2. Total bili 4.4, AST 562, ALT 328. Troponin 0.48. Albumin 2.7, globulin 3.1. Urine sodium 37, urine osmolality 343. Serum uric acid 19.7. Blood cultures, no growth. Renal ultrasound, right kidney 8.9, left kidney 7.8. No hydronephrosis, bilateral renal cysts. CURRENT MEDICATIONS: DuoNeb, Eliquis 2.5 b.i.d., Levophed 4 mcg/min, Plavix 75, Protonix 40, Azactam 1 g given yesterday, ciprofloxacin 400 given yesterday, and vancomycin 1 g given yesterday. ASSESSMENT: 1. Acute kidney injury superimposed on chronic kidney disease stage IV, ?in the setting of sepsis and ? 2. Hyponatremia, suspect depletional. 3. History of severe pulmonary hypertension. 4. Coronary artery disease, percutaneous transluminal coronary angioplasty and stent x2. 5. Acute liver injury, elevated liver function tests, elevated the INR, low platelets. 6. Oligoanuric. 7. Elevated troponin, likely secondary to renal insufficiency. 8. Chronic lower extremity edema. 9. Dementia?. PLAN: 1. Check abdominal ultrasound. 2. Check fibrinogen level, haptoglobin. 3. Continue IV fluid resuscitation. 4. Continue inotropic support. 5. Continue empiric antibiotics. 6. No renal replacement therapy planned, case discussed with daughter at length yesterday, renal replacement therapy not desired. Case discussed with ICU attending, case discussed with ICU nursing staff, more than 35 minutes spent in the care of this critically ill patient. Kimberly Bolanos MD
[2018-03-01] MEDS ORDERED: Oxycodone/Acetaminophen 5/325 mg Tab ONE (15:02)
[2018-03-01 15:43] LABS: INR 2.7; PROTHROMBIN TIME 31.4 SECONDS (9.4-12.5)
[2018-03-01 16:22] LABS: PARTIAL THROMBOPLASTIN TIME 34.3 Seconds (25.1-36.5)
--- NOTE | 2018-03-01 18:18 | RAD ---
HISTORY: check picc line placement COMPARISON: Chest x-ray performed 02/28/18 TECHNIQUE: Chest, one view. FINDINGS: Right-sided PICC extends to the expected location of the right atrium. Examination limited by habitus and hypoinflation. LUNGS: Moderate pulmonary venous congestion. 5 mm nodular density within the inferior aspect of the right upper lobe, possibly prominent vessel on end versus calcified granuloma. PLEURA: Trace bilateral pleural effusions. No definite pneumothorax . CARDIOVASCULAR: Severe enlargement of the cardiomediastinal silhouette re-identified. Dense atherosclerotic calcifications of an ectatic aorta. OSSEOUS STRUCTURES: Degenerative changes. VISUALIZED UPPER ABDOMEN: Unremarkable. OTHER FINDINGS: None. IMPRESSION: Right-sided PICC extends to the expected location of the right atrium. Severe enlargement of the cardiomediastinal silhouette re-identified. Dense atherosclerotic calcifications of an ectatic aorta. 5 mm nodular density within the inferior aspect of the right upper lobe, possibly prominent vessel on end versus calcified granuloma.
[2018-03-01] MEDS: NOREPINEPHRINE BIT/0.9 % NACL 4 MG/250 ML BAG IV PRN (19:50)
--- NOTE | 2018-03-02 01:06 | CON ---
DATE: 03/01/2018 Cardiology consult was called for non-STEMI. The patient seen and chart reviewed, found to be the patient is being followed by Dr. Ellis. The patient is a poor historian. Electronic medical record shows the patient is a poor historian. So we will sign off ourself and put Dr. Ellis on consult. Also inform Dr. Antonio and inform Dr. Ellis as well through the text message. Faith Betancourt MD
--- NOTE | 2018-03-02 03:14 | CP.PCM.PRO ---
Addendum entered and electronically signed by Lucero Choe MD 03/02/18 06:03: Agree with documentation. Addendum entered and electronically signed by Nadia Gilliam DO 03/02/18 05:58: Please note that the EDRS number is [id number]. Original Note: Pronouncement of Note - Clinical Findings Physical Exam: No Response Verbal/Painful Stimuli, Absent Peripheral Pulses{Carotid & Femoral}, Absent Heart & Breath Sounds, No Pupillary Light Reflex, No Corneal Reflex, Pupils Fixed & Dilated, Absence of Vital Signs - Pronouncement Time Time of Pronouncement of : 03:03 - Notifications Pronouncement Notifications: Family Notified, Atending Notified (Dr Antonio said that he will notify family, patient's son Timothy) Radio Time Salesperson Notified: No - Autopsy Autopsy Requested: No - [id number] website is currently down
[2018-03-02 04:11] VITALS: TEMP 97.6
[2018-03-02 04:25] VITALS: BP 64/40; PULSE 80; RESP 9; O2SAT 83
== END 2018-03-02 03:03 | DRG 871 ==
LOC: ED 12:36 → ERH 14:42 → CCU 16:16
PROVIDERS: ADMIT Internal Medicine; ATTEND Internal Medicine
DX: A41.9 Sepsis, unspecified organism (principal); I21.4 Non-ST elevation (NSTEMI) myocardial infarction; N17.9 Acute kidney failure, unspecified; R57.9 Shock, unspecified; E87.1 Hypo-osmolality and hyponatremia; E87.2 Acidosis; I13.0 Hypertensive heart and chronic kidney disease with heart failure and stage 1 through stage 4 chronic kidney disease, or unspecified chronic kidney disease; I42.9 Cardiomyopathy, unspecified; N18.4 Chronic kidney disease, stage 4 (severe); N39.0 Urinary tract infection, site not specified; R65.20 Severe sepsis without septic shock; D69.6 Thrombocytopenia, unspecified; E78.00 Pure hypercholesterolemia, unspecified; E86.0 Dehydration; F03.90 Unspecified dementia, unspecified severity, without behavioral disturbance, psychotic disturbance, mood disturbance, and anxiety; I25.10 Atherosclerotic heart disease of native coronary artery without angina pectoris; I27.29 Other secondary pulmonary hypertension; I48.2 Chronic atrial fibrillation; I50.810 Right heart failure, unspecified; I71.4 Abdominal aortic aneurysm, without rupture; I73.9 Peripheral vascular disease, unspecified; J43.9 Emphysema, unspecified; K72.90 Hepatic failure, unspecified without coma; K76.1 Chronic passive congestion of liver; K82.9 Disease of gallbladder, unspecified; M48.02 Spinal stenosis, cervical region; N28.1 Cyst of kidney, acquired; W19.XXXA Unspecified fall, initial encounter; Y92.009 Unspecified place in unspecified non-institutional (private) residence as the place of occurrence of the external cause; Z51.5 Encounter for palliative care; Z66 Do not resuscitate; Z79.01 Long term (current) use of anticoagulants; Z79.02 Long term (current) use of antithrombotics/antiplatelets; Z87.891 Personal history of nicotine dependence; Z90.49 Acquired absence of other specified parts of digestive tract; Z95.5 Presence of coronary angioplasty implant and graft; Z99.81 Dependence on supplemental oxygen; Z88.0 Allergy status to penicillin; L81.9 Disorder of pigmentation, unspecified; I07.1 Rheumatic tricuspid insufficiency; D64.9 Anemia, unspecified; R32 Unspecified urinary incontinence